=== PATIENT | male | born 1975 | race Caucasian/White ===

== ENCOUNTER 2017-02-06 12:33 | Emergency (ER) | payer OTHER ==
[2017-02-06 13:00] VITALS: RESP 18
[2017-02-06] MEDS ORDERED: KETOROLAC 60 MG/2 ML VIAL IM STA (13:14)
--- NOTE | 2017-02-06 13:14 | ED ---
Neck Injury/Pain HPI - General Chief Complaint: Neck Pain/Injury Stated Complaint: LUMP ON NECK--POSS CLOT Time Seen by Provider: 02/06/17 13:04 Source: RN notes reviewed Mode of arrival: wheelchair Limitations: no limitations - History of Present Illness Initial Comments: 41 yo male presents to the ER with a chief complaint of left-sided neck. Patient was last night he noticed a small bump to the left lateral aspect of the neck. Patient is tenderness surrounding the area. Patient states that shoots down his left arm. Patient does admit to a history of a DVT. Patient states he hasn't had any fever chills with this. Patient denies any cough cold. Patient states that he was concerned due to the continued pain so he thought that he should be seen. Patient states that the blood clot he had in the past was due to an injury is not currently on any anticoagulation. Patient states he hasn't had any fever chills denies headache.Patient denies any recent fever, chills, shortness of breath, chest pain, back pain, abdominal pain, nausea vomiting, numbness or tingling, dysuria or hematuria, constipation or diarrhea, headaches or visual changes, or any other current symptoms. - Related Data Home Medications Medication Instructions Recorded Confirmed Naproxen Sodium [Aleve] 220 mg PO DAILY PRN 02/06/17 02/06/17 Previous Rx's Medication Instructions Recorded Amoxicillin/Potassium Clav 1 tab PO Q12HR #20 tab 02/06/17 [Augmentin 875-125 Tablet] Hydrocodone/Acetaminophen [Hudson 1 each PO Q6HR PRN #20 tab 02/06/17 5-325] Allergies Allergy/AdvReac Type Severity Reaction Status Date / Time morphine AdvReac Unknown Hallucinati Verified 02/06/17 13:13 ons Review of Systems ROS Statement: Those systems with pertinent positive or pertinent negative responses have been documented in the HPI. ROS Other: All systems not noted in ROS Statement are negative. Past Medical History Past Medical History: Chest Pain / Angina, COPD, Deep Vein Thrombosis (DVT), GERD/Reflux Additional Past Medical History / Comment(s): sciatica , pneumothorax x2, emphysema,DJD,KIDNEY STONES,HIATAL HERNIA, History of Any Multi-Drug Resistant Organisms: None Reported Past Surgical History: Heart Catheterization Additional Past Surgical History / Comment(s): left lung biopsy, BLEBS REMOVED, spontaneous pneumo X2 requitring c/t. HAD TUBES IN EAR CHILD, ENDOSCOPY Past Anesthesia/Blood Transfusion Reactions: No Reported Reaction Past Psychological History: Anxiety, Depression Additional Psychological History / Comment(s): ATIVAN, stopped taking ativan, pt uses marijuana Smoking Status: Current every day smoker Past Alcohol Use History: Occasional Additional Past Alcohol Use History / Comment(s): STARTED SMOKING AT AGE 12- SMOKES 1 ppd, stated on weekends will drink case of 30 beer and during week may have 1-2 after work Past Drug Use History: Marijuana - Past Family History Father Family Medical History: Cancer, COPD, Hyperlipidemia, Hypertension, Myocardial Infarction ([place]), Renal Disease Additional Family Medical History / Comment(s): DAD AT AGE 67- EMPHYSEMA, VALVE REPLACEMENT 1983, of carcinoma "CUPS" Mother Additional Family Medical History / Comment(s): MOM IS 70 HAS MS General Exam - General Exam Comments Initial Comments: General: The patient is awake and alert, in no distress, and does not appear acutely ill. Eye: Pupils are equal, round and reactive to light, extra-ocular movements are intact; there is normal conjunctiva bilaterally. No signs of icterus. Ears, nose, mouth and throat: There are moist mucous membranes. Neck: The neck is supple, there is tenderness of the left lateral aspect of the neck with a palpable nodule most consistent with lymph node. No induration noted. Cardiovascular: There is a regular rate and rhythm. No murmur, rub or gallop is appreciated. Respiratory: Lungs are clear to auscultation, respirations are non-labored, breath sounds are equal. No wheezes, stridor, rales, or rhonchi. Back: There is no tenderness to palpation in the midline. There is no obvious deformity. No rashes noted. Musculoskeletal: Normal ROM, no tenderness, There is no pedal edema. There is no calf tenderness or swelling. Sensation intact. Pulses equal bilaterally 2+. Neurological: CN II-XII intact, There are no obvious motor or sensory deficits. Coordination appears grossly intact. Speech is normal. Skin: Skin is warm and dry and no rashes or lesions are noted. Psychiatric: Cooperative, appropriate mood & affect, normal judgment. Limitations: no limitations Course Vital Signs 02/06/17 12:57 Temperature 98.3 F Pulse Rate 83 Respiratory 18 Rate Blood Pressure 126/91 O2 Sat by Pulse 97 Oximetry Medical Decision Making - Medical Decision Making 40-year-old male presents with left lateral neck pain. Patient CAT scan and ultrasound and lab work was reviewed. There is an increased amount of lymph nodes. We'll start him antibiotics. We did discuss this could also be cancerous. We will give him heme oncology to follow-up with this we discussed the risk of this. We will also start him on warm compresses and antibiotics for superficial thrombosis as well as enlarged lymph nodes. We discussed giving something for pain as well. We discussed return parameters. We discussed all the patient's questions. Concerns. They stated he understood and they aren't inflamed. This time they will be discharged home. - Lab Data Result diagrams: 02/06/17 14:50 02/06/17 14:50 Lab Results 02/06/17 02/06/17 Range/Units 14:50 14:50 WBC 7.4 (3.8-10.6) k/uL RBC 5.02 (4.30-5.90) m/uL Hgb 16.8 (13.0-17.5) gm/dL Hct 50.6 (39.0-53.0) % MCV 100.6 H (80.0-100.0) fL MCH 33.4 (25.0-35.0) pg MCHC 33.2 (31.0-37.0) g/dL RDW 13.8 (11.5-15.5) % Plt Count 206 (150-450) k/uL Neutrophils % 47 % Lymphocytes % 36 % Monocytes % 9 % Eosinophils % 3 % Basophils % 2 % Neutrophils # 3.5 (1.3-7.7) k/uL Lymphocytes # 2.6 (1.0-4.8) k/uL Monocytes # 0.7 (0-1.0) k/uL Eosinophils # 0.2 (0-0.7) k/uL Basophils # 0.1 (0-0.2) k/uL Macrocytosis Slight Sodium 140 (137-145) mmol/L Potassium 4.4 (3.5-5.1) mmol/L Chloride 106 (98-107) mmol/L Carbon Dioxide 23 (22-30) mmol/L Anion Gap 11 mmol/L BUN 16 (9-20) mg/dL Creatinine 0.91 (0.66-1.25) mg/dL Est GFR (MDRD) Af Amer >60 (>60 ml/min/1.73 sqM) Est GFR (MDRD) Non-Af >60 (>60 ml/min/1.73 sqM) Glucose 72 L (74-99) mg/dL Calcium 9.7 (8.4-10.2) mg/dL Total Bilirubin 0.6 (0.2-1.3) mg/dL AST 19 (17-59) U/L ALT 24 (21-72) U/L Alkaline Phosphatase 64 (38-126) U/L Total Protein 7.2 (6.3-8.2) g/dL Albumin 4.2 (3.5-5.0) g/dL - Radiology Data Radiology results: report reviewed, image reviewed Disposition Clinical Impression: Superficial thrombophlebitis, Lymphadenopathy, Neck pain on left side Disposition: HOME SELF-CARE Condition: Stable Instructions: Lymphadenopathy (ED), Superficial Thrombophlebitis (ED) Additional Instructions: Please use medication as discussed. Please follow up with family doctor if symptoms have not improved over the next two days. Please return to the emergency room if your symptoms increase or worsen or for any other concerns. Prescriptions: Amoxicillin/Potassium Clav [Augmentin 875-125 Tablet] 1 tab PO Q12HR #20 tab Hydrocodone/Acetaminophen [Hudson 5-325] 1 each PO Q6HR PRN #20 tab PRN Reason: Pain Referrals: Graciela Alexander MD [Primary Care Provider] - 1-2 days Steve Harrington MD [STAFF PHYSICIAN] - 1-2 days Time of Disposition: 16:50
--- NOTE | 2017-02-06 14:25 | US ---
EXAMINATION TYPE: US venous doppler duplex UE LT DATE OF EXAM: 02/06/2017 1:51 PM COMPARISON: NONE CLINICAL HISTORY: Pain. shoulder and finger pain left arm, history of DVT right arm, patient not curr ently on thinners SIDE PERFORMED: left TECHNOLOGIST IMPRESSION: wnl Left Arm: Negative for DVT Satisfactory color flow, asystole, and compressibility is seen in left internal jugular vein. There i s satisfactory color flow and phasicity in the left subclavian vein. There is satisfactory compressib ility and color flow in the left axillary as well as brachial veins. There is satisfactory color flow and phasicity in the superficial basilic and cephalic veins. Satisfactory compressibility and color flow is seen in the radial and ulnar veins. IMPRESSION: No ultrasound evidence for acute DVT in the left upper extremity
--- NOTE | 2017-02-06 14:26 | US ---
EXAMINATION TYPE: US extremity nonvasc mass LT DATE OF EXAM: 02/06/2017 1:28 PM COMPARISON: NONE CLINICAL HISTORY: Pain. palp area just under left ear TECHNOLOGIST IMPRESSION: scanned area of concern, palpable area under left ear, there is 2.1 cm oval density, probable node, deep, and more superficially there is a 0.9 cm density, probable node. Scanning of area of clinical concern shows oval well-circumscribed lesion measuring 2.1 cm on long ax is. This lymph node does not have typical benign morphology. Smaller lesion is seen in the subcutaneo us layer towards end of study is oval and well-circumscribed IMPRESSION: Nonspecific lesions, abnormal adenopathy is not excluded. Consider nonemergent CT correl ation.
[2017-02-06] MEDS ORDERED: RX INFO: IV CONTRAST WAS GIVEN 1 EACH MISC MISCELLANE PRN (14:36)
[2017-02-06] MEDS ORDERED: SODIUM CHLORIDE 0.9% 1,000 ML IV STA (14:38)
[2017-02-06] MEDS ORDERED: KETOROLAC 30 MG/ML 1 ML VIAL IVP STA (14:38)
[2017-02-06 15:11] LABS: Basophils # (A) 0.1 k/uL (0-0.2); Basophils % (A) 2 %; CH 33.8; CHCM 33.8; Eosinophils # (A) 0.2 k/uL (0-0.7); Eosinophils % (A) 3 %; HCT 50.6 % (39.0-53.0); HDW 2.28; HGB 16.8 gm/dL (13.0-17.5); Luc # (Auto) 0.32; Luc % (Auto) 4; Lymphocytes # (A) 2.6 k/uL (1.0-4.8); Lymphocytes % (A) 36 %; MCH 33.4 pg (25.0-35.0); MCHC 33.2 g/dL (31.0-37.0); MCV 100.6 fL (80.0-100.0); Macrocytosis Slight; Mean Platelet Volume 8.7; Monocytes # (A) 0.7 k/uL (0-1.0); Monocytes % (A) 9 %; Neutrophils # (A) 3.5 k/uL (1.3-7.7); Neutrophils % (A) 47 %; RBC 5.02 m/uL (4.30-5.90); RDW 13.8 % (11.5-15.5); WBC 7.4 k/uL (3.8-10.6); WBC (Perox) 7.53
[2017-02-06] MEDS ORDERED: HYDROcodone/APAP 5-325MG 1 EACH TAB PO STA (15:19)
[2017-02-06 15:22] LABS: ALT 24 U/L (21-72); AST 19 U/L (17-59); Alkaline Phosphatase 64 U/L (38-126); Anion Gap 11 mmol/L; Blood Urea Nitrogen 16 mg/dL (9-20); Calcium 9.7 mg/dL (8.4-10.2); Carbon Dioxide 23 mmol/L (22-30); Chloride 106 mmol/L (98-107); Glucose 72 mg/dL (74-99); Non-African American GFR(MDRD) >60 (>60 ml/min/1.73 sqM); Potassium 4.4 mmol/L (3.5-5.1); Sodium 140 mmol/L (137-145); Total Bilirubin 0.6 mg/dL (0.2-1.3); Total Protein 7.2 g/dL (6.3-8.2)
--- NOTE | 2017-02-06 16:33 | CT ---
EXAMINATION TYPE: CT soft tissue neck w con DATE OF EXAM: 02/06/2017 3:51 PM HISTORY: Pt states of lump to left side of neck under ear. COMPARISON: CT neck May 31, 2016. Same day targeted neck ultrasound CT DLP: 376.2 mGycm. Automated Exposure Control for Dose Reduction was Utilized. TECHNIQUE: CT scan of the neck is performed with IV Contrast, patient injected with 100 mL of Omnipa que 300, axial images are obtained, coronal and sagittal reformatted images are reviewed. FINDINGS: A metallic BB is placed at level of palpable abnormality left sternocleidomastoid mastoid level. Ther e is tubular shaped low dense structure suspicious for draining thrombosed superficial or external ve in at this level. There are adjacent subcentimeter lymph nodes which correlate with recent ultrasound felt to reflect benign lymph nodes. There are diffuse prominent but subcentimeter lymph nodes throug hout the neck bilaterally. No definitive greater than 1 cm lymph nodes are present. A dominant left vertebral artery is incidentally noted. Patient has very little fat making evaluation suboptimal. Parotid and submandibular glands are symmetric and felt within normal limits. There is n o significant focal plaque in carotid bulbs bilaterally. Visualized sinuses are clear. Spine is strai ghtened. There is mild emphysematous change in visualized lungs. Airway is patent. Thyroid gland is u nremarkable. IMPRESSION: There are prominent but still subcentimeter lymph nodes throughout the neck bilaterally. Number of lymph nodes is more than typical though not significantly changed from 2016 study. Infectio us process or neoplasm/lymphoma is not entirely excluded. Need to further investigate by PET CT exam should be based on clinical and lab correlation. Consider hematology follow-up. Suspect probable or p ossible external jugular or superficial vein thrombus at level of palpable abnormality in the left ne ck.
[2017-02-06] MEDS ORDERED: HYDROmorphone 1 MG/ML 1 ML SYRINGE IVP STA (16:51)
[2017-02-06 16:58] VITALS: BP 141/76; PULSE 60; TEMP 98.6
== END 2017-02-06 17:11 | disposition home or self-care (01) ==
LOC: EC 12:33
DX: I80.8 Phlebitis and thrombophlebitis of other sites (principal); R59.1 Generalized enlarged lymph nodes; M54.2 Cervicalgia; F17.200 Nicotine dependence, unspecified, uncomplicated; Z88.5 Allergy status to narcotic agent
CPT/HCPCS: 36415; 80053; 85025; 76882; 93971; 70491; 99284; 96374; 96372; J1885; J1170; Q9967

== ENCOUNTER 2017-03-09 12:33 | Emergency (ER) | payer OTHER ==
[2017-03-09 12:38] VITALS: TEMP 98.2
[2017-03-09] MEDS ORDERED: RX INFO: IV CONTRAST WAS GIVEN 1 EACH MISC MISCELLANE PRN (13:07)
--- NOTE | 2017-03-09 13:12 | ED ---
General Adult HPI - General Chief complaint: Syncope Stated complaint: Syncope, Chest Pain, Hand Injury Time Seen by Provider: 03/09/17 13:00 Source: patient Mode of arrival: ambulatory Limitations: no limitations - History of Present Illness Initial comments: Patient is a pleasant 41-year-old male presenting to the emergency department following syncopal episode. Patient states he actually had 2 episodes. Patient states he may have hurt his neck when he fell. Patient has had a mild headache for the past couple of weeks. Patient has some mild chest discomfort. No dyspnea except for his chronic COPD which is unchanged. No fevers. Patient did have emotional upset earlier. Patient did punch a wooden fence several times with his hand. Patient refuses tetanus immunization. Patient does have a history of blood clot. Patient is not currently on blood thinners. Patient states he took himself off them. - Related Data Home Medications Medication Instructions Recorded Confirmed No Known Home Medications [No 03/09/17 03/09/17 Known Home Medications] Allergies Allergy/AdvReac Type Severity Reaction Status Date / Time morphine AdvReac Unknown Hallucinati Verified 03/09/17 13:46 ons Review of Systems ROS Statement: Those systems with pertinent positive or pertinent negative responses have been documented in the HPI. ROS Other: All systems not noted in ROS Statement are negative. Constitutional: Denies: fever Eyes: Denies: eye pain ENT: Denies: ear pain Respiratory: Denies: cough Cardiovascular: Reports: chest pain Endocrine: Denies: fatigue Gastrointestinal: Denies: abdominal pain Genitourinary: Denies: dysuria Musculoskeletal: Denies: back pain Skin: Denies: lesions Neurological: Reports: headache Past Medical History Past Medical History: Chest Pain / Angina, COPD, Deep Vein Thrombosis (DVT), GERD/Reflux Additional Past Medical History / Comment(s): sciatica , pneumothorax x2, emphysema,DJD,KIDNEY STONES,HIATAL HERNIA, History of Any Multi-Drug Resistant Organisms: None Reported Past Surgical History: Heart Catheterization Additional Past Surgical History / Comment(s): left lung biopsy, BLEBS REMOVED, spontaneous pneumo X2 requitring c/t. HAD TUBES IN EAR CHILD, ENDOSCOPY Past Anesthesia/Blood Transfusion Reactions: No Reported Reaction Past Psychological History: Anxiety, Depression Additional Psychological History / Comment(s): ATIVAN, stopped taking ativan, pt uses marijuana Smoking Status: Current every day smoker Past Alcohol Use History: Occasional Additional Past Alcohol Use History / Comment(s): STARTED SMOKING AT AGE 12- SMOKES 1 ppd, stated on weekends will drink case of 30 beer and during week may have 1-2 after work Past Drug Use History: Marijuana - Past Family History Father Family Medical History: Cancer, COPD, Hyperlipidemia, Hypertension, Myocardial Infarction ([place]), Renal Disease Additional Family Medical History / Comment(s): DAD AT AGE 67- EMPHYSEMA, VALVE REPLACEMENT 1983, of carcinoma "CUPS" Mother Additional Family Medical History / Comment(s): MOM IS 70 HAS MS General Exam Limitations: no limitations General appearance: alert, in no apparent distress Head exam: Present: atraumatic Eye exam: Present: normal appearance, PERRL ENT exam: Present: normal oropharynx Neck exam: Present: normal inspection Respiratory exam: Present: normal lung sounds bilaterally. Absent: chest wall tenderness Cardiovascular Exam: Present: regular rate, normal rhythm Expanded Peripheral pulses: 2+: Radial (R), Radial (L), Dorsalis Pedis (R), Dorsalis Pedis (L) GI/Abdominal exam: Present: soft. Absent: tenderness Extremities exam: Present: other (Right hand with swelling and abrasions) Neurological exam: Present: alert, CN II-XII intact. Absent: motor sensory deficit Expanded Cranial nerves: EOM's Intact: Normal Motor strength exam: RUE: 5, LUE: 5, RLE: 5, LLE: 5 Psychiatric exam: Present: normal affect, normal mood Skin exam: Absent: rash Course Vital Signs 03/09/17 03/09/17 12:35 14:39 Temperature 98.2 F Pulse Rate 85 82 Respiratory 18 16 Rate Blood Pressure 148/85 151/73 O2 Sat by Pulse 98 98 Oximetry EKG Findings - EKG Comments: EKG Findings:: Normal sinus rhythm at 86. Normal intervals. Normal axis. Normal QRS. Normal ST-T. Medical Decision Making - Medical Decision Making Patient was reevaluated and resting comfortably in bed. Symptoms are very mild at this time. Patient is advised of recommendation for admission. Patient is updated on results. Patient does demonstrate medical decision making. Patient refuses admission and will leave AGAINST MEDICAL ADVICE. - Lab Data Result diagrams: 03/09/17 13:21 03/09/17 13:21 Lab Results 03/09/17 03/09/17 03/09/17 Range/Units 13:21 13:21 13:21 WBC 8.7 (3.8-10.6) k/uL RBC 5.36 (4.30-5.90) m/uL Hgb 18.0 H (13.0-17.5) gm/dL Hct 54.2 H (39.0-53.0) % MCV 101.1 H (80.0-100.0) fL MCH 33.6 (25.0-35.0) pg MCHC 33.2 (31.0-37.0) g/dL RDW 13.8 (11.5-15.5) % Plt Count 192 (150-450) k/uL Neutrophils % 66 % Lymphocytes % 21 % Monocytes % 7 % Eosinophils % 1 % Basophils % 2 % Neutrophils # 5.7 (1.3-7.7) k/uL Lymphocytes # 1.9 (1.0-4.8) k/uL Monocytes # 0.6 (0-1.0) k/uL Eosinophils # 0.1 (0-0.7) k/uL Basophils # 0.1 (0-0.2) k/uL Macrocytosis Slight PT (9.0-12.0) sec INR (<1.1) APTT (22.0-30.0) sec Sodium 140 (137-145) mmol/L Potassium 4.3 (3.5-5.1) mmol/L Chloride 106 (98-107) mmol/L Carbon Dioxide 24 (22-30) mmol/L Anion Gap 10 mmol/L BUN 13 (9-20) mg/dL Creatinine 0.78 (0.66-1.25) mg/dL Est GFR (MDRD) Af Amer >60 (>60 ml/min/1.73 sqM) Est GFR (MDRD) Non-Af >60 (>60 ml/min/1.73 sqM) Glucose 93 (74-99) mg/dL POC Glucose (mg/dL) (75-99) mg/dL POC Glu Director Of Infection Prevention ID Calcium 10.2 (8.4-10.2) mg/dL Magnesium 2.0 (1.6-2.3) mg/dL Total Bilirubin 0.8 (0.2-1.3) mg/dL AST 18 (17-59) U/L ALT 20 L (21-72) U/L Alkaline Phosphatase 66 (38-126) U/L Total Creatine Kinase 89 (55-170) U/L CK-MB (CK-2) 0.6 (0.0-2.4) ng/mL CK-MB (CK-2) Rel Index 0.7 Troponin I <0.012 (0.000-0.034) ng/mL Total Protein 8.1 (6.3-8.2) g/dL Albumin 4.7 (3.5-5.0) g/dL 03/09/17 03/09/17 Range/Units 13:21 13:36 WBC (3.8-10.6) k/uL RBC (4.30-5.90) m/uL Hgb (13.0-17.5) gm/dL Hct (39.0-53.0) % MCV (80.0-100.0) fL MCH (25.0-35.0) pg MCHC (31.0-37.0) g/dL RDW (11.5-15.5) % Plt Count (150-450) k/uL Neutrophils % % Lymphocytes % % Monocytes % % Eosinophils % % Basophils % % Neutrophils # (1.3-7.7) k/uL Lymphocytes # (1.0-4.8) k/uL Monocytes # (0-1.0) k/uL Eosinophils # (0-0.7) k/uL Basophils # (0-0.2) k/uL Macrocytosis PT 11.5 (9.0-12.0) sec INR 1.2 (<1.1) APTT 20.8 L (22.0-30.0) sec Sodium (137-145) mmol/L Potassium (3.5-5.1) mmol/L Chloride (98-107) mmol/L Carbon Dioxide (22-30) mmol/L Anion Gap mmol/L BUN (9-20) mg/dL Creatinine (0.66-1.25) mg/dL Est GFR (MDRD) Af Amer (>60 ml/min/1.73 sqM) Est GFR (MDRD) Non-Af (>60 ml/min/1.73 sqM) Glucose (74-99) mg/dL POC Glucose (mg/dL) 88 (75-99) mg/dL POC Glu Director Of Infection Prevention ID Eyad Damico Calcium (8.4-10.2) mg/dL Magnesium (1.6-2.3) mg/dL Total Bilirubin (0.2-1.3) mg/dL AST (17-59) U/L ALT (21-72) U/L Alkaline Phosphatase (38-126) U/L Total Creatine Kinase (55-170) U/L CK-MB (CK-2) (0.0-2.4) ng/mL CK-MB (CK-2) Rel Index Troponin I (0.000-0.034) ng/mL Total Protein (6.3-8.2) g/dL Albumin (3.5-5.0) g/dL - Radiology Data Radiology results: report reviewed (CT angios chest shows no evidence of pulmonary embolism. Computed tomography scan of the brain shows no acute intercranial hemorrhage. Computed tomography scan of the cervical spine shows no fracture or dislocation. Degenerative change C6/C7.), image reviewed (X-ray of the hands shows soft tissue swelling without definite acute fracture.) Disposition Clinical Impression: Syncope, Contusion of hand, right Disposition: Left Against Medical Advice Instructions: Syncope (ED) Additional Instructions: Please follow-up with her doctor tomorrow. Return for chest pain, passing out, difficulty breathing, headache or weakness and worsening symptoms or other concerns. Twice daily use soap and water and apply antibiotic ointment and bandage right hand. Referrals: Graciela Alexander MD [Primary Care Provider] - 1-2 days
[2017-03-09 13:35] LABS: Basophils # (A) 0.1 k/uL (0-0.2); Basophils % (A) 2 %; CH 33.9; CHCM 33.7; Eosinophils # (A) 0.1 k/uL (0-0.7); Eosinophils % (A) 1 %; HCT 54.2 % (39.0-53.0); HDW 2.12; Luc # (Auto) 0.22; Luc % (Auto) 3; Lymphocytes # (A) 1.9 k/uL (1.0-4.8); Lymphocytes % (A) 21 %; MCH 33.6 pg (25.0-35.0); MCHC 33.2 g/dL (31.0-37.0); MCV 101.1 fL (80.0-100.0); Macrocytosis Slight; Mean Platelet Volume 8.7; Monocytes # (A) 0.6 k/uL (0-1.0); Monocytes % (A) 7 %; Neutrophils # (A) 5.7 k/uL (1.3-7.7); Neutrophils % (A) 66 %; RBC 5.36 m/uL (4.30-5.90); RDW 13.8 % (11.5-15.5); WBC 8.7 k/uL (3.8-10.6); WBC (Perox) 8.24
[2017-03-09 13:37] LABS: Glucose,Whole Blood 88 mg/dL (75-99)
[2017-03-09 13:45] LABS: ALT 20 U/L (21-72); AST 18 U/L (17-59); Alkaline Phosphatase 66 U/L (38-126); Anion Gap 10 mmol/L; Blood Urea Nitrogen 13 mg/dL (9-20); Calcium 10.2 mg/dL (8.4-10.2); Carbon Dioxide 24 mmol/L (22-30); Chloride 106 mmol/L (98-107); Glucose 93 mg/dL (74-99); Non-African American GFR(MDRD) >60 (>60 ml/min/1.73 sqM); Potassium 4.3 mmol/L (3.5-5.1); Sodium 140 mmol/L (137-145); Total Bilirubin 0.8 mg/dL (0.2-1.3); Total Protein 8.1 g/dL (6.3-8.2)
[2017-03-09 13:56] LABS: INR 1.2 (<1.1); Prothrombin Time 11.5 sec (9.0-12.0)
[2017-03-09 13:57] LABS: Creatine Kinase 89 U/L (55-170)
[2017-03-09 13:59] LABS: Partial Thromboplastin Time 20.8 sec (22.0-30.0)
[2017-03-09 14:10] LABS: Creatine Kinase MB 0.6 ng/mL (0.0-2.4); Troponin I <0.012 ng/mL (0.000-0.034)
--- NOTE | 2017-03-09 14:32 | CT ---
EXAMINATION TYPE: CT brain cspine wo con DATE OF EXAM: 03/09/2017 2:25 PM COMPARISON: CT brain October 11, 2014. CT neck February 06, 2017. HISTORY: Syncope. Headache and neck pain. CT DLP: 1347.7 mGycm. Automated Exposure Control for Dose Reduction was Utilized. TECHNIQUE: CT scan of the head and cervical spine are performed without contrast. FINDINGS: There is no acute intracranial hemorrhage, mass effect, or midline shift identified. The ventricles and sulci are within normal limits in size. Shrestha-white matter differentiation is maintai penelope. The globes are intact and the visualized sinuses are clear. Cervical spine is visualized in its entirety from C1 through upper thoracic levels and demonstrates s traightened alignment without evidence of acute fracture or dislocation. Prevertebral soft tissue ap pears within normal limits. The C1-C2 articulation is within normal limits on the coronal images. Vertebral body heights and disc space heights are maintained. There is posterior spur disc complex at C6-C7 level noted on sagittal image 25 and axial image 57. Remainder cervical levels are felt within normal limits. Lung apices are clear. Thyroid gland is unremarkable. IMPRESSION: 1. There is no acute fracture or dislocation evident in the cervical spine. Degenerative change C6-C7 level noted. 2. No acute intracranial hemorrhage, mass effect, or midline shift is seen.
--- NOTE | 2017-03-09 14:37 | CT ---
EXAMINATION TYPE: CT angio chest DATE OF EXAM: 03/09/2017 2:25 PM COMPARISON: CT chest September 06, 2016 HISTORY: Chest pains and pressure. CT DLP: 228.30 mGycm. Automated Exposure Control for Dose Reduction was Utilized. CONTRAST: CTA scan of the thorax is performed with IV Contrast, patient injected with 100 mL of Omnipaque 350, pulmonary embolism protocol. MIP Images are created on CT scanner and reviewed. FINDINGS: LUNGS: There is linear scarring in the lingula redemonstrated near coronal image 20. There is backgro und of mild emphysematous change most pronounced in lung apices redemonstrated with apical scarring b ilaterally. There is no concerning parenchymal nodule or mass. No pleural effusion or pneumothorax is seen bilaterally. Dependent atelectasis in both lower lobes is present. Tracheobronchial tree is pat ent. MEDIASTINUM: There is satisfactory enhancement of the pulmonary artery and its branches, there is no CT evidence for pulmonary embolism. There are no greater than 1 cm hilar or mediastinal lymph nodes. No cardiomegaly or pericardial effusion is seen. OTHER: There is 2 cm simple appearing cyst upper pole level right kidney redemonstrated. IMPRESSION: No CT evidence for pulmonary embolism. Mild emphysematous change without suspicious acute pulmonary process noted. No significant change from prior CT.
[2017-03-09 14:41] VITALS: BP 151/73; PULSE 82; RESP 16
--- NOTE | 2017-03-09 15:10 | XR ---
Right hand HISTORY: Pain and swelling 4 views of the right hand Comparison the right wrist 16 February 2016 Small ossific density at the proximal fifth metacarpal appears well-corticated is not felt likely to be acute. Bone mineralization and alignment appear maintained. Hypertrophic change present at the fir st carpometacarpal joint. Soft tissue swelling is suspected. Digits are flexed which may limit sensit ivity. IMPRESSION: Findings may be due to remote trauma. No definite acute fracture. Digit is flexed. There is soft tissue swelling. Follow-up as indicated. Exam is somewhat limited.
== END 2017-03-09 16:10 | disposition left against medical advice (07) ==
LOC: EC 12:33
DX: S60.221A Contusion of right hand, initial encounter (principal); R55 Syncope and collapse; M47.812 Spondylosis without myelopathy or radiculopathy, cervical region; R51 Headache; R07.89 Other chest pain; F17.200 Nicotine dependence, unspecified, uncomplicated; Z88.5 Allergy status to narcotic agent; W20.8XXA Other cause of strike by thrown, projected or falling object, initial encounter; W19.XXXA Unspecified fall, initial encounter
CPT/HCPCS: 36415; 93005; 80053; 82550; 82553; 83735; 84484; 85025; 85610; 85730; 73130; 72125; 70450; 71275; 99284; Q9967

== ENCOUNTER 2017-07-07 09:43 | Observation (INO) | payer OTHER ==
[2017-07-07] MEDS ORDERED: ASPIRIN 81 MG CHEW PO STA (10:21)
[2017-07-07] MEDS ORDERED: RX INFO: IV CONTRAST WAS GIVEN 1 EACH MISC MISCELLANE PRN (10:23)
[2017-07-07] MEDS ORDERED: KETOROLAC 30 MG/ML 1 ML VIAL IVP STA (10:24)
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
[2017-07-07 11:01] LABS: HCT 52.5 % (39.0-53.0); HGB 17.1 gm/dL (13.0-17.5); MCH 33.3 pg (25.0-35.0); MCHC 32.6 g/dL (31.0-37.0); MCV 102.2 fL (80.0-100.0); RBC 5.14 m/uL (4.30-5.90); WBC 7.5 k/uL (3.8-10.6); WBC (Perox) 7.51
[2017-07-07 11:02] LABS: Basophils # (A) 0.1 k/uL (0-0.2); Basophils % (A) 1 %; CH 34.4; CHCM 33.8; Eosinophils # (A) 0.1 k/uL (0-0.7); Eosinophils % (A) 2 %; HDW 2.23; Luc # (Auto) 0.16; Luc % (Auto) 2; Lymphocytes % (A) 27 %; Macrocytosis Slight; Mean Platelet Volume 8.8; Monocytes # (A) 0.5 k/uL (0-1.0); Monocytes % (A) 6 %; Neutrophils # (A) 4.7 k/uL (1.3-7.7); Neutrophils % (A) 63 %; RDW 14.4 % (11.5-15.5)
[2017-07-07 11:08] LABS: ALT 30 U/L (21-72); AST 17 U/L (17-59); Alkaline Phosphatase 64 U/L (38-126); Anion Gap 8 mmol/L; Blood Urea Nitrogen 14 mg/dL (9-20); Calcium 9.5 mg/dL (8.4-10.2); Carbon Dioxide 24 mmol/L (22-30); Chloride 108 mmol/L (98-107); Glucose 90 mg/dL (74-99); Non-African American GFR(MDRD) >60 (>60 ml/min/1.73 sqM); Potassium 4.1 mmol/L (3.5-5.1); Sodium 140 mmol/L (137-145); Total Bilirubin 0.4 mg/dL (0.2-1.3); Total Protein 6.8 g/dL (6.3-8.2)
[2017-07-07 11:12] LABS: INR 1.2 (<1.2)
[2017-07-07 11:13] LABS: Partial Thromboplastin Time 25.1 sec (22.0-30.0); Prothrombin Time 11.5 sec (9.0-12.0)
[2017-07-07 11:29] LABS: Creatine Kinase 143 U/L (55-170)
--- NOTE | 2017-07-07 11:35 | CT ---
EXAMINATION TYPE: CT angio chest DATE OF EXAM: 07/07/2017 COMPARISON: 03/09/2017 HISTORY: Chest pain CT DLP: 527 mGycm. Automated Exposure Control for Dose Reduction was Utilized. CONTRAST: CTA scan of the thorax is performed with IV Contrast, patient injected with 78 mL of Omnipaque 350, p ulmonary embolism protocol. MIP Images are created on CT scanner and reviewed. FINDINGS: LUNGS: The lungs are grossly clear with few areas of pleural parenchymal scarring. No focal consolida tion or pulmonary contusion is seen. Solitary noncalcified left upper lobe 3 mm pulmonary nodule is s ubpleural in location. This is retrospectively unchanged in comparison to the prior exam. Scattered p arenchymal blebs are seen in relation to mild centrilobular emphysematous changes. There is no pleur al effusion or pneumothorax seen. The tracheobronchial tree is patent. MEDIASTINUM: There is satisfactory enhancement of the pulmonary artery and its branches, there is no CT evidence for pulmonary embolism. There are no greater than 1 cm hilar or mediastinal lymph nodes. No cardiomegaly or pericardial effusion is seen. OTHER: No additional significant abnormality is seen. Simple right renal cyst measuring 2.1 cm is se en in the superior pole. No evidence of fracture or dislocation of the osseous structures. Osseous st ructures are unremarkable with no suspicious lesion. IMPRESSION: 1. No evidence of pulmonary embolism. 2. Mild centrilobular emphysematous changes. 3. Unchanged noncalcified solitary left upper lobe 3 mm pulmonary nodule. In a low-risk patient no fu rther workup is necessary. In a high-risk patient reevaluation in 12 months could be considered.
[2017-07-07 11:41] LABS: Creatine Kinase MB 0.8 ng/mL (0.0-2.4); Troponin I <0.012 ng/mL (0.000-0.034)
--- NOTE | 2017-07-07 12:15 | US ---
EXAMINATION TYPE: US venous doppler duplex UE RT DATE OF EXAM: 07/07/2017 COMPARISON: 09/06/2016 and 06/01/2016 CLINICAL HISTORY: Pain. Hx of right arm DVT. Patient states arm has always been swollen since last y ear when he had the DVT, but goes away. This time, it arm and had started two weeks ago. SIDE PERFORMED: Right Right Arm: Appears negative for DVT. Lymph node seen adjacent to right IJV = 3.0 x 0.9 x 0.8 cm Grayscale, color doppler, spectral doppler imaging performed of the deep veins of the upper extremiti es. There is normal flow, compressability and vascular waveforms. IMPRESSION: No evidence of deep venous thrombosis of the right upper extremity. Decrease in size of t he now nonenlarged lymph node adjacent to the right internal jugular vein.
[2017-07-07] MEDS ORDERED: ACETAMINOPHEN TAB 500 MG TAB PO STA (12:30)
[2017-07-07] MEDS ORDERED: traMADol 50 MG TAB PO STA (12:33)
[2017-07-07] MEDS ORDERED: HEPARIN SODIUM,PORCINE 5,000 UNIT/ML 1 ML VIAL IV PRN (12:45)
[2017-07-07] MEDS ORDERED: HEPARIN SODIUM,PORCINE 5,000 UNIT/ML 1 ML VIAL IV ONE (12:45)
[2017-07-07] MEDS ORDERED: HEPARIN SODIUM,PORCINE/D5W PMX 25,000 UNIT in DEXTROSE/WATER 1 500ML.BAG IV SCH (12:45)
[2017-07-07] MEDS ORDERED: NITROGLYCERIN SL TABS 0.4 MG TAB SUBLINGUAL PRN (12:45)
[2017-07-07] MEDS ORDERED: NITROGLYCERIN OINT 1 INCH/GM PACKET TOPICAL STA (12:45)
[2017-07-07 12:54] VITALS: RESP 18
[2017-07-07] MEDS: HYDROmorphone 1 MG/ML 1 ML SYRINGE IVP PRN ×3 (15:30→23:42)
[2017-07-07 17:28] LABS: Creatine Kinase 113 U/L (55-170)
[2017-07-07 17:40] LABS: Creatine Kinase MB 0.6 ng/mL (0.0-2.4); Troponin I <0.012 ng/mL (0.000-0.034)
[2017-07-07] MEDS: traMADol 50 MG TAB PO PRN (18:02)
--- NOTE | 2017-07-07 19:00 | XR ---
EXAMINATION TYPE: XR chest 2V DATE OF EXAM: 07/07/2017 COMPARISON: 05/30/2016 HISTORY: Chest pain TECHNIQUE: Frontal and lateral views of the chest are obtained. FINDINGS: There is no heart failure nor confluent pneumonic infiltrate. There are no hilar masses. C ostophrenic angles are clear. Bony thorax is intact. IMPRESSION: No active cardiopulmonary disease. No change.
--- NOTE | 2017-07-07 19:02 | XR ---
EXAMINATION TYPE: XR ribs LT DATE OF EXAM: 07/07/2017 COMPARISON: NONE HISTORY: Left rib pain TECHNIQUE: 4 views FINDINGS: I see no pleural effusion or pneumothorax. Left lung is clear of infiltrate. There is an ol d healed fracture left fourth rib. IMPRESSION: No acute abnormality of the left ribs.
[2017-07-07 23:19] LABS: Creatine Kinase 107 U/L (55-170)
[2017-07-07 23:31] LABS: Creatine Kinase MB 0.7 ng/mL (0.0-2.4); Troponin I <0.012 ng/mL (0.000-0.034)
[2017-07-07] MEDS: NITROGLYCERIN OINT 1 INCH/GM PACKET TOPICAL SCH (23:38)
[2017-07-08] MEDS: traMADol 50 MG TAB PO PRN ×2 (00:12→07:27)
[2017-07-08] MEDS: NITROGLYCERIN OINT 1 INCH/GM PACKET TOPICAL SCH ×2 (00:14→07:28)
[2017-07-08] MEDS: HYDROmorphone 1 MG/ML 1 ML SYRINGE IVP PRN ×2 (03:53→08:25)
[2017-07-08 07:02] LABS: Cholesterol 154 mg/dL (<200); HDL Cholesterol 55 mg/dL (40-60)
[2017-07-08 07:41] VITALS: BP 121/79; TEMP 97.8
[2017-07-08] MEDS ORDERED: ASPIRIN 325 MG TAB PO SCH (09:00)
[2017-07-08 10:18] VITALS: PULSE 66
--- NOTE | 2017-07-08 11:27 | HP ---
DATE OF ADMISSION: 07/07/17 CHIEF COMPLAINT: Chest pain. HISTORY OF PRESENT ILLNESS: This 42-year-old gentleman with past medical history of multiple medical problems including chest pain, angina, COPD, DVT, history of anxiety, depression, being followed by Dr. Alexander in the outpatient setting was apparently hit by the top of a stove while at work which the patient was moving. The patient was able to regain balance but after that, the patient was complaining of increasing pain while moving, occasionally sharp type of pain which has started in the left side of the chest but today the patient had some heaviness and bilateral extremity heaviness and some vague discomfort in the anterior part of the chest. The patient came to [facility] and was admitted to the hospital for further evaluation and treatment. There is no history of any fever, rigors or chills. No history of headache, loss of consciousness or seizures. Past medical history of chest pain, history of COPD, GERD, DVT, sciatica, pneumothorax. Mediations prior to admission include: Home medications are: Ecotrin 160 mg po daily. ALLERGIES: MORPHINE. FAMILY HISTORY: No history of cancer, COPD, hypertension, hyperlipidemia, history of myocardial infarction, renal disease. SOCIAL HISTORY: History of alcohol, history of THC, history of smoking. REVIEW OF SYSTEMS: HEENT: No diminished vision. No diminished hearing. Cardiovascular system: Chest pain. Respiratory: No cough, hemoptysis. GI: No nausea or vomiting. : No dysuria. Nervous system: No numbness, weakness. Allergy/Immunology: No asthma or hayfever. Musculoskeletal: As mentioned earlier. Hematology/oncology: No history of anemia. Endocrine: No history of diabetes mellitus or hypothyroidism. Constitutional: As mentioned earlier. Dermatology: Negative. Rheumatology: Negative. Psychiatry: As mentioned earlier. PHYSICAL EXAMINATION: The patient is alert, oriented times three. Pulse 65. Blood pressure 121/72. Respiratory rate 18, temperature 97.9. Pulse ox 94% on room air. HEENT: Conjunctivae normal. NECK: No JVD. Cardiovascular: S1, S2. No S3, no S4. Respiratory: Breath sounds diminished at the bases. A few scattered rhonchi and no crackles. Abdomen is soft, nontender. No mass palpable. Legs: No edema. No swelling. Nervous system: Higher functions as mentioned earlier. Moves all four limbs. No focal deficits. Lymphatics: No lymph nodes palpable in the neck, axilla or groin. Skin: No ulcer, rash or bleeding. Otherwise, minimal tenderness in the left upper chest area. Some abrasions also present. LABS: WBC 7.1, hemoglobin chloride 108. FINAL DIAGNOSES: 1. Left sided chest pain, possibly musculoskeletal, rule out rib fracture. 2. Chest pain, rule out unstable angina. 3. History of chronic obstructive pulmonary disease. 4. History of deep venous thrombosis. 5. History of gastroesophageal reflux disease. 6. History of anxiety, depression. 7. History of pulmonary surgery for blebs removal. 8. History of spontaneous pneumothorax. RECOMMENDATIONS AND DISCUSSION: In this 42 -year-old gentleman who presented with multiple complex medical issues, at this time, I recommend to continue the current medications. Continue symptomatic treatment. I would recommend chest x-ray as well as rib x-rays. Otherwise, symptomatic treatment will also be provided for pain. Deep venous thrombosis prophylaxis. Cardiology consultation and further testing to rule out the possibility of coronary artery disease recommended. Further recommendations to follow. MTDD
--- NOTE | 2017-07-08 13:38 | P.CRDCN ---
History of Present Illness Consult date: 07/08/17 History of present illness: This is a 42-year-old male. Past medical history significant for COPD, DVT, GERD and chronic tobacco abuse. Patient presents with complaints of left chest wall pain. The patient states he was moving some furniture using a beba. He was trying to lift a stove and the stove fell back into his left chest wall. This occurred on Tuesday. The pain has persisted and radiated into bilateral arms and bilateral legs. He complains of right arm swelling and extremities feeling heavy. He denies shortness of breath, dizziness, nausea or diaphoresis. He states he has seen a echocardiography technologist in the past and a catheterization was performed which he states was normal. He had a negative dobutamine stress test in 2014. He sees Dr. Bhandari as an outpatient. EKG done shows NSR, rate of 66 beats per minute with no T-wave abnormality. When compared with old EKG this appears consistent. Troponin are negative x3. Chest x-ray, rib xray and CTA are all negative for any acute process or PE. Review of Systems REVIEW OF SYSTEMS: Patient continues to c/o chest discomfort described as soreness. No shortness of breath. No diaphoresis. Denies headache, dizziness, blurred vision, double vision. No dyspnea on exertion. Patient denies any stomach discomfort. No nausea, vomiting. No hematochezia. No hematemesis. Denies any black stools or blood in his stools. No syncope. No palpitations. No cough. No recent fever or chills. No muscle weakness or numbness. Past Medical History Past Medical History: Chest Pain / Angina, COPD, Deep Vein Thrombosis (DVT), GERD/Reflux Additional Past Medical History / Comment(s): sciatica , pneumothorax x2, emphysema,DJD,KIDNEY STONES,HIATAL HERNIA, History of Any Multi-Drug Resistant Organisms: None Reported Past Surgical History: Heart Catheterization Additional Past Surgical History / Comment(s): left lung biopsy, BLEBS REMOVED, spontaneous pneumo X2 requitring c/t. HAD TUBES IN EAR CHILD, ENDOSCOPY Past Anesthesia/Blood Transfusion Reactions: No Reported Reaction Smoking Status: Current every day smoker - Past Family History Father Family Medical History: Cancer, COPD, Hyperlipidemia, Hypertension, Myocardial Infarction ([place]), Renal Disease Additional Family Medical History / Comment(s): DAD AT AGE 67- EMPHYSEMA, VALVE REPLACEMENT 1983, of carcinoma "CUPS" Mother Additional Family Medical History / Comment(s): MOM IS 70 HAS MS Medications and Allergies Home Medications Medication Instructions Recorded Confirmed Type Aspirin EC [Ecotrin Low Dose] 162 mg PO DAILY 07/07/17 07/07/17 History Allergies Allergy/AdvReac Type Severity Reaction Status Date / Time morphine AdvReac Unknown Hallucinati Verified 07/07/17 10:04 ons Physical Exam Vitals: Vital Signs Temp Pulse Pulse Resp BP BP BP 07/08/17 07:40 97.8 F 63 18 121/79 07/08/17 04:00 97.5 F L 56 L 18 114/72 07/07/17 23:18 97.8 F 65 18 119/73 07/07/17 19:21 97.7 F 66 18 118/78 07/07/17 16:57 65 18 07/07/17 16:43 97.9 F 65 18 121/70 07/07/17 16:10 97.8 F 60 18 119/66 07/07/17 15:31 71 18 146/79 07/07/17 14:22 67 18 110/62 07/07/17 12:53 61 18 126/73 07/07/17 11:30 60 18 117/75 07/07/17 10:30 66 16 115/77 07/07/17 09:55 98.5 F 63 20 132/77 Pulse Ox 07/08/17 07:40 95 07/08/17 04:00 95 07/07/17 23:18 94 L 07/07/17 19:21 97 07/07/17 16:57 07/07/17 16:43 94 L 07/07/17 16:10 95 07/07/17 15:31 96 07/07/17 14:22 94 L 07/07/17 12:53 95 07/07/17 11:30 96 07/07/17 10:30 96 07/07/17 09:55 100 Intake and Output 07/07/17 07/08/17 07/08/17 22:59 06:59 14:59 Intake Total 240 178.403 Balance 240 178.403 Intake: Intake, IV Titration 178.403 Amount Heparin Sodium,Porcine/ 178.403 D5w Pmx 25,000 unit In Dextrose/Water 1 500ml. bag @ 12 UNITS/KG/HR 17. 96 mls/hr IV .Q24H [facility] Rx #:[id number] Oral 240 Other: Voiding Method Toilet Toilet Weight 69.2 kg GENERAL: This is a 42-year-old in no apparent distress at the time of my examination. HEENT: Head is atraumatic, normocephalic. Pupils are equal, round. Sclerae anicteric. Conjunctivae are clear. Mucous membranes of the mouth are moist. Neck is supple. There is no jugular venous distention. No carotid bruit is heard. LUNGS: Clear to auscultation no wheezes, rales or rhonchi. Positive chest wall tenderness is noted on palpation and with deep breathing to left chest wall. HEART: Regular rate and rhythm without murmurs, rubs or gallops. S1 and S2 heard. ABDOMEN: Soft, nontender. Bowel sounds are heard. No organomegaly noted. EXTREMITIES: 2+ peripheral pulses with no evidence of peripheral edema and no calf tenderness noted. NEUROLOGIC: Patient is awake, alert and oriented x3. Results 07/08/17 06:11 07/07/17 10:45 Cardiac Enzymes 07/07/17 07/07/17 07/07/17 Range/Units 10:45 10:45 16:56 AST 17 (17-59) U/L CK-MB (CK-2) 0.8 0.6 (0.0-2.4) ng/mL Troponin I <0.012 <0.012 (0.000-0.034) ng/mL 07/07/17 Range/Units 22:43 AST (17-59) U/L CK-MB (CK-2) 0.7 (0.0-2.4) ng/mL Troponin I <0.012 (0.000-0.034) ng/mL Coagulation 07/07/17 07/07/17 07/08/17 Range/Units 10:45 20:27 06:11 PT 11.5 (9.0-12.0) sec APTT 25.1 32.5 H 50.9 H (22.0-30.0) sec Lipids 07/08/17 Range/Units 06:11 Triglycerides 95 (<150) mg/dL Cholesterol 154 (<200) mg/dL HDL Cholesterol 55 (40-60) mg/dL CBC 07/07/17 07/08/17 Range/Units 10:45 06:11 WBC 7.5 (3.8-10.6) k/uL RBC 5.14 (4.30-5.90) m/uL Hgb 17.1 (13.0-17.5) gm/dL Hct 52.5 (39.0-53.0) % Plt Count 193 186 (150-450) k/uL Comprehensive Metabolic Panel 07/07/17 Range/Units 10:45 Sodium 140 (137-145) mmol/L Potassium 4.1 (3.5-5.1) mmol/L Chloride 108 H (98-107) mmol/L Carbon Dioxide 24 (22-30) mmol/L BUN 14 (9-20) mg/dL Creatinine 0.80 (0.66-1.25) mg/dL Glucose 90 (74-99) mg/dL Calcium 9.5 (8.4-10.2) mg/dL AST 17 (17-59) U/L ALT 30 (21-72) U/L Alkaline Phosphatase 64 (38-126) U/L Total Protein 6.8 (6.3-8.2) g/dL Albumin 4.1 (3.5-5.0) g/dL Current Medications Generic Name Dose Route Start Last Admin Trade Name Freq PRN Reason Stop Dose Admin Aspirin 325 mg 07/08/17 09:00 Aspirin PO DAILY [facility] Heparin Sodium (Porcine) 0 unit 07/07/17 12:45 07/08/17 00:52 Heparin IV 3,460 unit Q6HR PRN Administration Low PTT Protocol Hydromorphone HCl 0.5 mg 07/07/17 15:23 07/08/17 03:53 Dilaudid IVP 0.5 mg Q4HR PRN Administration Pain Heparin Sodium/Dextrose 25,000 500 mls @ 17.96 mls/hr 07/07/17 12:45 00:02 unit/ IV Solution IV 15 units/kg/hr .Q24H [facility] 22.45 mls/hr Protocol Titration 12 UNITS/KG/HR Miscellaneous Information 1 each 07/07/17 10:23 07/07/17 10:50 Rx Info: Iv Contrast Was Given MISCELLANE 07/09/17 10:23 1 each DAILY PRN Administration Per Protocol Nitroglycerin 1 inch 07/07/17 18:00 07/08/17 07:28 Nitro-Bid Oint TOPICAL Not Given Q6HR [facility] Nitroglycerin 0.4 mg 07/07/17 12:45 Nitrostat SUBLINGUAL Q5M PRN Chest Pain Tramadol HCl 100 mg 07/07/17 12:49 07/08/17 07:27 Ultram PO 100 mg QID PRN Administration Pain Intake and Output 07/07/17 07/08/17 07/08/17 22:59 06:59 14:59 Intake Total 240 178.403 Balance 240 178.403 Intake: Intake, IV Titration 178.403 Amount Heparin Sodium,Porcine/ 178.403 D5w Pmx 25,000 unit In Dextrose/Water 1 500ml. bag @ 12 UNITS/KG/HR 17. 96 mls/hr IV .Q24H [facility] Rx #:[id number] Oral 240 Other: Voiding Method Toilet Toilet Weight 69.2 kg 07/08/17 06:11 07/07/17 10:45 EKG Interpretations (text) EKG reveals normal sinus mechanism with no acute changes from previous with normal ST-T segments and no elevations/depressions. Normal QRS complex. Assessment and Plan Plan: ASSESSMENT 1. Chest wall strain 2. Chronic tobacco abuse PLAN This patient's presentation and clinical condition all suggest this is a musculoskeletal chest wall pain. Heparin can be discontinued. Patient can be given anti-inflammatories for pain. From a cardiac standpoint he is stable for discharge home. He can follow-up with Dr. Bhandari in the office in 2 weeks. Nurse Practitioner note has been reviewed, I agree with a documented findings and plan of care. Patient was seen and examined.
--- NOTE | 2017-07-13 14:52 | ECHOF ---
Referral Reason: MEASUREMENTS -------- HEIGHT: 175.3 cm WEIGHT: 74.8 kg BP: 130/40 IVSd: 1.0 cm (0.6 - 1.1) LVIDd: 4.2 cm (3.9 - 5.3) LVPWd: 1.1 cm (0.6 - 1.1) IVSs: 1.2 cm LVIDs: 3.2 cm LVPWs: 1.2 cm LA Diam: 3.0 cm (2.7 - 3.8) Ao Diam: 2.8 cm (2.0 - 3.7) AV Cusp: 1.5 cm (1.5 - 2.6) MV EXCURSION: 23.601 mm (> 18.000) MV EF SLOPE: 105 mm/s (70 - 150) EPSS: 1.1 cm MV E Kaiser: 0.38 m/s MV DecT: 228 ms MV A Kaiser: 0.45 m/s MV E/A Ratio: 0.85 RAP: 5.00 mmHg RVSP: 8.79 mmHg FINDINGS -------- Sinus rhythm. This was a technically adequate study. LV size, wall thickness and systolic function are normal, with an EF greater than 55%. The right ventricle is normal in size. The left atrial size is normal. The right atrial size is normal. The aortic valve is trileaflet, and appears structurally normal. No aortic stenosis or regurgitation. Mild mitral regurgitation is present. Mild tricuspid regurgitation present. There is no evidence of pulmonary hypertension. The right ventricular systolic pressure, as measured by Doppler, is 8.79mmHg. There is no pulmonic regurgitation present. The aortic root size is normal. There is no pericardial effusion. CONCLUSIONS -------- 1. LV size, wall thickness and systolic function are normal, with an EF greater than 55%. 2. Mild mitral regurgitation is present. 3. Mild tricuspid regurgitation present. 4. There is no evidence of pulmonary hypertension. 5. The right ventricular systolic pressure, as measured by Doppler, is 8.79mmHg. 6. There is no pulmonic regurgitation present. SUPERVISING EDITOR TRAILER: Brandy Rashid RDCS
--- NOTE | 2017-07-22 14:09 | P.DS ---
Providers Date of admission: 07/07/17 12:45 Attending physician: Brandan Esparza Consults: 07/07/17 12:45 Consult Physician Urgent Consulting Provider: Low Phelps Consult Reason/Comments: cp Do you want consulting provider notified?: Yes Primary care physician: [facility] Course: Date of service 07/08/2017. This 42-year-old woman gentleman was admitted with left-sided chest pain. Cardiology saw the patient. Cardiac enzymes are negative. Myocardial infarction ruled out. The patient is thought muscle skeletal. Treated symptomatically. Patient improved significantly. Cardiology saw the patient. Recommended outpatient follow-up with the primary physician and cardiology. Stable condition. Overall prognosis guarded. On exam vitals stable. Cardio S1 and S2 normal. Breath sounds equal. Abdomen soft nontender. Final diagnosis 1. Left-sided chest pain possibly muscle skeletal. 2. History of COPD 3. History of DVT 4. History of GERD 5. History of anxiety depression 6. History of for palmar surgery and blobs removal 7. History of spontaneous pneumothorax Patient Condition at Discharge: Fair Plan - Discharge Summary New Discharge Prescriptions: New HYDROcodone/APAP 5-325MG [[place] 5-325] 1 tab PO Q6HR PRN #20 tab PRN Reason: Pain Ibuprofen [Motrin] 600 mg PO Q8HR PRN #20 tab PRN Reason: Pain Continue Aspirin EC [Ecotrin Low Dose] 162 mg PO DAILY Discharge Medication List Aspirin EC [Ecotrin Low Dose] 162 mg PO DAILY 07/07/17 [History] HYDROcodone/APAP 5-325MG [[place] 5-325] 1 tab PO Q6HR PRN #20 tab 07/08/17 [Rx] Ibuprofen [Motrin] 600 mg PO Q8HR PRN #20 tab 07/08/17 [Rx] Follow up Appointment(s)/Referral(s): Yolanda Hicks MD [STAFF PHYSICIAN] - 4 Weeks (pulmonary nodule) Graciela Alexander MD [Primary Care Provider] - 3 Days Patient Instructions/Handouts: Chest Pain (GEN) Discharge Disposition: HOME SELF-CARE
== END 2017-07-08 12:37 | disposition home or self-care (01) ==
LOC: EC 09:43 → 3OBS 12:45
PROVIDERS: ADMIT Hospitalist; ATTEND Hospitalist
DX: R07.89 Other chest pain (principal); J44.9 Chronic obstructive pulmonary disease, unspecified; Z86.718 Personal history of other venous thrombosis and embolism; K21.9 Gastro-esophageal reflux disease without esophagitis; F41.9 Anxiety disorder, unspecified; F32.9 Major depressive disorder, single episode, unspecified; R68.84 Jaw pain; R20.2 Paresthesia of skin; M19.90 Unspecified osteoarthritis, unspecified site; K44.9 Diaphragmatic hernia without obstruction or gangrene; F17.200 Nicotine dependence, unspecified, uncomplicated; R59.1 Generalized enlarged lymph nodes; S20.212A Contusion of left front wall of thorax, initial encounter; X58.XXXA Exposure to other specified factors, initial encounter; Z82.49 Family history of ischemic heart disease and other diseases of the circulatory system; Z95.2 Presence of prosthetic heart valve; Z87.442 Personal history of urinary calculi; Z88.5 Allergy status to narcotic agent; Z79.82 Long term (current) use of aspirin; Z86.711 Personal history of pulmonary embolism
CPT/HCPCS: 96366 ×3; 96376 ×3; 96365; 96375; 99285; 36415; 93005; 93306; 85379; 80061; 80053; 82550; 82553; 83735; 84484; 85025; 85049; 85610; 85730 ×2; 71020; 71100; 93971; 71275; G0378 ×2; J1644 ×3; Q9967; J1885; J1170 ×2

== ENCOUNTER 2017-08-05 23:17 | Inpatient (IN) | payer OTHER ==
--- NOTE | 2017-08-06 00:11 | ED ---
General Adult HPI - General Chief complaint: Psychiatric Symptoms Stated complaint: mental maryjane Time Seen by Provider: 08/05/17 23:28 Source: patient, RN notes reviewed, old records reviewed Mode of arrival: ambulatory Limitations: no limitations - History of Present Illness Initial comments: This is a 42-year-old male to the ER for evaluation. Patient presents today for evaluation regarding psychiatric disease. Psychiatric illness. Patient states she is he is suicidal. Patient denies drug or alcohol abuse. He feels hopeless and feels like he is getting worse - Related Data Home Medications Medication Instructions Recorded Confirmed Ibuprofen [Motrin] 200 - 400 mg PO Q6HR PRN 08/05/17 08/05/17 Allergies Allergy/AdvReac Type Severity Reaction Status Date / Time morphine AdvReac Unknown Hallucinati Verified 08/05/17 23:36 ons Review of Systems ROS Statement: Those systems with pertinent positive or pertinent negative responses have been documented in the HPI. ROS Other: All systems not noted in ROS Statement are negative. Past Medical History Past Medical History: Chest Pain / Angina, COPD, Deep Vein Thrombosis (DVT), GERD/Reflux Additional Past Medical History / Comment(s): sciatica , pneumothorax x2, emphysema,DJD,KIDNEY STONES,HIATAL HERNIA, History of Any Multi-Drug Resistant Organisms: None Reported Past Surgical History: Heart Catheterization Additional Past Surgical History / Comment(s): left lung biopsy, BLEBS REMOVED, spontaneous pneumo X2 requitring c/t. HAD TUBES IN EAR CHILD, ENDOSCOPY Past Anesthesia/Blood Transfusion Reactions: No Reported Reaction Past Psychological History: Anxiety, Depression Smoking Status: Current every day smoker - Past Family History Father Family Medical History: Cancer, COPD, Hyperlipidemia, Hypertension, Myocardial Infarction ([place]), Renal Disease Additional Family Medical History / Comment(s): DAD AT AGE 67- EMPHYSEMA, VALVE REPLACEMENT 1983, of carcinoma "CUPS" Mother Additional Family Medical History / Comment(s): MOM IS 70 HAS MS General Exam Limitations: no limitations General appearance: alert, in no apparent distress Head exam: Present: atraumatic, normocephalic, normal inspection Eye exam: Present: normal appearance, PERRL, EOMI. Absent: scleral icterus, conjunctival injection, periorbital swelling ENT exam: Present: normal exam, mucous membranes moist Neck exam: Present: normal inspection. Absent: tenderness, meningismus, lymphadenopathy Respiratory exam: Present: normal lung sounds bilaterally. Absent: respiratory distress, wheezes, rales, rhonchi, stridor Cardiovascular Exam: Present: regular rate, normal rhythm, normal heart sounds. Absent: systolic murmur, diastolic murmur, rubs, gallop, clicks GI/Abdominal exam: Present: soft, normal bowel sounds. Absent: distended, tenderness, guarding, rebound, rigid Extremities exam: Present: normal inspection, full ROM, normal capillary refill. Absent: tenderness, pedal edema, joint swelling, calf tenderness Back exam: Present: normal inspection Neurological exam: Present: alert, oriented X3, CN II-XII intact Psychiatric exam: Present: normal affect, normal mood Skin exam: Present: warm, dry, intact, normal color. Absent: rash Course Vital Signs 08/05/17 08/06/17 08/06/17 23:19 01:30 04:22 Temperature 97.9 F 97.8 F 97.8 F Pulse Rate 106 H 62 65 Respiratory 18 16 16 Rate Blood Pressure 147/79 118/54 108/58 O2 Sat by Pulse 98 100 100 Oximetry - Reevaluation(s) Reevaluation #1: 08/06/17 00:11 Patient's medically clear for psychiatric evaluation Medical Decision Making - Medical Decision Making 42 male seen and evaluated by of the psychiatry, patient be admitted for psychiatric evaluation and treatment - Lab Data Lab Results 08/06/17 Range/Units 00:09 Urine Opiates Screen Not Detected (NotDetected) Ur Oxycodone Screen Not Detected (NotDetected) Urine Methadone Screen Not Detected (NotDetected) Ur Propoxyphene Screen Not Detected (NotDetected) Ur Barbiturates Screen Not Detected (NotDetected) U Tricyclic Antidepress Not Detected (NotDetected) Ur Phencyclidine Scrn Not Detected (NotDetected) Ur Amphetamines Screen Not Detected (NotDetected) U Methamphetamines Scrn Not Detected (NotDetected) U Benzodiazepines Scrn Not Detected (NotDetected) Urine Cocaine Screen Not Detected (NotDetected) U Marijuana (THC) Screen Not Detected (NotDetected) Disposition Clinical Impression: Acute anxiety, Depression, Suicidal ideation Disposition: TRANSFER TO PSYCH HOSP/UNIT Condition: Fair
[2017-08-06] MEDS ORDERED: MAGNESIUM HYDROXIDE 2,400 MG/10 ML CUP PO PRN (04:37)
[2017-08-06] MEDS ORDERED: MAG HYDROX/AL HYDROX/SIMETH 30 ML CUP PO PRN (04:37)
[2017-08-06] MEDS ORDERED: ACETAMINOPHEN TAB 325 MG TAB PO PRN (04:37)
[2017-08-06] MEDS: LORazepam 1 MG TAB PO PRN (06:36)
[2017-08-06 08:34] LABS: ALT 28 U/L (21-72); AST 21 U/L (17-59); Alkaline Phosphatase 68 U/L (38-126); Anion Gap 10 mmol/L; Basophils # (A) 0.1 k/uL (0-0.2); Basophils % (A) 1 %; Blood Urea Nitrogen 12 mg/dL (9-20); CH 33.3; CHCM 33.6; Calcium 9.8 mg/dL (8.4-10.2); Carbon Dioxide 24 mmol/L (22-30); Chloride 108 mmol/L (98-107); Eosinophils # (A) 0.1 k/uL (0-0.7); Eosinophils % (A) 2 %; Glucose 84 mg/dL (74-99); HCT 49.4 % (39.0-53.0); HDW 2.25; HGB 16.5 gm/dL (13.0-17.5); Luc % (Auto) 3; Lymphocytes # (A) 1.8 k/uL (1.0-4.8); Lymphocytes % (A) 24 %; MCH 33.4 pg (25.0-35.0); MCHC 33.5 g/dL (31.0-37.0); MCV 99.7 fL (80.0-100.0); Mean Platelet Volume 8.2; Monocytes # (A) 0.7 k/uL (0-1.0); Monocytes % (A) 9 %; Neutrophils # (A) 4.6 k/uL (1.3-7.7); Neutrophils % (A) 62 %; Non-African American GFR(MDRD) >60 (>60 ml/min/1.73 sqM); Potassium 4.5 mmol/L (3.5-5.1); RBC 4.96 m/uL (4.30-5.90); Sodium 142 mmol/L (137-145); Total Bilirubin 0.6 mg/dL (0.2-1.3); Total Protein 7.3 g/dL (6.3-8.2); WBC 7.4 k/uL (3.8-10.6); WBC (Perox) 7.05
[2017-08-06] MEDS: NICOTINE 14MG/24HR PATCH TRANSDERM SCH (09:20)
[2017-08-06] MEDS: ESCITALOPRAM 10 MG TAB PO SCH (10:17)
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
--- NOTE | 2017-08-06 14:41 | CONS ---
CONSULTATION REASON FOR CONSULTATION: Medical management for COPD and other medical problems. CHIEF COMPLAINT: Depression. HISTORY OF PRESENTING ILLNESS: Patient is a 42-year-old male with a known history of COPD, nicotine addiction and alcohol abuse on a daily basis. Came to the hospital for psychiatric evaluation. Apparently, patient has been going through a tough time in his life and has felt very depressed and he came to the ER for help. Patient states that he is suicidal as well. Denies any particular plan. Patient otherwise denies any drug abuse or IVDU. Patient felt hopeless and feels like he is getting worse, which made him come to the hospital. Otherwise, patient denied any complaints of chest pain or short of breath. No nausea, vomiting. No cough or sputum production. Denied any recent illnesses or sick contacts. No recent travel. REVIEW OF SYSTEMS: CONSTITUTIONAL: No fever, no chills. No weakness, malaise. RESPIRATORY: No cough or sputum production. CARDIOVASCULAR: No chest pain or short of breath. ABDOMEN: No nausea, vomiting, or abdominal pain. GENITOURINARY: Negative. ENDOCRINE: Negative. PSYCHIATRIC: Depressed. Denied any suicidal ideation. All other 14-point review of systems negative, except as above. PAST MEDICAL HISTORY: COPD, chest pain/angina, history of right shoulder DVT, GERD, sciatica, pneumothorax x2 with history of surgery, emphysema, history of renal stones and hiatal hernia. PAST SURGICAL HISTORY: Cardiac catheterization, left lung biopsy, blebs removed, spontaneous pneumothorax x2 requiring chest tube, had tubes in and endoscopy. PSYCHOSOCIAL HISTORY: Anxiety and depression. SOCIAL HISTORY: Current everyday smoker. Smokes about 1 pack per day. Drinks about 1 to 2 beers per day, denied any marijuana, denied any drugs or IVDU. FAMILY HISTORY: Father had a cancer, COPD, hypertension, hyperlipidemia, and [place] and at age 67 with emphysema and mother has MS. HOME MEDICATIONS: Ibuprofen. ALLERGIES: MORPHINE. PHYSICAL EXAMINATION: A 42-year-old male, lying in bed, comfortable, awake, alert x3. Appears in no apparent distress. VITALS: Blood pressure is 118/54, pulse is 62, respirations 16, temperature afebrile, pulse ox 100% on room air. HEENT: Atraumatic, normocephalic. Neck is supple. No JVD. CVS exam is S1, S2 heard. No murmurs, no gallops. No rub. LUNGS: Bilateral air entry is present. No wheezing. No crackles. Nonlabored breathing. ABDOMEN: Soft, nontender. Bowel sounds are present. CRYPTANALYST: Awake, alert, oriented x3. No focal deficit. EXTREMITIES: No edema. Pulses palpable bilaterally. No clubbing or cyanosis. PSYCHIATRIC: Cooperative. LABORATORY DATA: WBC 7.4, hemoglobin 16.5, platelets 200, MCV 99.7, sodium 142, potassium 4.5, chloride 108, bicarb is 24, BUN 12, creatinine 1.05, liver enzyme is within normal limits. TSH 1.850 within normal limits. Albumin 4.4, UDS negative. IMPRESSION: 1. Major depressive disorder, continue with the psychiatric medical management. 2. Chronic obstructive pulmonary disease, stable at this time. Albuterol p.r.n. 3. History of right shoulder deep venous thrombosis, completed anticoagulation. No active complaint at this time. 4. Emphysema with pulmonary blebs and history of chest tube placement. No active issues at this time. 5. Recent stressful situation including job loss, homelessness and termination of relationship with his girlfriend and also patient is concerned about custody of his children. 6. Deep venous thrombosis prophylaxis. Patient is ambulating well at this time. No need for DVT prophylaxis, increase ambulation. 7. Anxiety and depression with suicidal ideation. 8. Hiatal hernia and gastroesophageal reflux disease. 9. Degenerative joint disease of the left knee. 10.History of renal stones. 11.History of spontaneous pneumothorax due to rupture of blebs. DISCUSSION AND PLAN: Patient will be continued on pain management with Tylenol. Breathing treatments in the form of albuterol as needed for short of breath. Continue with the current management and further recommendations based on the clinical course. Will continue to follow. Thank you for your consult. MMODL / IJN: [id number] /
[2017-08-06] MEDS ORDERED: IPRATROPIUM 0.5 MG/2.5 ML NEBU INHALATION PRN (15:26)
[2017-08-06] MEDS: ALBUTEROL NEBULIZED 2.5 MG/3 ML INHALATION SCH ×2 (16:16→20:25)
--- NOTE | 2017-08-06 16:57 | XR ---
EXAMINATION TYPE: XR chest 1V portable DATE OF EXAM: 08/06/2017 COMPARISON: 07/07/2017 HISTORY: Chest pain TECHNIQUE: Single frontal view of the chest is obtained. FINDINGS: Technique is somewhat apical lordotic. There is no focal air space opacity, pleural effusio n, or pneumothorax seen. The cardiac silhouette size is within normal limits. The osseous structur es are intact. IMPRESSION: No acute cardiopulmonary process, unchanged from the prior.
[2017-08-06] MEDS: MELATONIN 5 MG TABLET PO PRN (20:19)
[2017-08-06] MEDS ORDERED: IPRATROPIUM-ALBUTEROL 3 ML NEB INHALATION PRN (20:43)
[2017-08-07] MEDS: NICOTINE 14MG/24HR PATCH TRANSDERM SCH (08:23)
[2017-08-07] MEDS: ESCITALOPRAM 10 MG TAB PO SCH (08:23)
[2017-08-07] MEDS: LORazepam 1 MG TAB PO PRN (11:36)
[2017-08-07 15:34] LABS: Appearance,Urine Clear (Clear); Bilirubin,Urine Negative (Negative); Glucose,Urine (UA) Negative (Negative); Ketones,Urine Negative (Negative); Leukocyte Esterase,Urine Negative (Negative); Mucus,Urine Rare /hpf; Nitrite,Urine Negative (Negative); Particle Count 888; Protein,Urine Negative (Negative); RBC,Urine 1 /hpf (0-5); Specific Gravity,Urine 1.018 (1.001-1.035); UA Billing (MACRO vs. MICRO) MICRO; Urobilinogen,Urine <2.0 mg/dL (<2.0); WBC,Urine 3 /hpf (0-5)
--- NOTE | 2017-08-07 15:48 | P.PN ---
Progress Note - Text Interval history: The patient is found in the hallway he follows me to an interview room. It appears that he had a panic attack last evening nursing called the a team to assess him as he described having chest discomfort. No abnormal findings were discovered. He states he had a good visit from his mother and brother. He reports that they are supportive and he is less worried about losing visitation of his children. He feels that there is another job opportunity with his brother upon discharge. The patient has no questions or concerns regarding the Lexapro which we initiated. He has been using the Ativan but it is discussed that he would not be discharged on that medication. Additionally he reports that him and his ex-girlfriend have spoken and they have agreed to engage in couples counseling before deciding the relationship will not work. Mental status exam: The patient is alert he is dressed in his own clothing as yesterday he continues to wear his baseball cap. Eye contact is appropriate speech is fluent spontaneous nonpressured he reports his mood is much improved affect is euthymic. He is reporting no hopelessness thinking no suicidal ideation intent or plan no homicidal ideation. He endorses no auditory or visual hallucinationsspecific delusions there is no evidence of psychosis. He endorses no racing thoughts there is no evidence of pressured speech. There is no evidence of hypomania or greyson. Insight and judgment improving. He demonstrates no verbal or physical aggressiveness. He is oriented to person place and date. Pain: The patient will be continued on the Lexapro 10 mg daily. It appears that he is navigating his way through this most recent crisis. He is feeling more hopeful in that him and his ex-girlfriend will attend couples counseling and that he has another job opportunity with his brother. He is especially pleased that his mother has been able to watch his daughters while he is been in the hospital and he does not feel that his parenting time will be jeopardized area and we spent several minutes discussing his reaction to stressors yesterday and how he catastrophized the situation not allowing for any objective alternative thoughts. We will continue to monitor him for safety he is encouraged to continue participating in the milieu. He will likely be appropriate for discharge in the next 1-2 days.
[2017-08-07] MEDS: MELATONIN 5 MG TABLET PO PRN (20:37)
[2017-08-08 06:46] VITALS: BP 112/64; PULSE 68; RESP 18; TEMP 97.7
[2017-08-08] MEDS: NICOTINE 14MG/24HR PATCH TRANSDERM SCH (08:34)
[2017-08-08] MEDS: ESCITALOPRAM 10 MG TAB PO SCH (08:34)
[2017-08-08] MEDS: LORazepam 1 MG TAB PO PRN ×2 (08:35→14:44)
[2017-08-08] MEDS ORDERED: traZODone HCL 50 MG TAB PO SCH (21:00)
== END 2017-08-08 15:55 | disposition home or self-care (01) | DRG 885 ==
LOC: EC 23:17 → 3MHU 08-06 04:04
PROVIDERS: ADMIT Psychiatry & Neurology Psychiatry; ATTEND Psychiatry & Neurology Psychiatry
DX: F33.2 Major depressive disorder, recurrent severe without psychotic features (principal); R45.851 Suicidal ideations; J44.9 Chronic obstructive pulmonary disease, unspecified; F41.0 Panic disorder [episodic paroxysmal anxiety]; F12.90 Cannabis use, unspecified, uncomplicated; F41.1 Generalized anxiety disorder; I73.00 Raynaud's syndrome without gangrene; K21.9 Gastro-esophageal reflux disease without esophagitis; K44.9 Diaphragmatic hernia without obstruction or gangrene; M17.12 Unilateral primary osteoarthritis, left knee; F10.10 Alcohol abuse, uncomplicated; F17.200 Nicotine dependence, unspecified, uncomplicated; Z59.0 Homelessness; Z88.5 Allergy status to narcotic agent; Z82.49 Family history of ischemic heart disease and other diseases of the circulatory system
CPT/HCPCS: 71010; 80053; 80306; 81001; 82075; 84443; 84484; 85025; 93005; 99285

== ENCOUNTER 2017-08-29 11:30 | Emergency (ER) | payer OTHER ==
--- NOTE | 2017-08-29 13:08 | ED ---
General Adult HPI - General Chief complaint: Recheck/Abnormal Lab/Rx Stated complaint: bulging neck vein Time Seen by Provider: 08/29/17 12:50 Source: patient, RN notes reviewed Mode of arrival: ambulatory Limitations: no limitations - History of Present Illness Initial comments: Patient 42-year-old male who presents emergency room today with chief complaint of bulging neck pain on the right side that he saw this morning. Patient mitts that is had a blood clot in the right shoulder area in the past. He states he was on blood thinners of Coumadin. States is no longer on this medication. Patient does admit that over the last few days she's been experiencing some pain to the right side of the neck. He denies any injury or trauma. He states that this morning his did see that this area seems to be bulging out and she was able to picture of it. He says it is locally tender. He denies any other complaints or symptoms. Patient denies any recent fever, chills, shortness of breath, chest pain, back pain, abdominal pain, nausea or vomiting, numbness or tingling, dysuria or hematuria, constipation or diarrhea, headaches or visual changes, or any other complaints. - Related Data Home Medications Medication Instructions Recorded Confirmed traZODone HCL [Desyrel] 50 mg PO HS PRN 08/29/17 08/29/17 Previous Rx's Medication Instructions Recorded Escitalopram [Lexapro] 10 mg PO DAILY #14 tab 08/08/17 traZODone HCL [Desyrel] 50 mg PO HS #7 tab 08/29/17 Allergies Allergy/AdvReac Type Severity Reaction Status Date / Time morphine AdvReac Unknown Hallucinati Verified 08/29/17 12:06 ons Review of Systems ROS Statement: Those systems with pertinent positive or pertinent negative responses have been documented in the HPI. ROS Other: All systems not noted in ROS Statement are negative. Past Medical History Past Medical History: Chest Pain / Angina, COPD, Deep Vein Thrombosis (DVT), GERD/Reflux Additional Past Medical History / Comment(s): sciatica , pneumothorax x2, emphysema,DJD,KIDNEY STONES,HIATAL HERNIA, History of Any Multi-Drug Resistant Organisms: None Reported Past Surgical History: Heart Catheterization Additional Past Surgical History / Comment(s): left lung biopsy, BLEBS REMOVED, spontaneous pneumo X2 requitring c/t. HAD TUBES IN EAR CHILD, ENDOSCOPY Past Anesthesia/Blood Transfusion Reactions: No Reported Reaction Past Psychological History: Anxiety, Depression Smoking Status: Current every day smoker - Past Family History Father Family Medical History: Cancer, COPD, Hyperlipidemia, Hypertension, Myocardial Infarction ([place]), Renal Disease Additional Family Medical History / Comment(s): DAD AT AGE 67- EMPHYSEMA, VALVE REPLACEMENT 1983, of carcinoma "CUPS" Mother Additional Family Medical History / Comment(s): MOM IS 70 HAS MS General Exam - General Exam Comments Initial Comments: General: The patient is awake and alert, in no distress, and does not appear acutely ill. Eye: Pupils are equal, round and reactive to light, extra-ocular movements are intact. No nystagmus. There is normal conjunctiva bilaterally. No signs of icterus. Ears, nose, mouth and throat: There are moist mucous membranes and no oral lesions. Neck: The neck is supple, there is no tenderness or JVD. No bruit. Cardiovascular: There is a regular rate and rhythm. No murmur, rub or gallop is appreciated. Respiratory: Lungs are clear to auscultation, respirations are non-labored, breath sounds are equal. No wheezes, stridor, rales, or rhonchi. Gastrointestinal: Soft, non-distended, non-tender abdomen without masses or organomegaly noted. There is no rebound or guarding present. No CVA tenderness. Bowel sounds are unremarkable. Musculoskeletal: Normal ROM. Tender palpation on the right anterior side of the neck. There is no swelling or bruising. Strength 5/5. Sensation intact. Pulses equal bilaterally 2+. Neurological: A&O x 3. CN II-XII intact, There are no obvious motor or sensory deficits. Coordination appears grossly intact. Speech is normal. Skin: Skin is warm and dry and no rashes or lesions are noted. Psychiatric: Cooperative, appropriate mood & affect, normal judgment. Limitations: no limitations Course Vital Signs 08/29/17 11:51 Temperature 98.1 F Pulse Rate 65 Respiratory 17 Rate Blood Pressure 116/7 O2 Sat by Pulse 98 Oximetry Medical Decision Making - Medical Decision Making Patient reexamined at this time shows no signs of distress. Resting comfortably. Patient's d-dimer negative. Patient did have a superficial area of swelling this morning that was seen by his at bedside. At this time there is no sign of swelling. There is no redness. Patient essentially asymptomatic here the emergency room. He doesn't that he's had some headaches and pain locally to the area. Was discussed with attending physician Dr. Padilla. Patient labs are been reviewed. Chest x-rays negative. Doesn't that he 's had some cough congestion. He was also started on Lexapro recently. Small headache. It was discussed with Lexapro may be causing his headaches. Doesn't that he also takes trazodone which only 1 tablet at home or if he get a med refill. We'll give him a few days' worth. Patient will be discharged home advised to follow-up with family doctor over the next 2 days. - Lab Data Result diagrams: 08/29/17 13:20 08/29/17 13:20 Lab Results 08/29/17 08/29/17 08/29/17 Range/Units 13:20 13:20 13:20 WBC 8.0 (3.8-10.6) k/uL RBC 4.89 (4.30-5.90) m/uL Hgb 16.6 (13.0-17.5) gm/dL Hct 49.2 (39.0-53.0) % MCV 100.6 H (80.0-100.0) fL MCH 33.9 (25.0-35.0) pg MCHC 33.7 (31.0-37.0) g/dL RDW 13.3 (11.5-15.5) % Plt Count 224 (150-450) k/uL Neutrophils % 59 % Lymphocytes % 29 % Monocytes % 7 % Eosinophils % 3 % Basophils % 1 % Neutrophils # 4.7 (1.3-7.7) k/uL Lymphocytes # 2.3 (1.0-4.8) k/uL Monocytes # 0.5 (0-1.0) k/uL Eosinophils # 0.2 (0-0.7) k/uL Basophils # 0.1 (0-0.2) k/uL PT 11.5 (9.0-12.0) sec INR 1.1 (<1.2) APTT 25.0 (22.0-30.0) sec D-Dimer 0.25 (<0.60) mg/L FEU Sodium 141 (137-145) mmol/L Potassium 4.1 (3.5-5.1) mmol/L Chloride 107 (98-107) mmol/L Carbon Dioxide 24 (22-30) mmol/L Anion Gap 10 mmol/L BUN 11 (9-20) mg/dL Creatinine 0.80 (0.66-1.25) mg/dL Est GFR (MDRD) Af Amer >60 (>60 ml/min/1.73 sqM) Est GFR (MDRD) Non-Af >60 (>60 ml/min/1.73 sqM) Glucose 101 H (74-99) mg/dL Calcium 9.6 (8.4-10.2) mg/dL Total Bilirubin 0.5 (0.2-1.3) mg/dL AST 18 (17-59) U/L ALT 29 (21-72) U/L Alkaline Phosphatase 75 (38-126) U/L NT-Pro-B Natriuret Pep pg/mL Total Protein 6.9 (6.3-8.2) g/dL Albumin 4.1 (3.5-5.0) g/dL 08/29/17 Range/Units 13:20 WBC (3.8-10.6) k/uL RBC (4.30-5.90) m/uL Hgb (13.0-17.5) gm/dL Hct (39.0-53.0) % MCV (80.0-100.0) fL MCH (25.0-35.0) pg MCHC (31.0-37.0) g/dL RDW (11.5-15.5) % Plt Count (150-450) k/uL Neutrophils % % Lymphocytes % % Monocytes % % Eosinophils % % Basophils % % Neutrophils # (1.3-7.7) k/uL Lymphocytes # (1.0-4.8) k/uL Monocytes # (0-1.0) k/uL Eosinophils # (0-0.7) k/uL Basophils # (0-0.2) k/uL PT (9.0-12.0) sec INR (<1.2) APTT (22.0-30.0) sec D-Dimer (<0.60) mg/L FEU Sodium (137-145) mmol/L Potassium (3.5-5.1) mmol/L Chloride (98-107) mmol/L Carbon Dioxide (22-30) mmol/L Anion Gap mmol/L BUN (9-20) mg/dL Creatinine (0.66-1.25) mg/dL Est GFR (MDRD) Af Amer (>60 ml/min/1.73 sqM) Est GFR (MDRD) Non-Af (>60 ml/min/1.73 sqM) Glucose (74-99) mg/dL Calcium (8.4-10.2) mg/dL Total Bilirubin (0.2-1.3) mg/dL AST (17-59) U/L ALT (21-72) U/L Alkaline Phosphatase (38-126) U/L NT-Pro-B Natriuret Pep 33 pg/mL Total Protein (6.3-8.2) g/dL Albumin (3.5-5.0) g/dL Disposition Clinical Impression: Headache Disposition: HOME SELF-CARE Condition: Good Instructions: Acute Headache (ED) Additional Instructions: Please follow-up the Doctor and discussed about the Lexapro as possible cause for the headaches. Please follow-up the family doctor as discussed. Please return here to the emergency room for any other concerns. Prescriptions: traZODone HCL [Desyrel] 50 mg PO HS #7 tab Referrals: Graciela Alexander MD [Primary Care Provider] - 1-2 days Debra Singh MD [STAFF PHYSICIAN] - 1-2 days Time of Disposition: 14:20
[2017-08-29 13:35] LABS: Basophils # (A) 0.1 k/uL (0-0.2); Basophils % (A) 1 %; CH 33.1; CHCM 33.1; Eosinophils # (A) 0.2 k/uL (0-0.7); Eosinophils % (A) 3 %; HCT 49.2 % (39.0-53.0); HDW 2.29; HGB 16.6 gm/dL (13.0-17.5); Luc # (Auto) 0.11; Luc % (Auto) 1; Lymphocytes # (A) 2.3 k/uL (1.0-4.8); Lymphocytes % (A) 29 %; MCH 33.9 pg (25.0-35.0); MCHC 33.7 g/dL (31.0-37.0); MCV 100.6 fL (80.0-100.0); Mean Platelet Volume 8.2; Monocytes # (A) 0.5 k/uL (0-1.0); Monocytes % (A) 7 %; Neutrophils # (A) 4.7 k/uL (1.3-7.7); Neutrophils % (A) 59 %; RBC 4.89 m/uL (4.30-5.90); RDW 13.3 % (11.5-15.5); WBC (Perox) 7.31
[2017-08-29 13:48] LABS: ALT 29 U/L (21-72); AST 18 U/L (17-59); Alkaline Phosphatase 75 U/L (38-126); Anion Gap 10 mmol/L; Blood Urea Nitrogen 11 mg/dL (9-20); Calcium 9.6 mg/dL (8.4-10.2); Carbon Dioxide 24 mmol/L (22-30); Chloride 107 mmol/L (98-107); Glucose 101 mg/dL (74-99); Non-African American GFR(MDRD) >60 (>60 ml/min/1.73 sqM); Potassium 4.1 mmol/L (3.5-5.1); Sodium 141 mmol/L (137-145); Total Bilirubin 0.5 mg/dL (0.2-1.3); Total Protein 6.9 g/dL (6.3-8.2)
--- NOTE | 2017-08-29 13:48 | XR ---
EXAMINATION TYPE: XR chest 2V DATE OF EXAM: 08/29/2017 COMPARISON: 08/06/2017 TECHNIQUE: PA and lateral views submitted. HISTORY: Cough FINDINGS: The lungs are clear and there is no pneumothorax, pleural effusion, or focal pneumonia. Biapical pl eural thickening. Hyperinflation noted. Surgical clips in the epigastrium. No overt failure. IMPRESSION: 1. No acute process.
[2017-08-29 13:49] LABS: INR 1.1 (<1.2); Prothrombin Time 11.5 sec (9.0-12.0)
[2017-08-29] MEDS ORDERED: KETOROLAC 30 MG/ML 1 ML VIAL IVP STA (14:20)
[2017-08-29 14:28] VITALS: BP 114/59; PULSE 66; RESP 18
[2017-08-29 14:51] VITALS: TEMP 97.9
== END 2017-08-29 14:51 | disposition home or self-care (01) ==
LOC: EC 11:30
DX: R51 Headache (principal); R05 Cough; R09.89 Other specified symptoms and signs involving the circulatory and respiratory systems; F17.200 Nicotine dependence, unspecified, uncomplicated; Z88.5 Allergy status to narcotic agent
CPT/HCPCS: 99283 ×2; 96374 ×2; 36415; 85379; 83880; 80053; 85025; 85610; 85730; 71020; J1885

== ENCOUNTER 2017-11-19 11:34 | Emergency (ER) | payer OTHER ==
[2017-11-19] MEDS ORDERED: RX INFO: IV CONTRAST WAS GIVEN 1 EACH MISC MISCELLANE PRN (12:06)
--- NOTE | 2017-11-19 12:06 | ED ---
General Adult HPI - General Chief complaint: Chest Pain Stated complaint: Chest pain/Jaw pain Time Seen by Provider: 11/19/17 11:46 Source: patient, RN notes reviewed, old records reviewed Mode of arrival: ambulatory Limitations: no limitations - History of Present Illness Initial comments: This is a 42-year-old male to the ER for evaluation. Patient is ER for evaluation of chest pain severe chest pain anterior chest pain. Mild nausea no vomiting no fevers, increased cough or congestion, patient does smoke. Patient has history of chest pain, stress test 6 months ago and recent cardiac admission as well. Patient's pain feels just like prior - Related Data Home Medications Medication Instructions Recorded Confirmed Melatonin 10 mg PO HS PRN 11/19/17 11/19/17 Allergies Allergy/AdvReac Type Severity Reaction Status Date / Time morphine AdvReac Unknown Hallucinati Verified 11/19/17 12:38 ons Review of Systems ROS Statement: Those systems with pertinent positive or pertinent negative responses have been documented in the HPI. ROS Other: All systems not noted in ROS Statement are negative. Past Medical History Past Medical History: Chest Pain / Angina, COPD, Deep Vein Thrombosis (DVT), GERD/Reflux Additional Past Medical History / Comment(s): sciatica , pneumothorax x2, emphysema,DJD,KIDNEY STONES,HIATAL HERNIA, History of Any Multi-Drug Resistant Organisms: None Reported Past Surgical History: Heart Catheterization Additional Past Surgical History / Comment(s): left lung biopsy, BLEBS REMOVED, spontaneous pneumo X2 requitring c/t. HAD TUBES IN EAR CHILD, ENDOSCOPY Past Anesthesia/Blood Transfusion Reactions: No Reported Reaction Past Psychological History: Anxiety, Depression Smoking Status: Current every day smoker Past Alcohol Use History: None Reported Past Drug Use History: None Reported - Past Family History Father Family Medical History: Cancer, COPD, Hyperlipidemia, Hypertension, Myocardial Infarction ([place]), Renal Disease Additional Family Medical History / Comment(s): DAD AT AGE 67- EMPHYSEMA, VALVE REPLACEMENT 1983, of carcinoma "CUPS" Mother Additional Family Medical History / Comment(s): MOM IS 70 HAS MS General Exam Limitations: no limitations General appearance: alert, in no apparent distress Head exam: Present: atraumatic, normocephalic, normal inspection Eye exam: Present: normal appearance, PERRL, EOMI. Absent: scleral icterus, conjunctival injection, periorbital swelling ENT exam: Present: normal exam, mucous membranes moist Neck exam: Present: normal inspection. Absent: tenderness, meningismus, lymphadenopathy Respiratory exam: Present: normal lung sounds bilaterally. Absent: respiratory distress, wheezes, rales, rhonchi, stridor Cardiovascular Exam: Present: regular rate, normal rhythm, normal heart sounds. Absent: systolic murmur, diastolic murmur, rubs, gallop, clicks GI/Abdominal exam: Present: soft, normal bowel sounds. Absent: distended, tenderness, guarding, rebound, rigid Extremities exam: Present: normal inspection, full ROM, normal capillary refill. Absent: tenderness, pedal edema, joint swelling, calf tenderness Back exam: Present: normal inspection Neurological exam: Present: alert, oriented X3, CN II-XII intact Psychiatric exam: Present: normal affect, normal mood Skin exam: Present: warm, dry, intact, normal color. Absent: rash Course Vital Signs 11/19/17 11/19/17 11:39 12:40 Temperature 97.8 F Pulse Rate 80 67 Respiratory 20 20 Rate Blood Pressure 133/81 128/79 O2 Sat by Pulse 99 98 Oximetry - Reevaluation(s) Reevaluation #1: 11/19/17 13:06 Patient continued asked for pain medication Reevaluation #2: 11/19/17 13:06 Patient's symptoms are improved is in no distress EKG Findings - EKG Comments: EKG Findings:: EKG shows normal sinus rhythm rate of 74, [place] 126 QRS 88, QTc 41 Medical Decision Making - Medical Decision Making 40 formality ER for evaluation of chest pain, CT chest negative, troponin negative EKG and negative. Patient can be discharged home - Lab Data Result diagrams: 11/19/17 12:00 11/19/17 12:00 Lab Results 11/19/17 11/19/17 11/19/17 Range/Units 12:00 12:00 12:00 WBC 7.8 (3.8-10.6) k/uL RBC 5.17 (4.30-5.90) m/uL Hgb 16.7 (13.0-17.5) gm/dL Hct 51.0 (39.0-53.0) % MCV 98.7 (80.0-100.0) fL MCH 32.4 (25.0-35.0) pg MCHC 32.8 (31.0-37.0) g/dL RDW 12.7 (11.5-15.5) % Plt Count 225 (150-450) k/uL Neutrophils % 53 % Lymphocytes % 31 % Monocytes % 10 % Eosinophils % 2 % Basophils % 1 % Neutrophils # 4.1 (1.3-7.7) k/uL Lymphocytes # 2.4 (1.0-4.8) k/uL Monocytes # 0.8 (0-1.0) k/uL Eosinophils # 0.2 (0-0.7) k/uL Basophils # 0.1 (0-0.2) k/uL PT (9.0-12.0) sec INR (<1.2) APTT (22.0-30.0) sec D-Dimer (<0.60) mg/L FEU Sodium 138 (137-145) mmol/L Potassium 4.9 (3.5-5.1) mmol/L Chloride 103 (98-107) mmol/L Carbon Dioxide 26 (22-30) mmol/L Anion Gap 9 mmol/L BUN 19 (9-20) mg/dL Creatinine 1.14 (0.66-1.25) mg/dL Est GFR (MDRD) Af Amer >60 (>60 ml/min/1.73 sqM) Est GFR (MDRD) Non-Af >60 (>60 ml/min/1.73 sqM) Glucose 95 (74-99) mg/dL Calcium 10.3 H (8.4-10.2) mg/dL Magnesium 2.0 (1.6-2.3) mg/dL Total Bilirubin 0.6 (0.2-1.3) mg/dL AST 23 (17-59) U/L ALT 26 (21-72) U/L Alkaline Phosphatase 61 (38-126) U/L Total Creatine Kinase 123 (55-170) U/L CK-MB (CK-2) 0.8 (0.0-2.4) ng/mL CK-MB (CK-2) Rel Index 0.7 Troponin I <0.012 (0.000-0.034) ng/mL Total Protein 7.4 (6.3-8.2) g/dL Albumin 4.4 (3.5-5.0) g/dL Lipase 57 (23-300) U/L 11/19/17 Range/Units 12:00 WBC (3.8-10.6) k/uL RBC (4.30-5.90) m/uL Hgb (13.0-17.5) gm/dL Hct (39.0-53.0) % MCV (80.0-100.0) fL MCH (25.0-35.0) pg MCHC (31.0-37.0) g/dL RDW (11.5-15.5) % Plt Count (150-450) k/uL Neutrophils % % Lymphocytes % % Monocytes % % Eosinophils % % Basophils % % Neutrophils # (1.3-7.7) k/uL Lymphocytes # (1.0-4.8) k/uL Monocytes # (0-1.0) k/uL Eosinophils # (0-0.7) k/uL Basophils # (0-0.2) k/uL PT 11.0 (9.0-12.0) sec INR 1.1 (<1.2) APTT 24.6 (22.0-30.0) sec D-Dimer 0.41 (<0.60) mg/L FEU Sodium (137-145) mmol/L Potassium (3.5-5.1) mmol/L Chloride (98-107) mmol/L Carbon Dioxide (22-30) mmol/L Anion Gap mmol/L BUN (9-20) mg/dL Creatinine (0.66-1.25) mg/dL Est GFR (MDRD) Af Amer (>60 ml/min/1.73 sqM) Est GFR (MDRD) Non-Af (>60 ml/min/1.73 sqM) Glucose (74-99) mg/dL Calcium (8.4-10.2) mg/dL Magnesium (1.6-2.3) mg/dL Total Bilirubin (0.2-1.3) mg/dL AST (17-59) U/L ALT (21-72) U/L Alkaline Phosphatase (38-126) U/L Total Creatine Kinase (55-170) U/L CK-MB (CK-2) (0.0-2.4) ng/mL CK-MB (CK-2) Rel Index Troponin I (0.000-0.034) ng/mL Total Protein (6.3-8.2) g/dL Albumin (3.5-5.0) g/dL Lipase (23-300) U/L - Radiology Data Radiology results: report reviewed (CTA chest is negative), image reviewed Disposition Clinical Impression: Chest pain Disposition: HOME SELF-CARE Condition: Good Instructions: Chest Pain (ED) Referrals: None,Stated [Primary Care Provider] - 1-2 days
[2017-11-19 12:12] LABS: Basophils # (A) 0.1 k/uL (0-0.2); Basophils % (A) 1 %; Eosinophils # (A) 0.2 k/uL (0-0.7); Eosinophils % (A) 2 %; HGB 16.7 gm/dL (13.0-17.5); Lymphocytes # (A) 2.4 k/uL (1.0-4.8); Lymphocytes % (A) 31 %; MCH 32.4 pg (25.0-35.0); MCHC 32.8 g/dL (31.0-37.0); MCV 98.7 fL (80.0-100.0); Monocytes # (A) 0.8 k/uL (0-1.0); Monocytes % (A) 10 %; Neutrophils # (A) 4.1 k/uL (1.3-7.7); Neutrophils % (A) 53 %; Platelet Count 225 k/uL (150-450); RBC 5.17 m/uL (4.30-5.90); RDW 12.7 % (11.5-15.5); WBC 7.8 k/uL (3.8-10.6)
[2017-11-19 12:24] LABS: Albumin 4.4 g/dL (3.5-5.0); Anion Gap 9 mmol/L; Calcium 10.3 mg/dL (8.4-10.2); Carbon Dioxide 26 mmol/L (22-30); Chloride 103 mmol/L (98-107); D-Dimer 0.41 mg/L FEU (<0.60); Glucose 95 mg/dL (74-99); Lipase 57 U/L (23-300); Sodium 138 mmol/L (137-145); Total Bilirubin 0.6 mg/dL (0.2-1.3); Total Protein 7.4 g/dL (6.3-8.2)
[2017-11-19 12:28] LABS: ALT 26 U/L (21-72); AST 23 U/L (17-59); Alkaline Phosphatase 61 U/L (38-126); Blood Urea Nitrogen 19 mg/dL (9-20); INR 1.1 (<1.2); Partial Thromboplastin Time 24.6 sec (22.0-30.0); Potassium 4.9 mmol/L (3.5-5.1)
[2017-11-19 12:32] LABS: Creatine Kinase 123 U/L (55-170)
[2017-11-19] MEDS: MORPHINE SULFATE 5 MG/ML SYRINGE IVP STA ×2 (12:33→12:37)
[2017-11-19] MEDS ORDERED: HYDROmorphone 1 MG/ML 1 ML SYRINGE IVP STA (12:37)
[2017-11-19 12:45] LABS: Creatine Kinase MB 0.8 ng/mL (0.0-2.4); Troponin I <0.012 ng/mL (0.000-0.034)
--- NOTE | 2017-11-19 12:45 | CT ---
EXAMINATION TYPE: CT angio chest DATE OF EXAM: 11/19/2017 12:36 PM COMPARISON: 07/07/2017 HISTORY: Chest pain CT DLP: 213.3 mGycm Automated exposure control for dose reduction was used. CONTRAST: CTA scan of the thorax is performed with IV Contrast, patient injected with 75 mL of Omnipaque 350, p ulmonary embolism protocol. There are 3-D post processed images.. FINDINGS: The lungs are clear of consolidation. There is no evidence of a pulmonary mass. There is no pleural e ffusion. Heart size is normal. There is no pericardial effusion. I see no filling defects in the pulm onary arteries. There is no mediastinal adenopathy. The bony thorax is intact. IMPRESSION: NO EVIDENCE OF PULMONARY EMBOLISM. NO ADVERSE CHANGE COMPARED TO OLD EXAM.
[2017-11-19 13:15] VITALS: BP 121/87; PULSE 74; RESP 18; TEMP 98.7
== END 2017-11-19 13:15 | disposition home or self-care (01) ==
LOC: EC 11:34
DX: R07.89 Other chest pain (principal); R11.0 Nausea; F17.200 Nicotine dependence, unspecified, uncomplicated; Z53.29 Procedure and treatment not carried out because of patient's decision for other reasons
CPT/HCPCS: 36415; 85379; 80053; 82550; 82553; 83690; 83735; 84484; 85025; 85610; 85730; 71275; 99285; 96374; Q9967; J1170; 93005

== ENCOUNTER 2018-04-18 23:53 | Observation (INO) | payer OTHER ==
[2018-04-19] MEDS ORDERED: SODIUM CHLORIDE 0.9% 1,000 ML IV STA ×2 (00:21)
[2018-04-19] MEDS ORDERED: NITROGLYCERIN SL TABS 0.4 MG TAB SUBLINGUAL STA ×2 (00:21→00:25)
[2018-04-19 00:52] LABS: Basophils # (A) 0.1 k/uL (0-0.2); Basophils % (A) 1 %; Eosinophils # (A) 0.2 k/uL (0-0.7); Eosinophils % (A) 3 %; HCT 47.9 % (39.0-53.0); HGB 15.9 gm/dL (13.0-17.5); Lymphocytes # (A) 3.3 k/uL (1.0-4.8); Lymphocytes % (A) 39 %; MCH 32.5 pg (25.0-35.0); MCHC 33.2 g/dL (31.0-37.0); MCV 97.7 fL (80.0-100.0); Mean Platelet Volume 8.8; Monocytes # (A) 0.6 k/uL (0-1.0); Monocytes % (A) 8 %; Neutrophils # (A) 4.1 k/uL (1.3-7.7); Neutrophils % (A) 48 %; Platelet Count 200 k/uL (150-450); RDW 13.3 % (11.5-15.5); WBC 8.5 k/uL (3.8-10.6)
--- NOTE | 2018-04-19 00:59 | ED ---
Chest Pain HPI - General Chief Complaint: Chest Pain Stated Complaint: chest/shoulder pain Time Seen by Provider: 04/19/18 00:13 Source: patient, RN notes reviewed, old records reviewed Mode of arrival: ambulatory Limitations: no limitations - History of Present Illness Initial Comments: Patient is a 42-year-old male with a history of right upper extremity DVT presents with right shoulder pain and chest pain. Patient's chest pain started 1 hour prior to arrival. He states that he is somewhat short of breath as well. Patient states that he has had no fever or chills. Denies any coughing. He denies any abdominal pain. Has had a history of diarrhea. Patient states he also has been complaining of bilateral feet pain. Patient denies any recent fever, chills, back pain, abdominal pain, nausea vomiting, numbness or tingling , dysuria or hematuria, constipation or diarrhea, headaches or visual changes, or any other current symptoms - Related Data Home Medications Medication Instructions Recorded Confirmed No Known Home Medications [No 04/18/18 04/18/18 Known Home Medications] Allergies Allergy/AdvReac Type Severity Reaction Status Date / Time morphine AdvReac Unknown Hallucinati Verified 04/18/18 23:57 ons Review of Systems ROS Statement: Those systems with pertinent positive or pertinent negative responses have been documented in the HPI. ROS Other: All systems not noted in ROS Statement are negative. EKG Findings - EKG Comments: EKG Findings:: EKG performed at 339 shows normal sinus abnormal EKG. Ventricular rate 66. Pulse 144. QRS duration 90 ms. QT QTC 392/410 ms. Past Medical History Past Medical History: Chest Pain / Angina, COPD, Deep Vein Thrombosis (DVT), GERD/Reflux, Pulmonary Embolus ([place]) Additional Past Medical History / Comment(s): sciatica , pneumothorax x2, emphysema,DJD,KIDNEY STONES,HIATAL HERNIA, History of Any Multi-Drug Resistant Organisms: None Reported Past Surgical History: Heart Catheterization Additional Past Surgical History / Comment(s): left lung biopsy, BLEBS REMOVED, spontaneous pneumo X2 requitring c/t. HAD TUBES IN EAR CHILD, ENDOSCOPY Past Anesthesia/Blood Transfusion Reactions: No Reported Reaction Past Psychological History: Anxiety, Depression Smoking Status: Current every day smoker Past Alcohol Use History: Occasional Past Drug Use History: Marijuana - Past Family History Father Family Medical History: Cancer, COPD, Hyperlipidemia, Hypertension, Myocardial Infarction ([place]), Renal Disease Additional Family Medical History / Comment(s): DAD AT AGE 67- EMPHYSEMA, VALVE REPLACEMENT 1983, of carcinoma "CUPS" Mother Additional Family Medical History / Comment(s): MOM IS 70 HAS MS General Exam - General Exam Comments Initial Comments: This patient's a 42-year-old female. Alert and oriented. No acute distress. Limitations: no limitations General appearance: alert, in no apparent distress Head exam: Present: atraumatic, normocephalic, normal inspection Eye exam: Present: normal appearance, PERRL, EOMI. Absent: scleral icterus, conjunctival injection, periorbital swelling ENT exam: Present: normal exam, mucous membranes moist Neck exam: Present: normal inspection. Absent: tenderness, meningismus, lymphadenopathy Respiratory exam: Present: normal lung sounds bilaterally. Absent: respiratory distress, wheezes, rales, rhonchi, stridor Cardiovascular Exam: Present: regular rate, normal rhythm, normal heart sounds. Absent: systolic murmur, diastolic murmur, rubs, gallop, clicks GI/Abdominal exam: Present: soft, normal bowel sounds. Absent: distended, tenderness, guarding, rebound, rigid Extremities exam: Present: normal inspection, full ROM, normal capillary refill , other (Patient does have enlarged veins over the right upper arm in the shoulder.). Absent: tenderness, pedal edema, joint swelling, calf tenderness Back exam: Present: normal inspection Neurological exam: Present: alert, oriented X3, CN II-XII intact Psychiatric exam: Present: normal affect, normal mood Skin exam: Present: warm, dry, intact, normal color. Absent: rash Course Vital Signs 04/18/18 04/19/18 04/19/18 23:55 00:52 01:30 Temperature 98.2 F Pulse Rate 77 74 78 Respiratory 18 20 20 Rate Blood Pressure 147/77 112/56 113/57 O2 Sat by Pulse 98 95 Oximetry 04/19/18 03:24 Temperature 97.7 F Pulse Rate 70 Respiratory 16 Rate Blood Pressure 116/66 O2 Sat by Pulse 97 Oximetry - Reevaluation(s) Reevaluation #1: 04/19/18 03:43 Patient was reevaluated complaint chest pain. EKG was performed. Normal sinus rhythm, normal EKG noted. No evidence of ST changes. Chest Pain MDM - MDM 42-year-old male presents emergency Department chief complaint of onset of chest pain one hour prior to arrival. He reports that he had some pain within his right shoulder as well. A history of right upper extremity DVT. Ultrasound completed this time and is negative for DVT. Chest x-ray was reviewed and within normal limits. All his lab work was reviewed and normal. Normal d-dimer. Normal troponin. Patient continues to complain of chest pain. It was not relieved with nitro. Patient's pain seems to be more on the right side of the chest. Does have a cardiac history. At this time with onset of chest pain on a 1 hour prior to arriva I would like to admit The Patient for observation for repeat cardiac enzymes. Evaluation by cardiology as well. Patient understands treatment plan. Patient agrees to admission. Disposition Clinical Impression: Chest pain, Unstable angina Disposition: ADMITTED IP TO THIS HOSP Condition: Stable Is patient prescribed a controlled substance at d/c from ED?: No When asked, does pt state using other controlled substances?: No If prescribed controlled substance>3 days was MAPS reviewed?: No If opioid is for acute pain is fill amount 7 days or less?: No If Rx opioid, was Start Talking consent form obtained?: No Referrals: None,Stated [Primary Care Provider] - 1-2 days Time of Disposition: 03:45
[2018-04-19 01:12] LABS: D-Dimer 0.25 mg/L FEU (<0.60); INR 1.1 (<1.2); Prothrombin Time 10.9 sec (9.0-12.0)
[2018-04-19 01:13] LABS: Partial Thromboplastin Time 24.8 sec (22.0-30.0)
[2018-04-19 01:14] LABS: ALT 23 U/L (21-72); AST 21 U/L (17-59); Albumin 4.2 g/dL (3.5-5.0); Alkaline Phosphatase 61 U/L (38-126); Anion Gap 12 mmol/L; Blood Urea Nitrogen 16 mg/dL (9-20); Calcium 9.6 mg/dL (8.4-10.2); Carbon Dioxide 25 mmol/L (22-30); Chloride 107 mmol/L (98-107); Glucose 85 mg/dL (74-99); Potassium 4.2 mmol/L (3.5-5.1); Sodium 144 mmol/L (137-145); Total Bilirubin 0.3 mg/dL (0.2-1.3); Total Protein 6.7 g/dL (6.3-8.2)
--- NOTE | 2018-04-19 01:30 | US ---
EXAMINATION TYPE: US venous doppler duplex UE RT DATE OF EXAM: 04/19/2018 COMPARISON: NONE CLINICAL HISTORY: Pain. Right side pain SIDE PERFORMED: Right Right Arm: Negative for DVT No evidence of DVT right arm. IMPRESSION: Normal right arm duplex venous sonogram.
--- NOTE | 2018-04-19 01:53 | XR ---
EXAMINATION TYPE: XR chest 2V DATE OF EXAM: 04/19/2018 COMPARISON: 08/29/2017 HISTORY: Chest pain TECHNIQUE: Frontal and lateral views of the chest are obtained. FINDINGS: Heart and mediastinum are normal. Lungs are clear. Diaphragm is normal. Bony thorax is int act. IMPRESSION: Normal chest. No change.
[2018-04-19 01:57] LABS: Creatine Kinase 206 U/L (55-170)
[2018-04-19 02:09] LABS: Troponin I <0.012 ng/mL (0.000-0.034)
[2018-04-19] MEDS ORDERED: IBUPROFEN 400 MG TAB PO PRN (03:45)
[2018-04-19] MEDS ORDERED: NALOXONE 0.4 MG/ML 1 ML VIAL IV PRN (03:45)
[2018-04-19] MEDS ORDERED: ACETAMINOPHEN TAB 325 MG TAB PO PRN (03:45)
[2018-04-19] MEDS ORDERED: ONDANSETRON 4 MG/2 ML VIAL IVP PRN (03:45)
[2018-04-19] MEDS ORDERED: MORPHINE SULFATE 4 MG/ML SYRINGE IV PRN (03:45)
[2018-04-19] MEDS: KETOROLAC 30 MG/ML 1 ML VIAL IVP PRN ×3 (04:01→14:40)
[2018-04-19] MEDS: SODIUM CHLORIDE 0.9% 1,000 ML IV SCH (04:07)
[2018-04-19] MEDS ORDERED: ASPIRIN 81 MG PO STA (04:26)
[2018-04-19] MEDS ORDERED: KETOROLAC 30 MG/ML 1 ML VIAL IVP STA (04:38)
[2018-04-19 04:48] VITALS: BMI 24.3
[2018-04-19 07:47] LABS: Creatine Kinase 170 U/L (55-170)
[2018-04-19 08:00] LABS: Creatine Kinase MB 0.9 ng/mL (0.0-2.4); Troponin I <0.012 ng/mL (0.000-0.034)
[2018-04-19] MEDS ORDERED: PANTOPRAZOLE 40 MG/10 ML VIAL IV SCH (09:00)
[2018-04-19] MEDS ORDERED: DOBUTamine DRIP for NUC MED 500 MG in DEXTROSE/WATER 1 250ML.BAG IV ONE (09:02)
--- NOTE | 2018-04-19 09:22 | CONS ---
CONSULTATION Mr. Huston is a 42-year-old male with a known history of chronic tobacco use who presented with symptoms of right shoulder discomfort. He presented with the symptoms that started yesterday. The discomfort was not exertional in pattern and has persisted. He has some worsening in certain position. The patient had an episode of dizziness and according to him syncope a few days ago after working outside. He has been seen by Dr. Bhandari in the past, but not recently. He has underwent a cardiac catheterization performed in 2012 and at that time, there was no evidence of obstructive coronary artery disease. He has underwent a stress test in 2014 that showed no evidence of stress induced ischemia. He has history of chronic obstructive disease with chronic dyspnea on exertion. He has peripheral edema for the last few months. No clear PND or orthopnea. No palpitation. No documented malignant arrhythmia. His left ventricular systolic function has been normal in the past according to an echocardiogram performed most recently in 2016. His coronary risk factors are remarkable for the history of chronic tobacco use. He is a nondiabetic. No documented hypertension. MEDICATION: His medications at home are none. REVIEW OF SYSTEMS: RESPIRATORY SYSTEM. He has dyspnea on exertion. History of chronic obstructive lung disease. GI SYSTEM: No recent GI bleed. No peptic ulcer disease. SYSTEM: No dysuria or hematuria. NERVOUS SYSTEM: No stroke or seizure. PAST MEDICAL HISTORY: Past medical history is remarkable for history of DVT in the right upper extremity following a fracture. He underwent a duplex scan yesterday that showed no evidence of significant abnormalities. PHYSICAL EXAMINATION: He is a 42-year-old male, alert, oriented, no apparent distress. Blood pressure 114/60 with the heart rate in the 60s. HEAD: Normocephalic. EYES: Sclerae anicteric. NECK; good upstroke. No bruit. No jugular venous distention. LUNGS: With decreased air exchange. No wheezes. HEART: Regular rate and rhythm. S1, S2. No S3. No rub. ABDOMEN: Soft, nontender. Positive bowel sounds. No organomegaly. EXTREMITIES: No edema. Intact distal pulses. LAB DATA: Lab data revealed troponin less than 0.012. BUN and creatinine 16 and 0.93. Potassium 4.2. Hemoglobin of 15.9. EKG revealed a sinus mechanism, normal axis and intervals, normal electrocardiogram. Chest x-ray shows no acute changes. IMPRESSION: 1. Right shoulder and arm discomfort, has atypical feature for ischemic heart disease, probably noncardiac. 2. History of chronic tobacco use. 3. Prior history of deep venous thrombosis in the right arm. No evidence of recurrence. RECOMMENDATION: From the cardiac standpoint, I do not believe that his discomfort is cardiac in etiology. I would recommend to proceed with dobutamine stress echocardiogram. If there is no evidence of stress-induced ischemia, then no further cardiac workup will be needed. Thank you for this consult. We will follow with you. MMODL / IJN: [id number] /
[2018-04-19] MEDS ORDERED: ATROPINE SULFATE 0.1 MG/ML 10ML SYRINGE ONE (10:00)
--- NOTE | 2018-04-19 11:19 | ECHOS ---
STRESS ECHOCARDIOGRAM DATE OF SERVICE: 04/19/2018 INDICATIONS: Chest pain. MEDICATIONS: BASELINE HEART RATE: 56 BASELINE BLOOD PRESSURE: 113/79 MAXIMUM HEART RATE: 156 MAXIMUM BLOOD PRESSURE: 182/44 85% MPHR: 150 100% MPHR: 176 METS: MAXIMUM STAGE REACHED: TOTAL EXERCISE TIME: CLINICAL INFORMATION: Baseline rhythm is sinus mechanism, rate 56, normal axis and intervals. Normal electrocardiogram. Baseline blood pressure 113/79 mmHg. The patient received infusion of dobutamine per protocol as well as 0.5 mg of IV atropine. Peak rate 156 beats per minute which is equal to 90% predicted heart rate. Blood pressure 182/44 mmHg. Electrocardiograph monitoring revealed no evidence of diagnostic ischemic ST deviation. Baseline echocardiogram revealed normal wall thickening and motion. At peak exercise, there was normal wall motion and augmentation with no hypokinesis or dyskinesis. CONCLUSION: 1. Normal electrocardiographic response to dobutamine infusion. 2. Normal stress echocardiogram with no evidence of stress induced ischemia. MMODL / IJN: [id number] /
[2018-04-19 13:24] LABS: Creatine Kinase MB 0.9 ng/mL (0.0-2.4)
[2018-04-19 13:27] LABS: Troponin I 0.173 ng/mL (0.000-0.034)
[2018-04-19 16:28] LABS: Glucose,Whole Blood 83 mg/dL (75-99)
--- NOTE | 2018-04-19 17:04 | P.HPIM ---
History of Present Illness 42-year-old gentleman admitted for right-sided chest pain close to right shoulder area. Patient had Doppler of the right approximately which did not show any new DVT. Patient underwent stress test which was negative but the patient and repeat troponin was minimally elevated because of which cardiology is recommending one more day of monitoring and repeating troponin again. Patient is still complaining of pain in that area. Patient pain is sharp in nature sometimes he complains of pressure-like pain. Patient's d-dimer is negative chest x-ray did not show any pneumonic process. Review of Systems REVIEW OF SYSTEMS: CONSTITUTIONAL: No fever, no malaise, no fatigue. HEENT: No recent visual problems or hearing problems. Denied any sore throat. CARDIOVASCULAR: No orthopnea, PND, no palpitations, no syncope. PULMONARY: No shortness of breath, no cough, no hemoptysis. GASTROINTESTINAL: No diarrhea, no nausea, no vomiting, no abdominal pain. Normoactive bowel sounds. NEUROLOGICAL: No headaches, no weakness, no numbness. HEMATOLOGICAL: Denies any bleeding or petechiae. GENITOURINARY: Denies any burning micturition, frequency, or urgency. MUSCULOSKELETAL/RHEUMATOLOGICAL: Denies any joint pain, swelling, or any muscle pain. ENDOCRINE: Denies any polyuria or polydipsia. The rest of the 14-point review of systems is negative. Past Medical History Past Medical History: Chest Pain / Angina, COPD, Deep Vein Thrombosis (DVT), GERD/Reflux Additional Past Medical History / Comment(s): sciatica , pneumothorax x2, emphysema,DJD,KIDNEY STONES,HIATAL HERNIA, DVT in heidy and left side of the neck History of Any Multi-Drug Resistant Organisms: None Reported Past Surgical History: Heart Catheterization Additional Past Surgical History / Comment(s): left lung biopsy, BLEBS REMOVED, spontaneous pneumo X2 requitring c/t. HAD TUBES IN EAR CHILD, ENDOSCOPY Past Anesthesia/Blood Transfusion Reactions: No Reported Reaction Smoking Status: Current every day smoker - Past Family History Father Family Medical History: Cancer, COPD, Hyperlipidemia, Hypertension, Myocardial Infarction ([place]), Renal Disease Additional Family Medical History / Comment(s): DAD AT AGE 67- EMPHYSEMA, VALVE REPLACEMENT 1983, of carcinoma "CUPS" Mother Additional Family Medical History / Comment(s): MOM IS 70 HAS MS Medications and Allergies Home Medications Medication Instructions Recorded Confirmed Type No Known Home Medications [No 04/18/18 04/19/18 History Known Home Medications] Allergies Allergy/AdvReac Type Severity Reaction Status Date / Time morphine AdvReac Unknown Hallucinati Verified 04/19/18 07:49 ons Physical Exam Vitals: Vital Signs Temp Pulse Pulse Pulse Pulse Pulse Resp 04/19/18 15:50 62 62 60 16 04/19/18 12:27 04/19/18 11:20 98.1 F 71 18 04/19/18 07:25 97.7 F 68 18 04/19/18 04:30 16 04/19/18 04:28 97.5 F L 64 16 04/19/18 03:24 97.7 F 70 16 04/19/18 01:30 78 20 04/19/18 00:52 74 20 04/18/18 23:55 98.2 F 77 18 BP BP BP BP BP BP Pulse Ox 04/19/18 15:50 115/72 115/73 106/72 96 04/19/18 12:27 96 04/19/18 11:20 127/72 96 04/19/18 07:25 114/69 95 04/19/18 04:30 04/19/18 04:28 110/62 96 04/19/18 03:24 116/66 97 04/19/18 01:30 113/57 95 04/19/18 00:52 112/56 04/18/18 23:55 147/77 98 Intake and Output 04/19/18 04/19/18 04/19/18 06:59 14:59 22:59 Intake Total 500 Balance 500 Intake: Oral 400 Other 100 Other: Voiding Method Toilet # Voids 1 Weight 74.8 kg 74.389 kg PHYSICAL EXAMINATION: GENERAL: The patient is alert and oriented x3, not in any acute distress. Well developed, well nourished. HEENT: Pupils are round and equally reacting to light. EOMI. No scleral icterus. No conjunctival pallor. Normocephalic, atraumatic. No pharyngeal erythema. No thyromegaly. CARDIOVASCULAR: S1 and S2 present. No murmurs, rubs, or gallops. PULMONARY: Chest is clear to auscultation, no wheezing or crackles. ABDOMEN: Soft, nontender, nondistended, normoactive bowel sounds. No palpable organomegaly. MUSCULOSKELETAL: No joint swelling or deformity. EXTREMITIES: No cyanosis, clubbing, or pedal edema. NEUROLOGICAL: Gross neurological examination did not reveal any focal deficits. SKIN: No rashes. Results CBC & Chem 7: 04/19/18 00:23 04/19/18 00:23 Labs: Abnormal Lab Results - Last 24 Hours (Table) 04/19/18 04/19/18 Range/Units 00:23 12:25 Total Creatine Kinase 206 H (55-170) U/L Troponin I 0.173 H* (0.000-0.034) ng/mL Thrombosis Risk Factor Assmnt - Choose All That Apply Each Factor Represents 1 point: Age 41-60 years Each Risk Factor Represents 3 Points: History of DVT/PE Thrombosis Risk Factor Assessment Total Risk Factor Score: 4 Thrombosis Risk Factor Assessment Level: Moderate Risk Assessment and Plan Plan: -Chest pain: Atypical noncardiac in nature, workup as mentioned above adamant as mentioned above. -Coronary abuse: Counseling was provided -History of DVT in the right arm no evidence of recurrence at this time patient is not on any anti-correlation at this time
[2018-04-19] MEDS ORDERED: MEPERIDINE 50 MG/ML SYRINGE IVP STA (19:30)
[2018-04-20] MEDS ORDERED: NITROGLYCERIN SL TABS 0.4 MG TAB SUBLINGUAL PRN ×2 (00:05→07:48)
[2018-04-20] MEDS: KETOROLAC 30 MG/ML 1 ML VIAL IVP PRN ×3 (00:12→14:40)
[2018-04-20] MEDS ORDERED: MEPERIDINE 50 MG/ML SYRINGE IVP STA (00:24)
[2018-04-20] MEDS ORDERED: MEPERIDINE 50 MG/ML SYRINGE IVP ONE (02:00)
[2018-04-20] MEDS: SODIUM CHLORIDE 0.9% 1,000 ML IV SCH (05:56)
[2018-04-20] MEDS ORDERED: PANTOPRAZOLE 40 MG TABLET PO SCH (07:30)
[2018-04-20] MEDS ORDERED: ATORVASTATIN 80 MG TAB PO STA (07:48)
[2018-04-20] MEDS ORDERED: ASPIRIN 325 MG TAB PO STA (07:48)
[2018-04-20] MEDS ORDERED: SODIUM CHLORIDE 0.9% 1,000 ML in EMPTY BAG 1 BAG IV ONE (07:48)
[2018-04-20] MEDS ORDERED: ALPRAZolam 0.5 MG TAB PO PRN (07:48)
[2018-04-20] MEDS ORDERED: ALPRAZolam 0.25 MG TAB PO PRN (07:48)
[2018-04-20 08:49] VITALS: TEMP 97.1
[2018-04-20] MEDS ORDERED: diphenhydrAMINE 50 MG/ML 1 ML VIAL ONE (12:39)
[2018-04-20] MEDS ORDERED: LIDOCAINE 2% INJ 20 MG/ML (20 ML MDV) ONE (12:39)
[2018-04-20] MEDS ORDERED: fentaNYL (PF) 50 MCG/ML 2 ML AMP ONE (12:39)
[2018-04-20] MEDS ORDERED: VERAPAMIL 2.5 MG/ML 2 ML AMP ONE (12:40)
[2018-04-20] MEDS ORDERED: IV FLUID CONTINUATION 1,000 ML IV ONE (12:45)
[2018-04-20] MEDS ORDERED: fentaNYL (PF) 50 MCG/ML 2 ML AMP IV ONE (12:51)
[2018-04-20] MEDS ORDERED: MIDAZOLAM 2 MG/2 ML VIAL ONE (12:55)
[2018-04-20] MEDS ORDERED: LIDOCAINE 2% INJ 20 MG/ML SQ ONE (12:55)
[2018-04-20] MEDS ORDERED: MIDAZOLAM 2 MG/2 ML VIAL IV ONE (12:57)
[2018-04-20] MEDS ORDERED: VERAPAMIL SYRINGE (5 MG/10 ML) INTRAARTER ONE (12:58)
[2018-04-20] MEDS ORDERED: HEPARIN SODIUM 1,000 UN/ML (10ML VL) ONE (13:03)
[2018-04-20] MEDS ORDERED: HEPARIN SODIUM 1,000 UN/ML (10ML VL) IV ONE (13:05)
[2018-04-20] MEDS ORDERED: IOPAMIDOL-370 100ML BTL INJ ONE (13:09)
[2018-04-20] MEDS ORDERED: RX INFO: IV CONTRAST WAS GIVEN 1 EACH MISC MISCELLANE PRN (13:18)
[2018-04-20] MEDS ORDERED: SODIUM CHLORIDE 0.9% 1,000 ML IV SCH (13:30)
--- NOTE | 2018-04-20 13:38 | P.PN ---
Subjective 42-year-old admitted for chest pain, stress test was negative but patient has minimally elevated troponin 0.173 followed by 0.113 and then 0.008 because of which cardiology is planning on cardiac catheterization. If that is negative patient will be discharged. Patient is still complaining of right-sided chest pain which appears to be mostly musculoskeletal in nature. Constitutional: Denied any fatigue denied any fever. Cardio vascular: denied any palpitations Gastrointestinal denied any nausea vomiting Pulmonary: Denied any shortness of breath cough Neurologic denied any new focal deficits Objective - Vital Signs Vital signs: Vital Signs Temp 97.1 F L 04/20/18 08:10 Pulse 64 04/20/18 11:45 Resp 16 04/20/18 11:45 BP 110/75 04/20/18 11:45 Pulse Ox 96 04/20/18 11:45 Intake & Output 04/19/18 04/20/18 04/20/18 18:59 06:59 18:59 Intake Total 500 75 Output Total 700 Balance 500 -700 75 Weight 74.389 kg 61 kg Intake: IV 75 Oral 400 Other 100 Output: Urine 700 Other: Voiding Method Toilet Toilet # Voids 1 - Exam PHYSICAL EXAMINATION: GENERAL: The patient is alert and oriented x3, not in any acute distress. Well developed, well nourished. HEENT: Pupils are round and equally reacting to light. EOMI. No scleral icterus. No conjunctival pallor. Normocephalic, atraumatic. No pharyngeal erythema. No thyromegaly. CARDIOVASCULAR: S1 and S2 present. No murmurs, rubs, or gallops. PULMONARY: Chest is clear to auscultation, no wheezing or crackles. ABDOMEN: Soft, nontender, nondistended, normoactive bowel sounds. No palpable organomegaly. MUSCULOSKELETAL: No joint swelling or deformity. EXTREMITIES: No cyanosis, clubbing, or pedal edema. NEUROLOGICAL: Gross neurological examination did not reveal any focal deficits. SKIN: No rashes. - Labs CBC & Chem 7: 04/19/18 00:23 04/19/18 00:23 Labs: Abnormal Lab Results - Last 24 Hours (Table) 04/19/18 Range/Units 18:28 Troponin I 0.113 H* (0.000-0.034) ng/mL Assessment and Plan Plan: -Chest pain: Atypical noncardiac in nature, workup as mentioned above and management as mentioned above. -Coronary abuse: -History of DVT in the right arm no evidence of recurrence at this time patient is not on any anti-coagulation at this time
--- NOTE | 2018-04-20 14:29 | P.DS ---
Providers Date of admission: 04/19/18 03:02 Attending physician: Brandan Esparza Consults: 04/19/18 03:45 Consult Physician Stat Consulting Provider: Max Bhandari Consult Reason/Comments: Chest pain, UA Do you want consulting provider notified?: Yes Primary care physician: Stated None Hospital Course: Patient had a catheterization did not show any significant the coronary occlusive disease, if cleared by cardiology patient will be discharged today will be asked to take Advil at home for his musculoskeletal pain follow with PCP. For further details please refer to my progress note Patient Condition at Discharge: Stable Plan - Discharge Summary New Discharge Prescriptions: No Action No Known Home Medications [No Known Home Medications] Discharge Medication List No Known Home Medications [No Known Home Medications] 04/18/18 [History] Follow up Appointment(s)/Referral(s): Evin Singh MD [STAFF PHYSICIAN] - 1 Week None,Stated [Primary Care Provider] - 1-2 days Discharge Disposition: HOME SELF-CARE
[2018-04-20 14:37] VITALS: RESP 18
--- NOTE | 2018-04-20 15:14 | CC ---
CARDIAC CATHETERIZATION REPORT Mr. Huston is a 42-year-old male with known history of chronic tobacco use who presented with right chest discomfort. His initial 2 sets of enzymes were unremarkable. He underwent a stress echocardiogram which revealed no evidence of inducible ischemia. Subsequently, the 3rd set of enzymes came back mildly elevated and because of that, recommendation made regarding cardiac catheterization. The procedures, risks and complications were discussed with the patient who is in full understanding and agreement. PROCEDURE: Patient was brought to the labor employment associate in a fasting state after receiving fentanyl and Benadryl and achieving moderate conscious state, he was draped and prepped in conventional fashion using Xylocaine anesthesia and Seldinger technique. 6-Indonesian sheath was introduced in the right radial artery. Selective right and left coronary angiography performed using 5-Indonesian 3 and half bend right and left Roger catheter. Multiple views of the coronary artery including hemiaxial view was obtained. Following that a 5-Indonesian tight pigtail catheter was introduced into the left ventricle and a 30 degree SIMS view of the left ventricle was obtained. Following that, the catheter and sheath were removed. Hemostasis was obtained with deployment of a TR band. There was no immediate complication. Patient is returned to his room in stable condition. FINDINGS: 1. LEFT MAIN: This is a large-sized vessel bifurcating into left circumflex, left anterior descending artery. Left main coronary artery without any significant obstructive disease. 2. LEFT ANTERIOR DESCENDING ARTERY: This is a large-sized vessel reaching to the apex with a wraparound apex segment giving rise to a moderate-sized diagonal branch. Left anterior descending artery as well as branches have no evidence of obstructive coronary disease. 3. LEFT CIRCUMFLEX: This is a large nondominant vessel giving rise to a large 1st obtuse marginal branch that has no evidence of high-grade stenosis. 4. RIGHT CORONARY ARTERY: This is a large dominant vessel bifurcating into the PDA and posterolateral segment and branches. The right coronary artery as well as branches have no evidence of obstructive coronary artery disease. 5. LEFT VENTRICULOGRAM: Left ventriculogram was performed in 30 degree SIMS view and revealed normal left ventricular size and systolic function. Ejection fraction is 55%. There was no significant mitral regurgitation. HEMODYNAMICS: There was no gradient across the aortic valve. The left ventricle end-diastolic pressure was 8-12 mmHg. CONCLUSION: 1. Normal coronary arteries. 2. Normal left ventricular size and systolic function. RECOMMENDATION: In view of findings and anatomy, I have recommended continued medical therapy with aggressive coronary risk factor modifications that have been initiated. Those findings and recommendations were discussed with the patient and he is in full understanding and agreement. Duration of procedure: 16 minutes. JON / KERRYN: [id number] /
[2018-04-20 15:15] VITALS: BP 107/74; PULSE 67
== END 2018-04-20 17:50 | disposition home or self-care (01) ==
LOC: EC 23:53 → 3OBS 04-19 03:02 → 6SEL 04-19 15:41
PROVIDERS: ADMIT Hospitalist; ATTEND Hospitalist
DX: R07.89 Other chest pain (principal); R55 Syncope and collapse; R42 Dizziness and giddiness; J44.9 Chronic obstructive pulmonary disease, unspecified; K21.9 Gastro-esophageal reflux disease without esophagitis; F17.200 Nicotine dependence, unspecified, uncomplicated; M54.30 Sciatica, unspecified side; M19.90 Unspecified osteoarthritis, unspecified site; K44.9 Diaphragmatic hernia without obstruction or gangrene; F41.9 Anxiety disorder, unspecified; F32.9 Major depressive disorder, single episode, unspecified; M79.671 Pain in right foot; M79.672 Pain in left foot; Z88.5 Allergy status to narcotic agent; Z86.711 Personal history of pulmonary embolism; Z87.442 Personal history of urinary calculi; Z82.5 Family history of asthma and other chronic lower respiratory diseases; Z82.49 Family history of ischemic heart disease and other diseases of the circulatory system; Z83.49 Family history of other endocrine, nutritional and metabolic diseases; Z84.1 Family history of disorders of kidney and ureter; Z80.9 Family history of malignant neoplasm, unspecified; Z82.0 Family history of epilepsy and other diseases of the nervous system
CPT/HCPCS: 99285 ×2; 96375 ×3; 96361 ×4; 96376 ×2; 96365; 96366; 36415; 94760 ×2; 93005; 93351; 93458; 85379; 83880; 80053; 82550; 82553; 83735; 84484 ×2; 85025; 85610; 85730; 71046; 93971; G0378 ×3; C1894; C1769; J2001; J2250; J1250; J2175 ×2; J0461; J3010; J1885 ×2; J1644; Q9967

== ENCOUNTER 2020-09-28 08:48 | Emergency (ER) | payer OTHER ==
[2020-09-28 08:57] VITALS: RESP 18
[2020-09-28] MEDS ORDERED: FAMOTIDINE 20 MG TAB PO STA (09:08)
[2020-09-28] MEDS ORDERED: predniSONE 50 MG TAB PO STA (09:09)
--- NOTE | 2020-09-28 09:31 | ED ---
SOB HPI - General Chief Complaint: Shortness of Breath Stated Complaint: RAJAN,Chest Pain,Throat Pain Time Seen by Provider: 09/28/20 08:58 Source: patient, RN notes reviewed Mode of arrival: ambulatory Limitations: no limitations - History of Present Illness Initial Comments: This a 45-year-old male who was a smoker who states he woke up this point with swelling to his uvula and posterior pharynx. He states it is getting better was having some shortness of breath with it. He did feel a little off balance with a. IN exam he denies any fevers chills nausea vomiting sweats chest pain or overt shortness of breath. He states he was drinking some beer last night with a friend his he does not recall getting into any food or materials that could've caused swelling no hot items ingested. No known ALLERGIES. MD Complaint: shortness of breath - Related Data Previous Rx's Medication Instructions Recorded Famotidine [Pepcid] 20 mg PO BID #10 tablet 09/28/20 methylPREDNISolone Dose Pack 4 mg PO DIRECTED #21 package 09/28/20 [Medrol Dose Pack] Allergies Allergy/AdvReac Type Severity Reaction Status Date / Time morphine AdvReac Unknown Hallucinati Verified 09/28/20 08:56 ons Review of Systems ROS Statement: Those systems with pertinent positive or pertinent negative responses have been documented in the HPI. ROS Other: All systems not noted in ROS Statement are negative. Past Medical History Past Medical History: Chest Pain / Angina, COPD, Deep Vein Thrombosis (DVT), GERD/Reflux Additional Past Medical History / Comment(s): sciatica , pneumothorax x2, emphysema,DJD,KIDNEY STONES,HIATAL HERNIA, DVT in heidy and left side of the neck History of Any Multi-Drug Resistant Organisms: None Reported Past Surgical History: Heart Catheterization Additional Past Surgical History / Comment(s): left lung biopsy, BLEBS REMOVED, spontaneous pneumo X2 requitring c/t. HAD TUBES IN EAR CHILD, ENDOSCOPY Past Anesthesia/Blood Transfusion Reactions: No Reported Reaction Past Psychological History: Anxiety, Depression Smoking Status: Current every day smoker Past Alcohol Use History: Occasional Past Drug Use History: Marijuana - Past Family History Father Family Medical History: Cancer, COPD, Hyperlipidemia, Hypertension, Myocardial Infarction ([place]), Renal Disease Additional Family Medical History / Comment(s): DAD AT AGE 67- EMPHYSEMA, VALVE REPLACEMENT 1983, of carcinoma "CUPS" Mother Additional Family Medical History / Comment(s): MOM IS 70 HAS MS General Exam - General Exam Comments Initial Comments: This a well-developed well-nourished awake alert oriented times 3 male Limitations: no limitations General appearance: alert, in no apparent distress Head exam: Present: atraumatic, normocephalic, normal inspection Eye exam: Present: normal appearance, PERRL, EOMI. Absent: scleral icterus, c onjunctival injection, periorbital swelling ENT exam: Present: other (Posterior pharynx examination reveals erythema with uvular edema. No exudate seen tongue is within normal limits other mucosa within normal limits.) Neck exam: Present: normal inspection, full ROM, other. Absent: tenderness, meningismus, lymphadenopathy Respiratory exam: Present: normal lung sounds bilaterally (No stridor JVD or bruits). Absent: respiratory distress, wheezes, rales, rhonchi, stridor Cardiovascular Exam: Present: regular rate, normal rhythm, normal heart sounds. Absent: systolic murmur, diastolic murmur, rubs, gallop, clicks Extremities exam: Present: full ROM Back exam: Present: full ROM Neurological exam: Present: alert, oriented X3, CN II-XII intact Psychiatric exam: Present: normal affect, normal mood Skin exam: Present: warm, dry, intact, normal color. Absent: rash Course Vital Signs 09/28/20 09/28/20 08:54 09:27 Temperature 98.0 F Pulse Rate 82 Respiratory 18 18 Rate Blood Pressure 128/90 O2 Sat by Pulse 99 Oximetry Medical Decision Making - Medical Decision Making The presentation is consistent with hyperemia to the posterior pharynx or uvula of unknown etiology patient had been improving prior to arrival here. He placed on a short course of steroids and histamine blockers. He is in agreement with this. Disposition Clinical Impression: Uvular edema, Uvulitis Disposition: HOME SELF-CARE Condition: Good Instructions (If sedation given, give patient instructions): Uvulitis (ED) Additional Instructions: Medications since ER preferred pharmacy, avoid hot beverages/food for the next 1-2 days. Prescriptions: methylPREDNISolone Dose Pack [Medrol Dose Pack] 4 mg PO DIRECTED #21 package Famotidine [Pepcid] 20 mg PO BID #10 tablet Is patient prescribed a controlled substance at d/c from ED?: No Referrals: None,Stated [Primary Care Provider] - 1-2 days
[2020-09-28 10:04] VITALS: BP 122/85; PULSE 69; TEMP 98
== END 2020-09-28 09:59 | disposition home or self-care (01) ==
LOC: EC 08:48
DX: K12.2 Cellulitis and abscess of mouth (principal); K13.79 Other lesions of oral mucosa; F17.200 Nicotine dependence, unspecified, uncomplicated; Z88.5 Allergy status to narcotic agent; Z86.718 Personal history of other venous thrombosis and embolism
CPT/HCPCS: 99284; J7512

== ENCOUNTER 2021-11-01 06:20 | Emergency (ER) | payer OTHER ==
[2021-11-01 06:23] VITALS: TEMP 98
[2021-11-01] MEDS ORDERED: ONDANSETRON 4 MG/2 ML VIAL IVP STA (06:43)
[2021-11-01] MEDS ORDERED: SODIUM CHLORIDE 0.9% 1,000 ML IV STA (06:43)
[2021-11-01] MEDS ORDERED: HYDROmorphone 0.5 MG/0.5 ML SYRINGE IVP STA ×2 (06:44→08:10)
[2021-11-01 07:06] LABS: Basophils # (A) 0.1 k/uL (0-0.2); Basophils % (A) 1 %; Eosinophils # (A) 0.2 k/uL (0-0.7); Eosinophils % (A) 3 %; HGB 17.5 gm/dL (13.0-17.5); Lymphocytes # (A) 2.2 k/uL (1.0-4.8); Lymphocytes % (A) 26 %; MCH 34.2 pg (25.0-35.0); MCV 103.5 fL (80.0-100.0); Macrocytosis Slight; Mean Platelet Volume 8.5; Monocytes # (A) 0.7 k/uL (0-1.0); Monocytes % (A) 8 %; Neutrophils # (A) 4.9 k/uL (1.3-7.7); Neutrophils % (A) 59 %; Platelet Count 196 k/uL (150-450); RBC 5.12 m/uL (4.30-5.90); RDW 13.1 % (11.5-15.5); WBC 8.2 k/uL (3.8-10.6)
[2021-11-01 07:17] LABS: ALT 12 U/L (4-49); AST 24 U/L (17-59); African American GFR (CKD) >90 (>60 ml/min/1.73 sqM); Albumin 4.1 g/dL (3.5-5.0); Alkaline Phosphatase 72 U/L (38-126); Amylase 72 U/L (30-110); Anion Gap 6 mmol/L; Blood Urea Nitrogen 16 mg/dL (9-20); Calcium 9.4 mg/dL (8.4-10.2); Carbon Dioxide 24 mmol/L (22-30); Chloride 109 mmol/L (98-107); Glucose 94 mg/dL (74-99); Lipase 140 U/L (23-300); Non-African American GFR(CKD) 87 (>60 ml/min/1.73 sqM); Potassium 4.6 mmol/L (3.5-5.1); Sodium 139 mmol/L (137-145); Total Bilirubin 0.5 mg/dL (0.2-1.3); Total Protein 7.1 g/dL (6.3-8.2)
--- NOTE | 2021-11-01 07:19 | ED ---
General Adult HPI - General Chief complaint: Abdominal Pain Stated complaint: Abd Pain Time Seen by Provider: 11/01/21 06:28 Source: patient, RN notes reviewed Mode of arrival: ambulatory Limitations: no limitations - History of Present Illness Initial comments: 46-year-old male presents to the emergency room for a chief complaint of right lower quadrant abdominal pain. Patient has had abdominal pain for the past 2 days. Patient states it hurts more when he is lying flat. States he is nauseous no vomiting. No diarrhea. No fevers. Only history of surgery was for a hiatal hernia in the remote past.Patient has no other complaints at this time including shortness of breath, chest pain, nausea or vomiting, headache, or visual changes. - Related Data Previous Rx's Medication Instructions Recorded Dicyclomine [Bentyl] 20 mg PO TID PRN #20 tablet 11/01/21 Allergies Allergy/AdvReac Type Severity Reaction Status Date / Time morphine AdvReac Unknown Hallucinati Verified 11/01/21 08:45 ons Review of Systems ROS Statement: Those systems with pertinent positive or pertinent negative responses have been documented in the HPI. ROS Other: All systems not noted in ROS Statement are negative. Past Medical History Past Medical History: Chest Pain / Angina, COPD, Deep Vein Thrombosis (DVT), GERD/Reflux Additional Past Medical History / Comment(s): sciatica , pneumothorax x2, emphysema,DJD,KIDNEY STONES,HIATAL HERNIA, DVT in heidy and left side of the neck History of Any Multi-Drug Resistant Organisms: None Reported Past Surgical History: Heart Catheterization Additional Past Surgical History / Comment(s): left lung biopsy, BLEBS REMOVED, spontaneous pneumo X2 requitring c/t. HAD TUBES IN EAR CHILD, ENDOSCOPY Past Anesthesia/Blood Transfusion Reactions: No Reported Reaction Past Psychological History: Anxiety, Depression Smoking Status: Current every day smoker Past Alcohol Use History: Occasional Past Drug Use History: Marijuana - Past Family History Father Family Medical History: Cancer, COPD, Hyperlipidemia, Hypertension, Myocardial Infarction ([place]), Renal Disease Additional Family Medical History / Comment(s): DAD AT AGE 67- EMPHYSEMA, VALVE REPLACEMENT 1983, of carcinoma "CUPS" Mother Additional Family Medical History / Comment(s): MOM IS 70 HAS MS General Exam Limitations: no limitations General appearance: alert, in no apparent distress Head exam: Present: atraumatic Eye exam: Present: normal appearance, PERRL, EOMI. Absent: scleral icterus, conjunctival injection ENT exam: Present: normal exam, mucous membranes moist Neck exam: Present: normal inspection, full ROM. Absent: tenderness Respiratory exam: Present: normal lung sounds bilaterally. Absent: respiratory distress, wheezes Cardiovascular Exam: Present: regular rate, normal rhythm, normal heart sounds GI/Abdominal exam: Present: soft, tenderness (RLQ pain, tenderness. no upper abdominal tenderness, no L lower quadrant tenderness), normal bowel sounds. Absent: distended, guarding, rebound Course Vital Signs 11/01/21 11/01/21 06:21 07:48 Temperature 98.0 F Pulse Rate 86 82 Respiratory 20 16 Rate Blood Pressure 130/80 130/80 O2 Sat by Pulse 98 Oximetry Medical Decision Making - Medical Decision Making Vitals are stable. HPI and physical exam as documented. CBC and CMP are unremarkable. Amylase and lipase are normal. Urinalysis is negative for infection. CT abdomen and pelvis with contrast shows no acute intra-abdominal process. However there is a mildly enlarged pancreatic duct with a hypodense area in the organic process. Could be evaluated with MRCP if clinically warranted. Patient does not have any epigastric pain however we will refer him to GI for more imaging and evaluation. He also has bilateral not exerting renal calculi and right renal cyst. No CVA tenderness. At this time we can discharge patient with outpatient follow-up as he does not appear to have an acute abdomen. If he has any worsening symptoms he is aware he should return to the emergency room. He is also feeling much better on reevaluation after pain medication. - Lab Data Result diagrams: 11/01/21 06:49 11/01/21 06:49 Lab Results 11/01/21 11/01/21 11/01/21 Range/Units 06:49 06:49 06:49 WBC 8.2 (3.8-10.6) k/uL RBC 5.12 (4.30-5.90) m/uL Hgb 17.5 (13.0-17.5) gm/dL Hct 53.0 (39.0-53.0) % MCV 103.5 H (80.0-100.0) fL MCH 34.2 (25.0-35.0) pg MCHC 33.0 (31.0-37.0) g/dL RDW 13.1 (11.5-15.5) % Plt Count 196 (150-450) k/uL MPV 8.5 Neutrophils % 59 % Lymphocytes % 26 % Monocytes % 8 % Eosinophils % 3 % Basophils % 1 % Neutrophils # 4.9 (1.3-7.7) k/uL Lymphocytes # 2.2 (1.0-4.8) k/uL Monocytes # 0.7 (0-1.0) k/uL Eosinophils # 0.2 (0-0.7) k/uL Basophils # 0.1 (0-0.2) k/uL Macrocytosis Slight Sodium 139 (137-145) mmol/L Potassium 4.6 (3.5-5.1) mmol/L Chloride 109 H (98-107) mmol/L Carbon Dioxide 24 (22-30) mmol/L Anion Gap 6 mmol/L BUN 16 (9-20) mg/dL Creatinine 1.02 (0.66-1.25) mg/dL Est GFR (CKD-EPI)AfAm >90 (>60 ml/min/1.73 sqM) Est GFR (CKD-EPI)NonAf 87 (>60 ml/min/1.73 sqM) Glucose 94 (74-99) mg/dL Plasma Lactic Acid Tee 0.7 (0.7-2.0) mmol/L Calcium 9.4 (8.4-10.2) mg/dL Total Bilirubin 0.5 (0.2-1.3) mg/dL AST 24 (17-59) U/L ALT 12 (4-49) U/L Alkaline Phosphatase 72 (38-126) U/L Total Protein 7.1 (6.3-8.2) g/dL Albumin 4.1 (3.5-5.0) g/dL Amylase 72 (30-110) U/L Lipase 140 (23-300) U/L Urine Color Urine Appearance (Clear) Urine pH (5.0-8.0) Ur Specific Denio (1.001-1.035) Urine Protein (Negative) Urine Glucose (UA) (Negative) Urine Ketones (Negative) Urine Blood (Negative) Urine Nitrite (Negative) Urine Bilirubin (Negative) Urine Urobilinogen (<2.0) mg/dL Ur Leukocyte Esterase (Negative) 12/12/21 Range/Units 07:48 WBC (3.8-10.6) k/uL RBC (4.30-5.90) m/uL Hgb (13.0-17.5) gm/dL Hct (39.0-53.0) % MCV (80.0-100.0) fL MCH (25.0-35.0) pg MCHC (31.0-37.0) g/dL RDW (11.5-15.5) % Plt Count (150-450) k/uL MPV Neutrophils % % Lymphocytes % % Monocytes % % Eosinophils % % Basophils % % Neutrophils # (1.3-7.7) k/uL Lymphocytes # (1.0-4.8) k/uL Monocytes # (0-1.0) k/uL Eosinophils # (0-0.7) k/uL Basophils # (0-0.2) k/uL Macrocytosis Sodium (137-145) mmol/L Potassium (3.5-5.1) mmol/L Chloride (98-107) mmol/L Carbon Dioxide (22-30) mmol/L Anion Gap mmol/L BUN (9-20) mg/dL Creatinine (0.66-1.25) mg/dL Est GFR (CKD-EPI)AfAm (>60 ml/min/1.73 sqM) Est GFR (CKD-EPI)NonAf (>60 ml/min/1.73 sqM) Glucose (74-99) mg/dL Plasma Lactic Acid Tee (0.7-2.0) mmol/L Calcium (8.4-10.2) mg/dL Total Bilirubin (0.2-1.3) mg/dL AST (17-59) U/L ALT (4-49) U/L Alkaline Phosphatase (38-126) U/L Total Protein (6.3-8.2) g/dL Albumin (3.5-5.0) g/dL Amylase (30-110) U/L Lipase (23-300) U/L Urine Color Yellow Urine Appearance Clear (Clear) Urine pH 5.5 (5.0-8.0) Ur Specific Denio 1.033 (1.001-1.035) Urine Protein Negative (Negative) Urine Glucose (UA) Negative (Negative) Urine Ketones Negative (Negative) Urine Blood Negative (Negative) Urine Nitrite Negative (Negative) Urine Bilirubin Negative (Negative) Urine Urobilinogen <2.0 (<2.0) mg/dL Ur Leukocyte Esterase Negative (Negative) Disposition Clinical Impression: Renal cyst, Pancreatic duct dilated Disposition: HOME SELF-CARE Condition: Good Instructions (If sedation given, give patient instructions): Acute Abdominal Pain (ED) Additional Instructions: Please take medication as directed. Follow up with GI and primary care to review cat scan results. Return to the ER for any worsening symptoms. Prescriptions: Dicyclomine [Bentyl] 20 mg PO TID PRN #20 tablet PRN Reason: abdominal pain Is patient prescribed a controlled substance at d/c from ED?: No Referrals: Penny Bhandari MD [STAFF PHYSICIAN] - 1-2 days Jerry Quintero MD [REFERRING] - 1-2 days Time of Disposition: 09:08
[2021-11-01 07:48] VITALS: RESP 16
[2021-11-01 07:54] LABS: Appearance,Urine Clear (Clear); Bilirubin,Urine Negative (Negative); Blood,Urine Negative (Negative); Color,Urine Yellow; Glucose,Urine (UA) Negative (Negative); Ketones,Urine Negative (Negative); Leukocyte Esterase,Urine Negative (Negative); Nitrite,Urine Negative (Negative); PH, Urine 5.5 (5.0-8.0); Protein,Urine Negative (Negative); Specific Gravity,Urine 1.033 (1.001-1.035); Urobilinogen,Urine <2.0 mg/dL (<2.0)
--- NOTE | 2021-11-01 08:45 | CT ---
EXAMINATION TYPE: CT abdomen pelvis w con CT DLP: 827.8 mGycm, Automated exposure control for dose reduction was used. DATE OF EXAM: 11/01/2021 7:41 AM COMPARISON: None CLINICAL INDICATION:Male, 46 years old with history of abdominal pain; PHH, RUQ pain, nausea TECHNIQUE: Standard CT of the abdomen and pelvis following the administration of 75 cc of Isovue 30 0 IV contrast material. Coronal and sagittal reformats were performed. FINDINGS: LOWER CHEST: Unremarkable ABDOMEN LIVER: Multiple subcentimeter hypoattenuating structures are demonstrated throughout the liver, which are too small to accurately characterize but statistically likely to represent simple hepatic cysts GALLBLADDER AND BILE DUCTS: Also appear within no evidence of adjacent fat stranding PANCREAS: Hypodensity measuring 5mm in the pancreatic uncinate process likely representing sidebranch IPMN vs cyst. The main pancreatic duct is prominent in the pancreatic head measuring up to 4 mm. SPLEEN: Unremarkable. ADRENAL GLANDS: Unremarkable. KIDNEYS AND URETERS: No evidence of hydronephrosis. Bilateral nonobstructing renal calculi measuring up to 3 mm bilaterally. Right renal cyst measuring up to 5 cm. The ureters are unremarkable. PELVIS BLADDER: Unremarkable REPRODUCTIVE: Unremarkable. ABDOMEN & PELVIS STOMACH AND BOWEL: Stomach and duodenum are unremarkable. Scattered diverticula are noted throughout the colon. No evidence of bowel obstruction. PERITONEUM: No evidence of pneumoperitoneum or free fluid. VASCULATURE: Mild atherosclerotic calcifications are present throughout the abdominal aorta and its b ranches. MUSCULOSKELETAL: No acute osseous abnormalities LYMPH NODES: No gross evidence for lymphadenopathy. SOFT TISSUE/ABDOMINAL WALL: Unremarkable IMPRESSION: 1. No evidence for acute intra-abdominal process. 2. Mildly enlarged main pancreatic duct at 4mm in the pancreatic head, along with a uncinate process hypodense area measuring 5 mm which may represent a side branch IPMN. These could be further evaluate d with MRCP if clinically warranted. 3. Bilateral nonobstructing renal calculi. 4. Right renal simple appearing cyst. 5. Colonic diverticulosis
[2021-11-01 09:19] VITALS: BP 136/74; PULSE 80
== END 2021-11-01 09:18 | disposition home or self-care (01) ==
LOC: EC 06:20
DX: N28.1 Cyst of kidney, acquired (principal); K86.89 Other specified diseases of pancreas; J44.9 Chronic obstructive pulmonary disease, unspecified; Z86.718 Personal history of other venous thrombosis and embolism; F41.9 Anxiety disorder, unspecified; F32.A Depression, unspecified; F12.90 Cannabis use, unspecified, uncomplicated; F17.200 Nicotine dependence, unspecified, uncomplicated; Z72.89 Other problems related to lifestyle
CPT/HCPCS: 36415; 80053; 82150; 83605; 83690; 85025; 81003; 74177; 99284; 96375 ×2; 96361; 96374; J2405; J1170; Q9967

== ENCOUNTER 2021-11-03 17:15 | Observation (INO) | payer OTHER ==
[2021-11-03] MEDS ORDERED: HYDROmorphone 1 MG/ML 1 ML SYRINGE IVP STA (20:51)
[2021-11-03 20:53] LABS: Basophils # (A) 0.1 k/uL (0-0.2); Basophils % (A) 1 %; Eosinophils # (A) 0.2 k/uL (0-0.7); Eosinophils % (A) 2 %; HCT 50.6 % (39.0-53.0); HGB 16.6 gm/dL (13.0-17.5); Lymphocytes # (A) 2.9 k/uL (1.0-4.8); Lymphocytes % (A) 41 %; MCH 34.9 pg (25.0-35.0); MCHC 32.8 g/dL (31.0-37.0); MCV 106.3 fL (80.0-100.0); Macrocytosis Moderate; Mean Platelet Volume 9.4; Monocytes # (A) 0.5 k/uL (0-1.0); Monocytes % (A) 7 %; Neutrophils # (A) 3.2 k/uL (1.3-7.7); Neutrophils % (A) 46 %; Platelet Count 162 k/uL (150-450); RBC 4.76 m/uL (4.30-5.90)
[2021-11-03 20:56] LABS: ALT 12 U/L (4-49); AST 21 U/L (17-59); African American GFR (CKD) >90 (>60 ml/min/1.73 sqM); Albumin 3.9 g/dL (3.5-5.0); Alkaline Phosphatase 65 U/L (38-126); Anion Gap 10 mmol/L; Blood Urea Nitrogen 14 mg/dL (9-20); Carbon Dioxide 22 mmol/L (22-30); Chloride 107 mmol/L (98-107); Glucose 83 mg/dL (74-99); Lipase 72 U/L (23-300); Non-African American GFR(CKD) >90 (>60 ml/min/1.73 sqM); Sodium 139 mmol/L (137-145); Total Bilirubin 0.3 mg/dL (0.2-1.3); Total Protein 6.8 g/dL (6.3-8.2)
[2021-11-03 20:58] LABS: Partial Thromboplastin Time 24.6 sec (22.0-30.0); Prothrombin Time 10.7 sec (9.0-12.0)
--- NOTE | 2021-11-03 21:10 | XR ---
EXAMINATION TYPE: XR KUB DATE OF EXAM: 11/03/2021 9:06 PM INDICATION: Patient age:Male; 46 years old; Reason for study: ab pain; COMPARISON: CT of the abdomen and pelvis 11/01/2021 TECHNIQUE: One radiographic view of the abdomen was obtained. FINDINGS: The bowel gas pattern is nonspecific without dilated loops of small or large bowel. There i s no evidence for organomegaly or pneumoperitoneum. The osseous structures are intact. No abnormal calcifications are present. Fecal material and gas are demonstrated throughout the colon and rectum. IMPRESSION: No acute abdominal process.
[2021-11-03] MEDS ORDERED: NALOXONE 0.4 MG/ML 1 ML VIAL IV PRN (22:28)
--- NOTE | 2021-11-03 22:28 | ED ---
Abdominal Pain HPI - General Chief Complaint: Abdominal Pain Stated Complaint: Abd Pain Time Seen by Provider: 11/03/21 18:35 Source: patient Mode of arrival: ambulatory - History of Present Illness Initial Comments: 46-year-old male past history of COPD presents to the emergency departments with reported right-sided abdominal pain. Patient was seen in the emergency room in 2 days ago for similar complaints. Reports to right-sided periumbilical abdominal pain which is cramping in nature. He has associated nausea without vomiting. No bowel or bladder complaints. No chest pain or shortness of breath. He was seen in the emergency department and laboratories his regular conducted. CT demonstrated some mild pancreatic duct dilation. He was discharged home and told to follow up with Dr. Sheldon. States that he attempted to call her office however he is unable to be seen by her until December. He reports that his pain was worsening and therefore presents for further evaluation. He denies a ripping or tearing sensation to his back. No numbness, tingling or weakness in his legs. No other alleviating, precipitating or modifying factors - Related Data Previous Rx's Medication Instructions Recorded Acetaminophen Tab [Tylenol] 650 mg PO Q6HR PRN 7 Days #15 tab 11/06/21 Dicyclomine [Bentyl] 20 mg PO QID PRN #60 tab 11/06/21 Lidocaine 5% Patch [Lidoderm 5% 1 patch TOPICAL DAILY #3 patch 11/06/21 Patch] Ondansetron [Zofran] 4 mg PO Q8HR PRN 2 Days #8 tab 11/06/21 Allergies Allergy/AdvReac Type Severity Reaction Status Date / Time morphine AdvReac Unknown Hallucinati Verified 11/03/21 22:49 ons Review of Systems ROS Statement: Those systems with pertinent positive or pertinent negative responses have been documented in the HPI. ROS Other: All systems not noted in ROS Statement are negative. Past Medical History Past Medical History: Chest Pain / Angina, COPD, Deep Vein Thrombosis (DVT), GERD/Reflux Additional Past Medical History / Comment(s): sciatica , pneumothorax x2, emphysema,DJD,KIDNEY STONES,HIATAL HERNIA, DVT in heidy and left side of the neck History of Any Multi-Drug Resistant Organisms: None Reported Past Surgical History: Heart Catheterization Additional Past Surgical History / Comment(s): left lung biopsy, BLEBS REMOVED, spontaneous pneumo X2 requitring c/t. HAD TUBES IN EAR CHILD, ENDOSCOPY Past Anesthesia/Blood Transfusion Reactions: No Reported Reaction Past Psychological History: Anxiety, Depression Smoking Status: Current every day smoker Past Alcohol Use History: Occasional Past Drug Use History: Marijuana - Past Family History Father Family Medical History: Cancer, COPD, Hyperlipidemia, Hypertension, Myocardial Infarction ([place]), Renal Disease Additional Family Medical History / Comment(s): DAD AT AGE 67- EMPHYSEMA, VALVE REPLACEMENT 1983, of carcinoma "CUPS" Mother Additional Family Medical History / Comment(s): MOM IS 70 HAS MS General Exam General appearance: alert, in no apparent distress Head exam: Present: atraumatic, normocephalic, normal inspection Eye exam: Present: normal appearance, PERRL, EOMI. Absent: scleral icterus, conjunctival injection, periorbital swelling ENT exam: Present: normal exam, mucous membranes moist Neck exam: Present: normal inspection. Absent: tenderness, meningismus, lymphadenopathy Respiratory exam: Present: normal lung sounds bilaterally. Absent: respiratory distress, wheezes, rales, rhonchi, stridor Cardiovascular Exam: Present: regular rate, normal rhythm, normal heart sounds. Absent: systolic murmur, diastolic murmur, rubs, gallop, clicks GI/Abdominal exam: Present: soft, tenderness, normal bowel sounds. Absent: distended (right sided), guarding, rebound, rigid Extremities exam: Present: normal inspection, full ROM, normal capillary refill. Absent: tenderness, pedal edema, joint swelling, calf tenderness Back exam: Present: normal inspection Neurological exam: Present: alert, oriented X3, CN II-XII intact Psychiatric exam: Present: normal affect, normal mood Skin exam: Present: warm, dry, intact, normal color. Absent: rash Course Vital Signs 11/03/21 18:34 Temperature 98.0 F Pulse Rate 70 Respiratory 18 Rate Blood Pressure 136/81 O2 Sat by Pulse 97 Oximetry Medical Decision Making - Medical Decision Making On arrival the patient is placed into room 6. A thorough history and physical exam was performed per patient is initiated on 130 mL of normal saline per hour. He is also given a dose of Dilaudid for pain control. Laboratory studies are repeated. I did review the patient's CT from the other day. KUB is performed which reveals demonstrate any acute process. Patient reports to mild improvement in his pain with medication ministrations however states he continues. He does have persistent symptoms I did offer admission for GI consultation for the patient did agree to. I spoke with Philomena for immediately to agree to admit the patient. He was taken for stable condition - Lab Data Result diagrams: 11/09/21 09:35 11/09/21 09:32 Lab Results 11/03/21 11/03/21 11/03/21 Range/Units 20:43 20:43 20:43 WBC 7.0 (3.8-10.6) k/uL RBC 4.76 (4.30-5.90) m/uL Hgb 16.6 (13.0-17.5) gm/dL Hct 50.6 (39.0-53.0) % MCV 106.3 H (80.0-100.0) fL MCH 34.9 (25.0-35.0) pg MCHC 32.8 (31.0-37.0) g/dL RDW 14.0 (11.5-15.5) % Plt Count 162 (150-450) k/uL MPV 9.4 Neutrophils % 46 % Lymphocytes % 41 % Monocytes % 7 % Eosinophils % 2 % Basophils % 1 % Neutrophils # 3.2 (1.3-7.7) k/uL Lymphocytes # 2.9 (1.0-4.8) k/uL Monocytes # 0.5 (0-1.0) k/uL Eosinophils # 0.2 (0-0.7) k/uL Basophils # 0.1 (0-0.2) k/uL Macrocytosis Moderate PT 10.7 (9.0-12.0) sec INR 1.0 (<1.2) APTT 24.6 (22.0-30.0) sec Sodium 139 (137-145) mmol/L Potassium 4.0 (3.5-5.1) mmol/L Chloride 107 (98-107) mmol/L Carbon Dioxide 22 (22-30) mmol/L Anion Gap 10 mmol/L BUN 14 (9-20) mg/dL Creatinine 0.94 (0.66-1.25) mg/dL Est GFR (CKD-EPI)AfAm >90 (>60 ml/min/1.73 sqM) Est GFR (CKD-EPI)NonAf >90 (>60 ml/min/1.73 sqM) Glucose 83 (74-99) mg/dL Plasma Lactic Acid Tee (0.7-2.0) mmol/L Calcium 9.0 (8.4-10.2) mg/dL Total Bilirubin 0.3 (0.2-1.3) mg/dL AST 21 (17-59) U/L ALT 12 (4-49) U/L Alkaline Phosphatase 65 (38-126) U/L Troponin I (0.000-0.034) ng/mL Total Protein 6.8 (6.3-8.2) g/dL Albumin 3.9 (3.5-5.0) g/dL Lipase 72 (23-300) U/L 11/03/21 11/03/21 Range/Units 20:43 20:43 WBC (3.8-10.6) k/uL RBC (4.30-5.90) m/uL Hgb (13.0-17.5) gm/dL Hct (39.0-53.0) % MCV (80.0-100.0) fL MCH (25.0-35.0) pg MCHC (31.0-37.0) g/dL RDW (11.5-15.5) % Plt Count (150-450) k/uL MPV Neutrophils % % Lymphocytes % % Monocytes % % Eosinophils % % Basophils % % Neutrophils # (1.3-7.7) k/uL Lymphocytes # (1.0-4.8) k/uL Monocytes # (0-1.0) k/uL Eosinophils # (0-0.7) k/uL Basophils # (0-0.2) k/uL Macrocytosis PT (9.0-12.0) sec INR (<1.2) APTT (22.0-30.0) sec Sodium (137-145) mmol/L Potassium (3.5-5.1) mmol/L Chloride (98-107) mmol/L Carbon Dioxide (22-30) mmol/L Anion Gap mmol/L BUN (9-20) mg/dL Creatinine (0.66-1.25) mg/dL Est GFR (CKD-EPI)AfAm (>60 ml/min/1.73 sqM) Est GFR (CKD-EPI)NonAf (>60 ml/min/1.73 sqM) Glucose (74-99) mg/dL Plasma Lactic Acid Tee <0.5 L (0.7-2.0) mmol/L Calcium (8.4-10.2) mg/dL Total Bilirubin (0.2-1.3) mg/dL AST (17-59) U/L ALT (4-49) U/L Alkaline Phosphatase (38-126) U/L Troponin I <0.012 (0.000-0.034) ng/mL Total Protein (6.3-8.2) g/dL Albumin (3.5-5.0) g/dL Lipase (23-300) U/L - EKG Data EKG Comments: EKG demonstrates normal sinus rhythm with a ventricular rate of 62. KS interval 140. To rest 94. QTC is 391. No acute ST segment elevations or depressions concerning for ischemic changes Disposition Clinical Impression: Pancreatic duct dilated, Abdominal pain Disposition: ADMITTED IP TO THIS [facility] Condition: Stable Is patient prescribed a controlled substance at d/c from ED?: No Decision to Admit Reason: Admit from EC Decision Date: 11/03/21 Decision Time: 22:28
[2021-11-03] MEDS: SODIUM CHLORIDE 0.9% 1,000 ML IV SCH (22:50)
[2021-11-04] MEDS: HYDROmorphone 1 MG/ML 1 ML SYRINGE IVP PRN ×8 (00:09→21:31)
[2021-11-04 05:32] LABS: Appearance,Urine Clear (Clear); Bilirubin,Urine Negative (Negative); Blood,Urine Negative (Negative); Color,Urine Yellow; Glucose,Urine (UA) Negative (Negative); Ketones,Urine Negative (Negative); Leukocyte Esterase,Urine Negative (Negative); Nitrite,Urine Negative (Negative); PH, Urine 5.5 (5.0-8.0); Protein,Urine Negative (Negative); Specific Gravity,Urine 1.024 (1.001-1.035); Urobilinogen,Urine <2.0 mg/dL (<2.0)
[2021-11-04] MEDS: SODIUM CHLORIDE 0.9% 1,000 ML IV SCH ×3 (06:29→21:35)
[2021-11-04 06:45] LABS: African American GFR (CKD) >90 (>60 ml/min/1.73 sqM); Anion Gap 5 mmol/L; Blood Urea Nitrogen 12 mg/dL (9-20); Calcium 8.6 mg/dL (8.4-10.2); Carbon Dioxide 25 mmol/L (22-30); Chloride 108 mmol/L (98-107); Glucose 89 mg/dL (74-99); Non-African American GFR(CKD) >90 (>60 ml/min/1.73 sqM); Sodium 138 mmol/L (137-145)
[2021-11-04 06:51] LABS: Basophils # (A) 0.1 k/uL (0-0.2); Basophils % (A) 1 %; Eosinophils # (A) 0.2 k/uL (0-0.7); Eosinophils % (A) 2 %; HCT 50.3 % (39.0-53.0); HGB 16.7 gm/dL (13.0-17.5); Lymphocytes # (A) 2.6 k/uL (1.0-4.8); Lymphocytes % (A) 40 %; MCH 35.6 pg (25.0-35.0); MCHC 33.1 g/dL (31.0-37.0); MCV 107.6 fL (80.0-100.0); Macrocytosis Moderate; Monocytes # (A) 0.5 k/uL (0-1.0); Monocytes % (A) 8 %; Neutrophils % (A) 45 %; Platelet Count 159 k/uL (150-450); RBC 4.67 m/uL (4.30-5.90); RDW 14.1 % (11.5-15.5); WBC 6.5 k/uL (3.8-10.6)
[2021-11-04 08:09] LABS: Albumin 3.2 g/dL (3.5-5.0); Albumin/Globulin Ratio 1.2; Bilirubin,Unconjugated 0.3 mg/dL (0.0-1.1); Globulin 2.7 g/dL; Total Bilirubin 0.5 mg/dL (0.2-1.3); Total Protein 5.9 g/dL (6.3-8.2)
--- NOTE | 2021-11-04 09:18 | US ---
EXAMINATION TYPE: US gallbladder DATE OF EXAM: 11/04/2021 COMPARISON: CT dated 11/01/2021 CLINICAL HISTORY: RUQ pain. EXAM MEASUREMENTS: Liver Length: 16.2 cm Gallbladder Wall: 0.1 cm CBD: 0.5 cm Right Kidney: 10.1 x 4.3 x 4.5 cm Pancreas: obscured by overlying midline bowel gas Liver: wnl Gallbladder: wnl Evidence for sonographic Isaacs's sign: no CBD: visualized portions wnl, limited by overlying bowel gas Right Kidney: 3.3cm cyst superior pole but likely to be simple cystic, kidney shows normal cortical medullary differentiation. Punctate calcification seen at the lower pole on the CT scan is not seen o n today's ultrasound There is no ascites. IMPRESSION: Exam is limited. No abnormality evident to account for patient's symptoms.
--- NOTE | 2021-11-04 11:48 | P.HPIM ---
History of Present Illness This is a pleasant 46 years old male with past medical history of COPD, Deep Vein Thrombosis on anticoagulation, GERD, sciatica , pneumothorax x2, emphysema,DJD,KIDNEY STONES,HIATAL HERNIA, Anxiety, Depression 2 days ago, also patient was in the emergency room 2 days ago for abdominal pain in the left lower quadrant, CT of the abdomen and pelvis with contrast at that time on 11/01/2020 was showing: (No evidence for acute intra-abdominal process, moderately large main pancreatic duct at 4 mm of the pancreatic head along with an uncinate process hypodense area measuring 5 mm which may represent a side branch IPMN as per radiologist . This could be further evaluated with MRCP if clinically warranted Bilateral nonobstructing renal calculi and right renal cyst and diverticulosis) This time presents also with the same abdominal pain which is now for 5 days duration, and right upper quadrant area and to the level of the umbilicus on the right side, about 8-9/10 in severity, currently 6/10 after pain medication field like 'open bebe' as patient describes. He has a little nausea but no vomiting He has normal bowel movement yesterday morning He smokes about 1 pack per day and he was counseled to quit and he agrees and wants nicotine patch. He drinks alcohol occasionally once a week. And uses marijuana Vitas looks stable. Labs including CBC, INR, BMP and liver enzymes were unremarkable. Troponin negative, lactic acid is negative. No varus not detected. KUB: No acute abdominal process. EKG showing normal sinus rhythm at [address]-T changes, QTC 391 Lipase normal at 72 Urine analysis is not suspicious of infection 2 days ago At the emergency room and received Dilaudid and normal saline at 130 mL/h GI team were consulted from emergency room Review of Systems CONSTITUTIONAL: No fever, no malaise, no fatigue. HEENT: No recent visual problems or hearing problems. Denied any sore throat. CARDIOVASCULAR: No orthopnea, PND, no palpitations, no syncope. PULMONARY: No shortness of breath, no cough, no hemoptysis. GASTROINTESTINAL: No diarrhea, no vomiting, Normoactive bowel sounds. NEUROLOGICAL: No headaches, no weakness, no numbness. HEMATOLOGICAL: Denies any bleeding or petechiae. GENITOURINARY: Denies any burning micturition, frequency, or urgency. MUSCULOSKELETAL/RHEUMATOLOGICAL: Denies any joint pain, swelling, or any muscle pain. ENDOCRINE: Denies any polyuria or polydipsia. Past Medical History Past Medical History: Chest Pain / Angina, COPD, Deep Vein Thrombosis (DVT), GERD/Reflux Additional Past Medical History / Comment(s): sciatica , pneumothorax x2, emphysema,DJD,KIDNEY STONES,HIATAL HERNIA, DVT in heidy and left side of the neck, pt states he's borderline diabetic History of Any Multi-Drug Resistant Organisms: None Reported Past Surgical History: Heart Catheterization Additional Past Surgical History / Comment(s): left lung biopsy, BLEBS REMOVED, spontaneous pneumo X2 requitring c/t. HAD TUBES IN EAR CHILD, ENDOSCOPY Past Anesthesia/Blood Transfusion Reactions: No Reported Reaction Past Psychological History: Anxiety, Depression Additional Psychological History / Comment(s): pt uses marijuana. 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 NO SERVICE IN PAST. DEINES ANY HOME CARE SERVICES RECIVED, NO MEDICAL EQUIPMENT. Smoking Status: Current every day smoker Past Alcohol Use History: Occasional Additional Past Alcohol Use History / Comment(s): STARTED SMOKING AT AGE 12- SMOKES 1 ppd, stated DRINKS LESS THAN 14 DRINKS PER WEEK Past Drug Use History: Marijuana - Past Family History Father Family Medical History: Cancer, COPD, Hyperlipidemia, Hypertension, Myocardial Infarction ([place]), Renal Disease Additional Family Medical History / Comment(s): DAD AT AGE 67- EMPHYSEMA, VALVE REPLACEMENT 1983, of carcinoma "CUPS" Mother Additional Family Medical History / Comment(s): MOM IS 70 HAS MS Medications and Allergies Home Medications Medication Instructions Recorded Confirmed Type Dicyclomine [Bentyl] 20 mg PO TID PRN #20 tablet 11/01/21 11/03/21 Rx Ibuprofen [Motrin Ib] 800 mg PO Q8H PRN 11/03/21 11/03/21 History Allergies Allergy/AdvReac Type Severity Reaction Status Date / Time morphine AdvReac Unknown Hallucinati Verified 11/03/21 22:49 ons Physical Exam Vitals: Vital Signs Temp Pulse Resp BP Pulse Ox 11/03/21 23:10 18 11/03/21 18:34 98.0 F 70 18 136/81 97 Intake and Output 11/03/21 11/03/21 11/04/21 14:59 22:59 06:59 Other: Voiding Method Toilet Weight 77.111 kg 77.111 kg GENERAL: The patient is alert and oriented x3, not in any acute distress. Well developed, well nourished. HEENT: Pupils are round and equally reacting to light. EOMI. No scleral icterus. No conjunctival pallor. Normocephalic, atraumatic. No pharyngeal erythema. No thyromegaly. CARDIOVASCULAR: S1 and S2 present. No murmurs, rubs, or gallops. PULMONARY: Chest is clear to auscultation, no wheezing or crackles. -ABDOMEN: Soft, RUQ tenderness, no rebound tenderness and at the level of the umbilicus on the right flank side, nondistended, normoactive bowel sounds. No palpable organomegaly. MUSCULOSKELETAL: No joint swelling or deformity. EXTREMITIES: No cyanosis, clubbing, or pedal edema. NEUROLOGICAL: Gross neurological examination did not reveal any focal deficits. SKIN: No rashes. No petechiae Results CBC & Chem 7: 11/04/21 06:15 11/04/21 06:15 Labs: Abnormal Lab Results - Last 24 Hours (Table) 11/03/21 11/03/21 Range/Units 20:43 20:43 MCV 106.3 H (80.0-100.0) fL Plasma Lactic Acid Tee <0.5 L (0.7-2.0) mmol/L Thrombosis Risk Factor Assmnt - Choose All That Apply Each Factor Represents 1 point: Abnormal pulmonary function (COPD), Age 41-60 years, Obesity (BMI >25) Each Risk Factor Represents 3 Points: History of DVT/PE Thrombosis Risk Factor Assessment Total Risk Factor Score: 6 Thrombosis Risk Factor Assessment Level: High Risk Assessment and Plan Assessment: Moderately enlarged pancreatic duct Bilateral nonobstructing renal calculi Diverticulosis without diverticulitis Substance abuse with marijuana Nicotine dependence Right kidney cyst COPD, no acute exacerbation History of GERD History of deep venous thrombosis, not on anticoagulation History of pneumothorax 2 History of kidney stones History of hiatal hernia History of anxiety depression, not an active issue Plan: This is a pleasant 46 years old male who presents with abdominal pain and CT evidence of dilated pancreatic duct GI service consulted Keep patient nothing by mouth Pain management and IV hydration Labs and medication were reviewed.. Continue same treatment. Continue with symptomatic treatment. Resume home medication. Monitor lytes and vitals. DVT and GI prophylaxis. Further recommendationsas per clinical course of the patient DVT prophylaxis: Subcutaneous heparin GI Prophylaxis: Pepcid PT/OT: Pending Prognosis is guarded
[2021-11-04] MEDS: NICOTINE 21MG/24HR PATCH TRANSDERM SCH (11:51)
[2021-11-04] MEDS: ONDANSETRON 4 MG/2 ML VIAL IVP PRN (13:54)
--- NOTE | 2021-11-04 16:39 | P.CONS ---
History of Present Illness - Reason for Consult Consult date: 11/04/21 Right upper quadrant pain Requesting physician: Zoila Sousa - Chief Complaint Abdominal pain - History of Present Illness This is a 46-year-old male who presented to the emergency department yesterday evening with complaints of right upper quadrant abdominal pain. He had been seen in the emergency room 3 days ago she's been with similar complaints. At that time he had a CT of the abdomen and pelvis that demonstrated some mild pancreatic duct dilation. The report stated no evidence of acute intra- abdominal process with mildly enlarged main pancreatic duct at 4 mm in the pancreatic head along with uncinate process hypodense area measuring 5 mm which may represent a sidebranch IPM and. This could be further evaluated with MRCP if clinically warranted. There were bilateral nonobstructing renal calculi and a right renal simple appearing cyst. Colonic diverticulosis was noted as well. His pain has continued and began to worsen over the last day. His been associated with nausea but no vomiting. He denies any previous history of pancreatitis. He denies any alcohol use. He does take Motrin frequently. An EGD 5-6 years ago. He has no history of cholecystectomy or gallbladder problems. He does state his father has a history of pancreatic cancer. Admitting labs were unremarkable. Repeat labs WBC 6.5 hemoglobin 16.7 platelet count 159,000 total bilirubin 0.5 AST 21 ALT 12 alkaline phosphatase 59 lipase was 72 on admission. Review of Systems REVIEW OF SYSTEMS: CARDIOPULMONARY: No chest pain or shortness of breath. Gastrointestinal: Right upper quadrant pain. Nausea no vomiting. No hematemesis, coffee-ground emesis. No rectal bleeding, or melena. GENITOURINARY: No dysuria or hematuria. MUSCULOSKELETAL: Reports normal range of motion., Joint pain. SKIN: No rashes. No jaundice. ENDOCRINE: No chills, fevers. No excessive weight gain or loss. No polydipsia or polyuria. PSYCHIATRIC: Unremarkable. NEUROLOGY: No change in mental status. Denies dizziness, headache. ENT: Vision unremarkable. CONSTITUTIONAL: No recent weight loss. No fever, chills, night sweats. Past Medical History Past Medical History: Chest Pain / Angina, COPD, Deep Vein Thrombosis (DVT), GERD/Reflux Additional Past Medical History / Comment(s): sciatica , pneumothorax x2, emphysema,DJD,KIDNEY STONES,HIATAL HERNIA, DVT in heidy and left side of the neck, pt states he's borderline diabetic History of Any Multi-Drug Resistant Organisms: None Reported Past Surgical History: Heart Catheterization Additional Past Surgical History / Comment(s): left lung biopsy, BLEBS REMOVED, spontaneous pneumo X2 requitring c/t. HAD TUBES IN EAR CHILD, ENDOSCOPY Past Anesthesia/Blood Transfusion Reactions: No Reported Reaction Past Psychological History: Anxiety, Depression Additional Psychological History / Comment(s): pt uses marijuana. 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 NO SERVICE IN PAST. DEINES ANY HOME CARE SERVICES RECIVED, NO MEDICAL EQUIPMENT. Smoking Status: Current every day smoker Past Alcohol Use History: Occasional Additional Past Alcohol Use History / Comment(s): STARTED SMOKING AT AGE 12- SMOKES 1 ppd, stated DRINKS LESS THAN 14 DRINKS PER WEEK Past Drug Use History: Marijuana - Past Family History Father Family Medical History: Cancer, COPD, Hyperlipidemia, Hypertension, Myocardial Infarction ([place]), Renal Disease Additional Family Medical History / Comment(s): DAD AT AGE 67- EMPHYSEMA, VALVE REPLACEMENT 1983, of carcinoma "CUPS" Mother Additional Family Medical History / Comment(s): MOM IS 70 HAS MS Medications and Allergies Home Medications Medication Instructions Recorded Confirmed Type Dicyclomine [Bentyl] 20 mg PO TID PRN #20 tablet 11/01/21 11/03/21 Rx Ibuprofen [Motrin Ib] 800 mg PO Q8H PRN 11/03/21 11/03/21 History Allergies Allergy/AdvReac Type Severity Reaction Status Date / Time morphine AdvReac Unknown Hallucinati Verified 11/03/21 22:49 ons Physical Exam Vitals: Vital Signs Temp Pulse Pulse Resp BP BP Pulse Ox 11/04/21 08:36 16 11/04/21 07:00 97.9 F 66 16 133/91 96 11/04/21 02:00 97.7 F 61 16 119/71 93 L 11/03/21 23:10 18 11/03/21 18:34 98.0 F 70 18 136/81 97 Intake and Output 11/03/21 11/04/21 11/04/21 22:59 06:59 14:59 Other: Voiding Method Toilet Toilet Urinal Urinal # Voids 1 Weight 77.111 kg 77.111 kg General appearance: The patient is alert, oriented, appears in no acute distress. HET: Head is normocephalic and atraumatic. Conjunctiva pink. Sclera anicteric. Neck: Supple without lymphadenopathy. Trachea midline. Heart: S1 S2. Regular rate and rhythm. Lungs: Clear to auscultation. Abdomen: Soft, epigastric tenderness, nondistended with bowel sounds. No guarding or rigidity. Skin: No rashes. No jaundice. Extremities: Normal skin color and turgor. No pedal edema. Neurological: No focal deficits. Alert and oriented x3. Results CBC & Chem 7: 11/04/21 06:15 11/04/21 06:15 Labs: Abnormal Lab Results - Last 24 Hours (Table) 11/03/21 11/03/21 11/04/21 Range/Units 20:43 20:43 06:15 MCV 106.3 H 107.6 H (80.0-100.0) fL MCH 35.6 H (25.0-35.0) pg Chloride (98-107) mmol/L Plasma Lactic Acid Tee <0.5 L (0.7-2.0) mmol/L Total Protein (6.3-8.2) g/dL Albumin (3.5-5.0) g/dL 11/04/21 11/04/21 Range/Units 06:15 06:15 MCV (80.0-100.0) fL MCH (25.0-35.0) pg Chloride 108 H (98-107) mmol/L Plasma Lactic Acid Tee (0.7-2.0) mmol/L Total Protein 5.9 L (6.3-8.2) g/dL Albumin 3.2 L (3.5-5.0) g/dL US - abdomen: report reviewed (Gallbladder ultrasound the shows no abnormality evident. Gallbladder within normal limits liver within normal limits pancreas obscured by gas CBD 0.5 cm.) Assessment and Plan (1) Right upper quadrant abdominal pain Narrative/Plan: 38-year-old male who presented to the emergency department yesterday with complaints of right upper quadrant pain. Patient had been seen in emergency department 3 days prior with similar complaints. At that time he had a CT of the abdomen done that showed no evidence of acute intra-abdominal process with mildly enlarged main pancreatic duct at 4 mm in the pancreatic head along with uncinate process hypodense area measuring 5 mm which may represent a sidebranch IPM and. This could be further evaluated with MRCP if clinically warranted. There were bilateral nonobstructing renal calculi and a right renal simple appearing cyst. Colonic diverticulosis was noted as well. The patient was sent home at that time and told to follow-up with gastroenterology as needed. On admission LFTs are unremarkable, repeat labs again unremarkable with no elevation in LFTs. Lipase was normal at 72. He continues to have this right upper quadrant pain associated with nausea but no vomiting. Gallbladder ultrasound was ordered again no acute abnormality evident to account for patient's symptoms. MRCP will be ordered for further evaluation of possible pancreatic ductal dilation. Other possible etiologies of epigastric pain can be gastritis or related to possible GERD or peptic ulcer disease. Patient does use NSAIDs on a regular basis. Current Visit: Yes Status: Acute Code(s): R10.11 - RIGHT UPPER QUADRANT PAIN SNOMED Code(s): 137830357 (2) Pancreatic duct dilated Current Visit: Yes Status: Acute Code(s): K86.89 - OTHER SPECIFIED DISEASES OF PANCREAS SNOMED Code(s): 241943325 Plan: 1. Continue symptomatic and supportive care 2. Antiemetics as needed 3. Protonix 40 mg daily 4. Gallbladder ultrasound ordered and reviewed 5. Repeat LFTs daily 6. MRCP ordered for further evaluation of pancreatic duct 7. No plans for endoscopic evaluation at this time Thank you for this consultation, we will continue to follow. Dr. Roseanne Bhandari I agree with the dictator's note, documented as a scribe by Lidia Busch.
[2021-11-04] MEDS: MELATONIN 3 MG TABLET PO PRN (22:41)
[2021-11-05] MEDS: HYDROmorphone 1 MG/ML 1 ML SYRINGE IVP PRN ×5 (00:32→12:55)
[2021-11-05] MEDS: SODIUM CHLORIDE 0.9% 1,000 ML IV SCH ×3 (05:15→23:05)
[2021-11-05] MEDS: NICOTINE 21MG/24HR PATCH TRANSDERM SCH (07:05)
[2021-11-05 09:45] LABS: ALT 11 U/L (4-49); AST 23 U/L (17-59); African American GFR (CKD) >90 (>60 ml/min/1.73 sqM); Albumin 3.7 g/dL (3.5-5.0); Albumin/Globulin Ratio 1.4; Alkaline Phosphatase 66 U/L (38-126); Anion Gap 4 mmol/L; Blood Urea Nitrogen 8 mg/dL (9-20); Calcium 9.2 mg/dL (8.4-10.2); Carbon Dioxide 26 mmol/L (22-30); Chloride 107 mmol/L (98-107); Globulin 2.7 g/dL; Glucose 74 mg/dL (74-99); Non-African American GFR(CKD) >90 (>60 ml/min/1.73 sqM); Potassium 4.7 mmol/L (3.5-5.1); Sodium 137 mmol/L (137-145); Total Bilirubin 0.7 mg/dL (0.2-1.3); Total Protein 6.4 g/dL (6.3-8.2)
--- NOTE | 2021-11-05 12:54 | MR ---
EXAMINATION TYPE: MR MRCP DATE OF EXAM: 11/05/2021 COMPARISON: CT abdomen and pelvis 4 days ago. Gallbladder ultrasound from yesterday. HISTORY: RUQ pain, pacreatic duct dilation. Abnormal CT. Standard multiplanar, multisequence MRI departmental protocol Multiplanar, multisequence images of the abdomen were acquired without contrast. Thin and thick slice MRCP imaging created on an independent workstation. FINDINGS: Liver/gallbladder/pancreas/biliary system: Liver remains normal in size. Occasional scattered round t hin-walled cysts throughout the liver is present. Approximately 10-15 are identified on MRI better se en than recent CT and ultrasound measuring up to 6 mm on coronal images 9 and 33 respectively. No con cerning solid or cystic intrahepatic mass. No intraluminal gallstones. No intrahepatic or extrahepati c biliary dilatation. Pancreas remains normal in size. Pancreatic duct slightly more prominent in the head redemonstrated. This measures up to just greater than 3 mm MRCP image 64. No filling defect near duodenal ampulla. Pa ncreatic duct empties just inferior to the distal common bile duct. I do not see definitive thin-wall ed cyst or cystic lesion in the uncinate process of the pancreas 2 correlate to the 4 to 5 mm lesion noted on CT axial image 30 and coronal image 39. Based on size of lesion strongly presumed benign. A 4 mm thin-walled cyst seen on MRCP image 52 is difficult to actually correlate as there is more motio n artifact on MRI versus CT. No concerning solid or cystic mass in the pancreas. Other: Lung bases are clear. There is a partially exophytic 3.5 cm thin-walled cyst from the upper po le of the right kidney. No hydronephrosis bilaterally. Spleen and both adrenal glands appear within n ormal limits. No suspicious small or large bowel dilatation. Osseous structures are intact. IMPRESSION: Pancreatic duct minimally dilated in the head without obstructing mass or calculus or obv ious stricture. Tiny 4 to 5 mm thin-walled cyst in the uncinate process of pancreas on CT are not rose jewel seen on MRI. Lesions almost certainly benign in etiology. Annual imaging surveillance advised.
[2021-11-05] MEDS ORDERED: ACETAMINOPHEN TAB 325 MG TAB PO PRN ×2 (14:13→23:01)
--- NOTE | 2021-11-05 15:35 | P.PN ---
Subjective Progress Note Date: 11/05/21 This is a 46-year-old male who presented to the emergency department yesterday evening with complaints of right upper quadrant abdominal pain. He had been seen in the emergency room 3 days ago she's been with similar complaints. At that time he had a CT of the abdomen and pelvis that demonstrated some mild pancreatic duct dilation. The report stated no evidence of acute intra- abdominal process with mildly enlarged main pancreatic duct at 4 mm in the pancreatic head along with uncinate process hypodense area measuring 5 mm which may represent a sidebranch IPM and. This could be further evaluated with MRCP if clinically warranted. There were bilateral nonobstructing renal calculi and a right renal simple appearing cyst. Colonic diverticulosis was noted as well. His pain has continued and began to worsen over the last day. His been associated with nausea but no vomiting. He denies any previous history of pancreatitis. He denies any alcohol use. He does take Motrin frequently. An EGD 5-6 years ago. He has no history of cholecystectomy or gallbladder problems. He does state his father has a history of pancreatic cancer. Admitting labs were unremarkable. 11/05/2021 Patient seen in follow-up. LFTs remain unremarkable. Patient had ultrasound of the gallbladder yesterday which was normal. MRCP today shows pancreatic duct minimally dilated in the head without obstructing mass or calculus or obvious stricture. Tiny 4-5 mm thin-walled cyst in the canal process of pancreas on CT not clearly seen on MRI. Lesions almost certainly benign in etiology. Patient states he's still having some abdominal pain mostly in the mid to right lower abdomen. States his last bowel movement was this morning. Denies any nausea or vomiting. Objective - Vital Signs Vital signs: Vital Signs Temp 97.7 F 11/05/21 07:00 Pulse 69 11/05/21 07:00 Resp 16 11/05/21 07:00 BP 125/81 11/05/21 07:00 Pulse Ox 93 L 11/05/21 07:00 Intake & Output 11/04/21 11/05/21 11/05/21 18:59 06:59 18:59 Intake Total 700 500 Output Total 500 Balance 700 0 Intake: IV 700 Sodium Chloride 0.9% 1, 700 000 ml @ 130 mls/hr IV . [id number] [facility] Rx#:[id number] Oral 500 Output: Urine 500 Other: Voiding Method Toilet Toilet Toilet Urinal Urinal Urinal # Voids 2 - Exam General appearance: The patient is alert, oriented, appears in no acute distress. HET: Head is normocephalic and atraumatic. Conjunctiva pink. Sclera anicteric. Neck: Supple without lymphadenopathy. Abdomen: Soft, nontender, nondistended with bowel sounds. No guarding or rigidity. Extremities: Normal skin color and turgor. No pedal edema Skin: No rashes, no jaundice Neurological: No focal deficits. Alert and oriented x-3. - Labs CBC & Chem 7: 11/04/21 06:15 11/05/21 08:59 Labs: Abnormal Lab Results - Last 24 Hours (Table) 11/05/21 Range/Units 08:59 BUN 8 L (9-20) mg/dL Assessment and Plan (1) Right upper quadrant abdominal pain Narrative/Plan: 38-year-old male who presented to the emergency department yesterday with complaints of right upper quadrant pain. Patient had been seen in emergency department 3 days prior with similar complaints. At that time he had a CT of the abdomen done that showed no evidence of acute intra-abdominal process with mildly enlarged main pancreatic duct at 4 mm in the pancreatic head along with uncinate process hypodense area measuring 5 mm which may represent a sidebranch IPM and. This could be further evaluated with MRCP if clinically warranted. There were bilateral nonobstructing renal calculi and a right renal simple appearing cyst. Colonic diverticulosis was noted as well. The patient was sent home at that time and told to follow-up with gastroenterology as needed. On admission LFTs are unremarkable, repeat labs again unremarkable with no elevation in LFTs. Lipase was normal at 72. He continues to have this right upper quadrant pain associated with nausea but no vomiting. Gallbladder ultrasound was ordered again no acute abnormality evident to account for patient's symptoms. MRCP will be ordered for further evaluation of possible pancreatic ductal dilation. Other possible etiologies of epigastric pain can be gastritis or related to possible GERD or peptic ulcer disease. Patient does use NSAIDs on a regular basis. TABLEAU REPORT DEVELOPER ordered and reviewed. No significant findings. 4-5 mm thin-walled cyst in the process of pancreas on CT not clearly seen on the MRI. There is no obvious stricture or obstructing mass. There is no need for further imaging or endoscopic evaluation. Current Visit: Yes Status: Acute Code(s): R10.11 - RIGHT UPPER QUADRANT PAIN SNOMED Code(s): 085717386 (2) Pancreatic duct dilated Current Visit: Yes Status: Acute Code(s): K86.89 - OTHER SPECIFIED DISEASES OF PANCREAS SNOMED Code(s): 878692830 Plan: 1. Continue symptomatic and supportive care 2. Antiemetics as needed 3. Protonix 40 mg daily 4. Gallbladder ultrasound ordered and reviewed 5. MRCP ordered and reviewed 6. No plans for endoscopic evaluation 7. Will start on dicyclomine Thank you for this consultation, patient is cleared for discharge from gastroenterology Dr. Roseanne Bhandari I agree with the dictator's note, documented as a scribe by Lidia Busch.
[2021-11-05] MEDS: DICYCLOMINE 20 MG TAB PO PRN (16:28)
[2021-11-05] MEDS: ONDANSETRON 4 MG/2 ML VIAL IVP PRN (17:32)
[2021-11-05] MEDS ORDERED: HYDROmorphone 1 MG/ML 1 ML SYRINGE IVP STA (18:26)
[2021-11-05] MEDS: LIDOCAINE 5% PATCH TOPICAL SCH (19:17)
--- NOTE | 2021-11-05 19:48 | P.PN ---
Subjective This is a pleasant 46 years old male with past medical history of COPD, Deep Vein Thrombosis on anticoagulation, GERD, sciatica , pneumothorax x2, emphysema,DJD,KIDNEY STONES,HIATAL HERNIA, Anxiety, Depression 2 days ago, also patient was in the emergency room 2 days ago for abdominal pain in the left lower quadrant, CT of the abdomen and pelvis with contrast at that time on 11/01/2020 was showing: (No evidence for acute intra-abdominal process, moderately large main pancreatic duct at 4 mm of the pancreatic head along with an uncinate process hypodense area measuring 5 mm which may represent a side branch IPMN as per radiologist . This could be further evaluated with MRCP if clinically warranted Bilateral nonobstructing renal calculi and right renal cyst and diverticulosis) This time presents also with the same abdominal pain which is now for 5 days duration, and right upper quadrant area and to the level of the umbilicus on the right side, about 8-9/10 in severity, currently 6/10 after pain medication field like 'open bebe' as patient describes. He has a little nausea but no vomiting He has normal bowel movement yesterday morning He smokes about 1 pack per day and he was counseled to quit and he agrees and wants nicotine patch. He drinks alcohol occasionally once a week. And uses marijuana Vitas looks stable. Labs including CBC, INR, BMP and liver enzymes were unremarkable. Troponin negative, lactic acid is negative. No varus not detected. KUB: No acute abdominal process. EKG showing normal sinus rhythm at [address]-T changes, QTC 391 Lipase normal at 72 Urine analysis is not suspicious of infection 2 days ago At the emergency room and received Dilaudid and normal saline at 130 mL/h GI team were consulted from emergency room 11/05/2021 Patient today underwent MRCP which basically was negative Pancreatic duct minimally dilated in the head without obstructing mass or calculus or obvious stricture. 94-5 mm thin-walled cyst in the uncinate process of pancreas on CT are not clearly seen on MRI. Lesions almost certainly benign in etiology. Annual imaging surveillance advised, I informed the patient about the results of the MRCP and the recommendation for annual surveillance and monitoring and he verbalized understanding and acceptance to me With negative MRCP and CT of the abdomen and pelvis, as well as upper quadrant ultrasound, really there is no organic reason found for patient symptoms and pain despite extensive workup , his abdomen examination is benign and soft. It could be conversion disorder, psychological or drug seeking defect. Actually the patient was able to eat his old lunch 100% today with no difficulties. He had regular bowel movement GI service cleared The patient for discharge Patient also has bilateral kidney stones but likely the cause of the pain as they have different characteristics and they are in different locations. Besides his urine analysis is completely normal. On reviewing the chart patient has history of multiple admissions or ER visits with pain, like abdominal pain, chest pain, throat pain, shoulder pain, cervical pain, hand and wrist pain, headache. We will monitor 24 hours and possible discharge in the morning. Try to avoid narcotics as they have more risks than benefit for example but not limited to addiction, constipation, respiratory depression, and/or . Objective - Vital Signs Vital signs: Vital Signs Temp 97.7 F 11/05/21 07:00 Pulse 69 11/05/21 07:00 Resp 16 11/05/21 07:00 BP 125/81 11/05/21 07:00 Pulse Ox 93 L 11/05/21 07:00 Intake & Output 11/04/21 11/05/21 11/05/21 18:59 06:59 18:59 Intake Total 700 500 Output Total 500 Balance 700 0 Intake: IV 700 Sodium Chloride 0.9% 1, 700 000 ml @ 130 mls/hr IV . Q7H42M [facility] Rx#:[id number] Oral 500 Output: Urine 500 Other: Voiding Method Toilet Toilet Toilet Urinal Urinal Urinal # Voids 2 - Exam GENERAL: The patient is alert and oriented x3, not in any acute distress. Well developed, well nourished. HEENT: Pupils are round and equally reacting to light. EOMI. No scleral icterus. No conjunctival pallor. Normocephalic, atraumatic. No pharyngeal erythema. No thyromegaly. CARDIOVASCULAR: S1 and S2 present. No murmurs, rubs, or gallops. PULMONARY: Chest is clear to auscultation, no wheezing or crackles. -ABDOMEN: Soft, tenderness in RUQ with no rebound tenderness or guarding, nondistended, normoactive bowel sounds. No palpable organomegaly. MUSCULOSKELETAL: No joint swelling or deformity. EXTREMITIES: No cyanosis, clubbing, or pedal edema. NEUROLOGICAL: Gross neurological examination did not reveal any focal deficits. SKIN: No rashes. no petechiae. - Labs CBC & Chem 7: 11/04/21 06:15 11/05/21 08:59 Labs: Abnormal Lab Results - Last 24 Hours (Table) 11/05/21 Range/Units 08:59 BUN 8 L (9-20) mg/dL Assessment and Plan Assessment: Right upper quadrant abdominal pain with no organic reason despite extensive workup. Drug seeking behavior versus irritable bowel syndrome is suspected Moderately enlarged pancreatic duct, however MRCP showed only minimally dilated pancreatic duct that would not explain the patient's symptoms Bilateral nonobstructing renal calculi. With normal urinalysis. This could not explain the patient's symptoms as well Diverticulosis without diverticulitis . Substance abuse with marijuana Nicotine dependence Right kidney cyst COPD, no acute exacerbation History of GERD History of deep venous thrombosis, not on anticoagulation History of pneumothorax 2 History of kidney stones History of hiatal hernia History of anxiety depression, not an active issue Plan: This is a pleasant 46 years old male who presents with abdominal pain and CT evidence of dilated pancreatic duct GI service consulted and they cleared the patient for discharge Patient tolerated diet very well Pain management with gallstone avoid narcotics. Tylenol Bentyl and lidocaine patch for his possible irritable bowel syndrome Labs and medication were reviewed.. Continue same treatment. Continue with symptomatic treatment. Resume home medication. Monitor lytes and vitals. DVT and GI prophylaxis. Further recommendations as per clinical course of the patient DVT prophylaxis: Subcutaneous heparin GI Prophylaxis: Pepcid Possible discharge in 24-48 hours remained stable and improving
[2021-11-05] MEDS ORDERED: NICOTINE 21MG/24HR PATCH TRANSDERM STA (20:18)
[2021-11-05] MEDS ORDERED: KETOROLAC 30 MG/ML 1 ML VIAL IVP STA (22:59)
[2021-11-06] MEDS: LIDOCAINE 5% PATCH TOPICAL SCH ×2 (08:49→08:56)
[2021-11-06] MEDS: NICOTINE 21MG/24HR PATCH TRANSDERM SCH (08:52)
[2021-11-06] MEDS: IBUPROFEN 600 MG TAB PO PRN ×2 (09:02→17:14)
[2021-11-06] MEDS ORDERED: KETOROLAC 30 MG/ML 1 ML VIAL IVP STA (13:31)
[2021-11-06] MEDS: ONDANSETRON 4 MG/2 ML VIAL IVP PRN (14:02)
--- NOTE | 2021-11-06 15:28 | P.GSCN ---
History of Present Illness Consult date: 11/06/21 History of present illness: CHIEF COMPLAINT: Abdominal pain HISTORY OF PRESENT ILLNESS: This is a 46-year-old male who presented to the ER with complaints of right sided abdominal pain 1 week. Patient also reporting some lower back pain. Denies any pain down into the groin. Patient reports that his pain is severe. He is in tears. Does report a heating pad helps with pain. Patient had a CAT scan completed outpatient that had shown mildly enlarged pancreatic duct and bilateral kidney stones measuring 3 mm nonobstructing. Patient evaluated by GI service who proceeded with an MRCP that showed pancreatic duct minimally dilated in the head without obstructing mass or calculus or obvious stricture. Tiny 4-5mm thin-walled cysts in the unicate process of the pancreas on CT are not clearly seen on MRI. Lesions almost certainly benign etiology. Annual imaging surveillance advised. Patient had abdominal ultrasound completed which was negative. No evidence of gallstones. Patient denies any nausea or vomiting. Denies any change in bowel movements. Denies any urinary symptoms. He's afebrile. He's been seen evaluated by GI service they have cleared him for discharge. Patient does use NSAIDs daily. Past surgical history includes a hiatal hernia repair several years ago. Denies any fever, chills or sweats. PAST MEDICAL HISTORY: Spontaneous Pneumothorax 2, COPD, DVT, GERD, kidney stones, anxiety and depression PAST SURGICAL HISTORY: Hiatal hernia repair MEDICATIONS: See list. ALLERGIES: See list. SOCIAL HISTORY: Marijuana use. Nicotine dependence. Working on Smoking cessation. REVIEW OF SYSTEMS: CONSTITUTIONAL: Denies fever or chills. HEENT: Denies blurred vision, vision changes, or eye pain. Denies hemoptysis CARDIOVASCULAR: Denies chest pain or pressure. RESPIRATORY: No shortness of breath. GASTROINTESTINAL: See HPI for pertinent findings HEMATOLOGIC: Denies bleeding disorders. GENITOURINARY: Denies any blood in urine or increased urinary frequency. SKIN: Denies pruitis. Denies rash. PHYSICAL EXAM: VITAL SIGNS: Reviewed GENERAL: Well-developed in no acute distress. HEENT: No sclera icterus. Extraocular movements grossly intact. Moist buccal mucosa. Head is atraumatic, normocephalic. No nasal drainage. ABDOMEN: Soft. Nondistended. Right-sided abdominal tenderness. NEUROLOGIC: Alert and oriented. Cranial nerves II through XII grossly intact. LABORATORY DATA: WBC is 6.5 hemoglobin 16.7 platelets 159 Sodium 137 potassium 4.7 creatinine 0.97 LFTs normal Lipase 72 Urinalysis negative COVID-19 not detected IMAGING: Gallbladder ultrasound no abnormality evident MRCP that showed pancreatic duct minimally dilated in the head without obstructing mass or calculus or obvious stricture. Tiny 4-5mm thin-walled cysts in the unicate process of the pancreas on CT are not clearly seen on MRI. Lesions almost certainly benign etiology. Annual imaging surveillance advised. Computed tomography scan abdomen and pelvis from 11/01/2021 did demonstrate no evidence for acute intra-abdominal process. Mildly enlarged main pancreatic duct at 4 mm in the pancreatic head along with a uncinate process hypodense area measuring 5 mm and 8H May represent a side branch IPMN. This could be further evaluated with MRCP. bilateral nonobstructive renal calculi. Right renal simple appearing cyst. Colonic diverticulosis. ASSESSMENT: 1. Right-sided abdominal tenderness 2. Minimally dilated pancreatic duct evaluated by GI service. No evidence of mass, stricture or stone noted on MRCP 3. Tiny cysts in the pancreas most likely benign as noted on MRCP 4. Nonobstructing bilateral kidney stones possibly contributing to patient's right-sided abdominal pain PLAN: -Plan for EGD on 11/09/[address] Ram for evaluation of abdominal pain and possible gastritis -check HIDA scan today to rule out any gallbladder dysfunction -Agree with urology consult for evaluation of kidney stones -Continue supportive care Thank you for this consultation Physician Cream Hauler note has been reviewed by physician. Signing provider agrees with the documented findings, assessment, and plan of care. Past Medical History Past Medical History: Chest Pain / Angina, COPD, Deep Vein Thrombosis (DVT), GERD/Reflux Additional Past Medical History / Comment(s): sciatica , pneumothorax x2, emphysema,DJD,KIDNEY STONES,HIATAL HERNIA, DVT in heidy and left side of the neck, pt states he's borderline diabetic History of Any Multi-Drug Resistant Organisms: None Reported Past Surgical History: Heart Catheterization Additional Past Surgical History / Comment(s): left lung biopsy, BLEBS REMOVED, spontaneous pneumo X2 requitring c/t. HAD TUBES IN EAR CHILD, ENDOSCOPY Past Anesthesia/Blood Transfusion Reactions: No Reported Reaction Past Psychological History: Anxiety, Depression Additional Psychological History / Comment(s): pt uses marijuana. 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 NO SERVICE IN PAST. DEINES ANY HOME CARE SERVICES RECIVED, NO MEDICAL EQUIPMENT. Smoking Status: Current every day smoker Past Alcohol Use History: Occasional Additional Past Alcohol Use History / Comment(s): STARTED SMOKING AT AGE 12-SMOKES 1 ppd, stated DRINKS LESS THAN 14 DRINKS PER WEEK Past Drug Use History: Marijuana - Past Family History Father Family Medical History: Cancer, COPD, Hyperlipidemia, Hypertension, Myocardial Infarction ([place]), Renal Disease Additional Family Medical History / Comment(s): DAD AT AGE 67- EMPHYSEMA, VALVE REPLACEMENT 1983, of carcinoma "CUPS" Mother Additional Family Medical History / Comment(s): MOM IS 70 HAS MS Medications and Allergies Home Medications Medication Instructions Recorded Confirmed Type Acetaminophen Tab [Tylenol] 650 mg PO Q6HR PRN 7 Days #15 tab 11/06/21 Rx Dicyclomine [Bentyl] 20 mg PO QID PRN #60 tab 11/06/21 Rx Ibuprofen [Motrin] 600 mg PO Q8HR PRN 3 Days #10 tab 11/06/21 Rx Lidocaine 5% Patch [Lidoderm 5% 1 patch TOPICAL DAILY #3 patch 11/06/21 Rx Patch] Ondansetron [Zofran] 4 mg PO Q8HR PRN 2 Days #8 tab 11/06/21 Rx Allergies Allergy/AdvReac Type Severity Reaction Status Date / Time morphine AdvReac Unknown Hallucinati Verified 11/03/21 22:49 ons Surgical - Exam Vital Signs Temp Pulse Resp BP Pulse Ox 98.0 F 70 18 136/81 97 11/03/21 18:34 11/03/21 18:34 11/03/21 18:34 11/03/21 18:34 11/03/21 18:34 Results - Labs 11/04/21 06:15 11/05/21 08:59
[2021-11-06] MEDS: SODIUM CHLORIDE 0.9% 1,000 ML IV SCH (15:55)
--- NOTE | 2021-11-06 17:07 | P.PN ---
Subjective Progress Note Date: 11/06/21 Principal diagnosis: Abdominal Pain This is a 46-year-old male who presented to the emergency department yesterday evening with complaints of right upper quadrant abdominal pain. He had been seen in the emergency room 3 days ago she's been with similar complaints. At that time he had a CT of the abdomen and pelvis that demonstrated some mild pancreatic duct dilation. The report stated no evidence of acute intra- abdominal process with mildly enlarged main pancreatic duct at 4 mm in the pancreatic head along with uncinate process hypodense area measuring 5 mm which may represent a sidebranch IPM and. This could be further evaluated with MRCP if clinically warranted. There were bilateral nonobstructing renal calculi and a right renal simple appearing cyst. Colonic diverticulosis was noted as well. His pain has continued and began to worsen over the last day. His been associated with nausea but no vomiting. He denies any previous history of pancreatitis. He denies any alcohol use. He does take Motrin frequently. An EGD 5-6 years ago. He has no history of cholecystectomy or gallbladder problems. He does state his father has a history of pancreatic cancer. Admitting labs were unremarkable. 11/05/2021 Patient seen in follow-up. LFTs remain unremarkable. Patient had ultrasound of the gallbladder yesterday which was normal. MRCP today shows pancreatic duct minimally dilated in the head without obstructing mass or calculus or obvious stricture. Tiny 4-5 mm thin-walled cyst in the canal process of pancreas on CT not clearly seen on MRI. Lesions almost certainly benign in etiology. Patient states he's still having some abdominal pain mostly in the mid to right lower abdomen. States his last bowel movement was this morning. Denies any nausea or vomiting. 11/06/2021 The patient is seen as a follow-up. He states he still has some right lower abdominal pain. Bowel movements have been normal. Some nausea but no vomiting. Decreased appetite. He has been afebrile. Labs have been unremarkable. Objective - Vital Signs Vital signs: Vital Signs Temp 97.8 F 11/06/21 07:00 Pulse 72 11/06/21 07:00 Resp 18 11/06/21 07:00 BP 127/80 11/06/21 07:00 Pulse Ox 96 11/06/21 07:00 Intake & Output 11/05/21 11/06/21 11/06/21 18:59 06:59 18:59 Intake Total 1000 Output Total 1090 600 Balance -1090 400 Intake: Oral 1000 Output: Urine 1090 600 Other: Voiding Method Toilet Toilet Urinal Urinal # Voids 4 2 - Exam General appearance: The patient is alert, oriented, appears in no acute distress. HET: Head is normocephalic and atraumatic. Conjunctiva pink. Sclera anicteric. Neck: Supple without lymphadenopathy. Abdomen: Soft, right lower quadrant tenderness, nondistended with bowel sounds. No guarding or rigidity. Extremities: Normal skin color and turgor. No pedal edema Skin: No rashes, no jaundice Neurological: No focal deficits. Alert and oriented x-3. - Labs CBC & Chem 7: 11/04/21 06:15 11/05/21 08:59 Assessment and Plan (1) Right upper quadrant abdominal pain Narrative/Plan: 38-year-old male who presented to the emergency department yesterday with complaints of right upper quadrant pain. Patient had been seen in emergency department 3 days prior with similar complaints. At that time he had a CT of the abdomen done that showed no evidence of acute intra-abdominal process with mildly enlarged main pancreatic duct at 4 mm in the pancreatic head along with uncinate process hypodense area measuring 5 mm which may represent a sidebranch IPM and. This could be further evaluated with MRCP if clinically warranted. There were bilateral nonobstructing renal calculi and a right renal simple appearing cyst. Colonic diverticulosis was noted as well. The patient was sent home at that time and told to follow-up with gastroenterology as needed. On admission LFTs are unremarkable, repeat labs again unremarkable with no elevation in LFTs. Lipase was normal at 72. He continues to have this right upper quadrant pain associated with nausea but no vomiting. Gallbladder ultrasound was ordered again no acute abnormality evident to account for patient's symptoms. MRCP will be ordered for further evaluation of possible pancreatic ductal dilation. Other possible etiologies of epigastric pain can be gastritis or related to possible GERD or peptic ulcer disease. Patient does use NSAIDs on a regular basis. INTERVENTIONAL TECH ordered and reviewed. No significant findings. 4-5 mm thin-walled cyst in the process of pancreas on CT not clearly seen on the MRI. There is no obvious stricture or obstructing mass. There is no need for further imaging or endoscopic evaluation. Current Visit: Yes Status: Acute Code(s): R10.11 - RIGHT UPPER QUADRANT PAIN SNOMED Code(s): 868024993 (2) Pancreatic duct dilated Current Visit: Yes Status: Acute Code(s): K86.89 - OTHER SPECIFIED DISEASES OF PANCREAS SNOMED Code(s): 996889597 Plan: 1. Continue symptomatic and supportive care 2. Antiemetics as needed 3. Protonix 40 mg daily 4. Gallbladder ultrasound ordered and reviewed 5. MRCP ordered and reviewed 6. No plans for endoscopic evaluation 7. Continue dicyclomine as needed 8. No further workup warranted by gastroenterology. Patient is cleared for discharge by gastroenterology. Thank you for this consultation, we will sign off at this time. Dr. Roseanne Bhandari I agree with the dictator's note, documented as a scribe by Lidia Busch.
--- NOTE | 2021-11-06 19:11 | P.GSCN ---
History of Present Illness Consult date: 11/06/21 Reason for Consult: bilateral renal stones History of present illness: this is a 46-year-old male admitted to the hospital with right-sided abdominal pain. Urology is consulted for bilateral renal stones. He had a CT scan done on November 01 which showed evidence of bilateral nonobstructive renal stones. His abdominal pain has been ongoing for about a week. Denies any flank pain, or any gross hematuria, or any other urinary issues. All stones measured less than 3 mm and were not obstructive in nature. No evidence of ureteral stone or hydronephrosis. No previous history of kidney stones, no family history of kidney stones Review of Systems - Constitutional Denies fever, Denies weight loss - Cardiovascular Denies chest pain, Denies shortness of breath - Respiratory Denies cough, Denies 7 - Gastrointestinal Reports abdominal pain, Reports nausea - Genitourinary Denies dysuria, Denies hematuria Past Medical History Past Medical History: Chest Pain / Angina, COPD, Deep Vein Thrombosis (DVT), GERD/Reflux Additional Past Medical History / Comment(s): sciatica , pneumothorax x2, emphysema,DJD,KIDNEY STONES,HIATAL HERNIA, DVT in heidy and left side of the neck, pt states he's borderline diabetic History of Any Multi-Drug Resistant Organisms: None Reported Past Surgical History: Heart Catheterization Additional Past Surgical History / Comment(s): left lung biopsy, BLEBS REMOVED, spontaneous pneumo X2 requitring c/t. HAD TUBES IN EAR CHILD, ENDOSCOPY Past Anesthesia/Blood Transfusion Reactions: No Reported Reaction Past Psychological History: Anxiety, Depression Additional Psychological History / Comment(s): pt uses marijuana. 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 NO SERVICE IN PAST. DEINES ANY HOME CARE SERVICES RECIVED, NO MEDICAL EQUIPMENT. Smoking Status: Current every day smoker Past Alcohol Use History: Occasional Additional Past Alcohol Use History / Comment(s): STARTED SMOKING AT AGE 12- SMOKES 1 ppd, stated DRINKS LESS THAN 14 DRINKS PER WEEK Past Drug Use History: Marijuana - Past Family History Father Family Medical History: Cancer, COPD, Hyperlipidemia, Hypertension, Myocardial Infarction ([place]), Renal Disease Additional Family Medical History / Comment(s): DAD AT AGE 67- EMPHYSEMA, VALVE REPLACEMENT 1983, of carcinoma "CUPS" Mother Additional Family Medical History / Comment(s): MOM IS 70 HAS MS Medications and Allergies Home Medications Medication Instructions Recorded Confirmed Type Acetaminophen Tab [Tylenol] 650 mg PO Q6HR PRN 7 Days #15 tab 11/06/21 Rx Dicyclomine [Bentyl] 20 mg PO QID PRN #60 tab 11/06/21 Rx Ibuprofen [Motrin] 600 mg PO Q8HR PRN 3 Days #10 tab 11/06/21 Rx Lidocaine 5% Patch [Lidoderm 5% 1 patch TOPICAL DAILY #3 patch 11/06/21 Rx Patch] Ondansetron [Zofran] 4 mg PO Q8HR PRN 2 Days #8 tab 11/06/21 Rx Allergies Allergy/AdvReac Type Severity Reaction Status Date / Time morphine AdvReac Unknown Hallucinati Verified 11/03/21 22:49 ons Surgical - Exam Vital Signs Temp Pulse Resp BP Pulse Ox 98.0 F 70 18 136/81 97 11/03/21 18:34 11/03/21 18:34 11/03/21 18:34 11/03/21 18:34 11/03/21 18:34 - General well developed, well nourished, no distress - Eyes normal ocular movement, no icteric - ENT normal nares, normal mucosa, no hearing loss - Respiratory normal expansion, normal respiratory effort - Abdomen Abdomen: soft, tender (right upper quadrant) - Integumentary no rash - Neurologic normal coordination, normal sensation - Psychiatric oriented to time, oriented to person, oriented to place Results - Labs 11/04/21 06:15 11/05/21 08:59 - Imaging CT scan - abdomen: image reviewed (bilateral nonobstructive renal stones, no hydronephrosis) Assessment and Plan Assessment: 46-year-old male admitted to the hospital with right upper quadrant abdominal pain. Urology is consulted for bilateral renal stones. CT was reviewed, stones are nonobstructive in nature, all measured 3 mm in size or less . Stones are unlikely to be the source of the pain, given the size and the lack of hydronephrosis. No further intervention is needed from urology standpoint -Can follow-up with urology on an as-needed basis
[2021-11-06] MEDS: KETOROLAC 30 MG/ML 1 ML VIAL IVP PRN (20:41)
[2021-11-06] MEDS: MELATONIN 3 MG TABLET PO PRN (22:10)
[2021-11-07] MEDS: SODIUM CHLORIDE 0.9% 1,000 ML IV SCH ×3 (02:00→23:04)
--- NOTE | 2021-11-07 07:02 | P.PN ---
Subjective This is a pleasant 46 years old male with past medical history of COPD, Deep Vein Thrombosis on anticoagulation, GERD, sciatica , pneumothorax x2, emphysema,DJD,KIDNEY STONES,HIATAL HERNIA, Anxiety, Depression 2 days ago, also patient was in the emergency room 2 days ago for abdominal pain in the left lower quadrant, CT of the abdomen and pelvis with contrast at that time on 11/01/2020 was showing: (No evidence for acute intra-abdominal process, moderately large main pancreatic duct at 4 mm of the pancreatic head along with an uncinate process hypodense area measuring 5 mm which may represent a side branch IPMN as per radiologist . This could be further evaluated with MRCP if clinically warranted Bilateral nonobstructing renal calculi and right renal cyst and diverticulosis) This time presents also with the same abdominal pain which is now for 5 days duration, and right upper quadrant area and to the level of the umbilicus on the right side, about 8-9/10 in severity, currently 6/10 after pain medication field like 'open bebe' as patient describes. He has a little nausea but no vomiting He has normal bowel movement yesterday morning He smokes about 1 pack per day and he was counseled to quit and he agrees and wants nicotine patch. He drinks alcohol occasionally once a week. And uses marijuana Vitas looks stable. Labs including CBC, INR, BMP and liver enzymes were unremarkable. Troponin negative, lactic acid is negative. No varus not detected. KUB: No acute abdominal process. EKG showing normal sinus rhythm at [address]-T changes, QTC 391 Lipase normal at 72 Urine analysis is not suspicious of infection 2 days ago At the emergency room and received Dilaudid and normal saline at 130 mL/h GI team were consulted from emergency room 11/05/2021 Patient today underwent MRCP which basically was negative Pancreatic duct minimally dilated in the head without obstructing mass or calculus or obvious stricture. 94-5 mm thin-walled cyst in the uncinate process of pancreas on CT are not clearly seen on MRI. Lesions almost certainly benign in etiology. Annual imaging surveillance advised, I informed the patient about the results of the MRCP and the recommendation for annual surveillance and monitoring and he verbalized understanding and acceptance to me With negative MRCP and CT of the abdomen and pelvis, as well as upper quadrant ultrasound, really there is no organic reason found for patient symptoms and pain despite extensive workup , his abdomen examination is benign and soft. It could be conversion disorder, psychological or drug seeking defect. Actually the patient was able to eat his old lunch 100% today with no difficulties. He had regular bowel movement GI service cleared The patient for discharge Patient also has bilateral kidney stones but likely the cause of the pain as they have different characteristics and they are in different locations. Besides his urine analysis is completely normal. On reviewing the chart patient has history of multiple admissions or ER visits with pain, like abdominal pain, chest pain, throat pain, shoulder pain, cervical pain, hand and wrist pain, headache. We will monitor 24 hours and possible discharge in the morning. Try to avoid narcotics as they have more risks than benefit for example but not limited to addiction, constipation, respiratory depression, and/or . 11/06/2021 Patient still complaining of from severe pain as he states in his right side, close to the umbilicus anteriorly. Patient states that he forgot to discharge. I'm going to go for another hospital. Patient is afebrile and vitals are stable. CBC and BMP were unremarkable. Electrolytes and creatinine are normal. Liver enzymes also were normal. Urinalysis is negative. GI team or the care of the patient on discharge after stent and Bentyl and Tylenol. Dilaudid was stopped and patient told me he does not want anymore Dilaudid when I talked to him today Because of this persistent pain reconsult surgery service who recommended EGD on Tuesday 11/13 further evaluation for possible gastritis. Patient specifically asked to give him Toradol, risk of worsening gastritis, peptic ulcer and perforation are explained for him he verbalized understanding and acceptance. Patient states that Toradol is helping his pain. Surgical team recommended urology service don't think his pain is due to renal stone as there are 2 small with only 3 mm Also patient says that he does not have a PCP, I encouraged him to call his health insurance provider to find nearby PCP since he is visiting emergency room every year since 2013 (except 2019) at least once if not several times during a year Objective - Vital Signs Vital signs: Vital Signs Temp 97.8 F 11/06/21 07:00 Pulse 72 11/06/21 08:00 Resp 18 11/06/21 08:00 BP 127/80 11/06/21 07:00 Pulse Ox 96 11/06/21 07:00 Intake & Output 11/05/21 11/06/21 11/06/21 18:59 06:59 18:59 Intake Total 1000 500 Output Total 1090 600 Balance -1090 400 500 Intake: Oral 1000 500 Output: Urine 1090 600 Other: Voiding Method Toilet Toilet Toilet Urinal Urinal Urinal # Voids 4 2 - Exam GENERAL: The patient is alert and oriented x3, not in any acute distress. Well developed, well nourished. HEENT: Pupils are round and equally reacting to light. EOMI. No scleral icterus. No conjunctival pallor. Normocephalic, atraumatic. No pharyngeal erythema. No thyromegaly. CARDIOVASCULAR: S1 and S2 present. No murmurs, rubs, or gallops. PULMONARY: Chest is clear to auscultation, no wheezing or crackles. -ABDOMEN: Soft, tenderness in RUQ with no rebound tenderness or guarding, nondistended, normoactive bowel sounds. No palpable organomegaly. MUSCULOSKELETAL: No joint swelling or deformity. EXTREMITIES: No cyanosis, clubbing, or pedal edema. NEUROLOGICAL: Gross neurological examination did not reveal any focal deficits. SKIN: No rashes. no petechiae. - Labs CBC & Chem 7: 11/04/21 06:15 11/05/21 08:59 Assessment and Plan Assessment: Right upper quadrant abdominal pain with no organic reason despite extensive workup. Drug seeking behavior versus irritable bowel syndrome is suspected. Surgery recommended EGD to rule out gastritis Moderately enlarged pancreatic duct, however MRCP showed only minimally dilated pancreatic duct that would not explain the patient's symptoms. Patient. By GI team regarding this problem Bilateral nonobstructing renal calculi. With normal urinalysis. This could not explain the patient's symptoms as well. Diverticulosis without diverticulitis Substance abuse with marijuana Nicotine dependence Right kidney cyst COPD, no acute exacerbation History of GERD History of deep venous thrombosis, not on anticoagulation History of pneumothorax 2 History of kidney stones History of hiatal hernia History of anxiety depression, not an active issue Plan: This is a pleasant 46 years old male who presents with abdominal pain and CT evidence of dilated pancreatic duct GI service consulted and they cleared the patient for discharge Patient tolerated diet very well Pain management with gallstone avoid narcotics. Continue with Tylenol Bentyl and lidocaine patch (patient refused the patch ) and Toradol when necessary (small and less frequent) Surgical team are planning for EGD on Friday 11/09. Patient informed and agrees Labs and medication were reviewed.. Continue same treatment. Continue with symptomatic treatment. Resume home medication. Monitor lytes and vitals. DVT and GI prophylaxis. Further recommendations as per clinical course of the patient DVT prophylaxis: Subcutaneous heparin GI Prophylaxis: Pepcid
[2021-11-07] MEDS: KETOROLAC 30 MG/ML 1 ML VIAL IVP PRN ×2 (07:27→22:13)
[2021-11-07] MEDS: NICOTINE 21MG/24HR PATCH TRANSDERM SCH (08:35)
[2021-11-07] MEDS: LIDOCAINE 5% PATCH TOPICAL SCH (08:36)
--- NOTE | 2021-11-07 13:02 | P.PN ---
Subjective Progress Note Date: 11/07/21 CHIEF COMPLAINT: Right upper quadrant abdominal pain HISTORY OF PRESENT ILLNESS: The patient is a 46-year-old male comes in with right upper quadrant abdominal pain over 1 week. He reports persistent nausea with meals. He is can tolerate coffee and few bites of Cheerios. ROS: No fevers or chills. No new chest pain. No productive sputum PHYSICAL EXAM: VITAL SIGNS: Reviewed CONSTITUTIONAL: Well developed and in no acute distress. EYES: Conjuctivae without sclera icterus. Extraocular movements grossly intact. HEAD, EARS, NOSE, THROAT: Moist buccal mucosa. Head is atraumatic, normocephalic . Hears conversational speech. No nasal drainage. RESPIRATORY: Non-labored respirations and equal bilateral excursions. CARDIOVASCULAR: 2+ radial pulses. ABDOMEN: Tender right upper quadfrant. MUSCULOSKELETAL: No gross deformity of the lower extremities noted. No clubbing. No cyanosis. SKIN: Good skin turgor. Well perfused. NEUROLOGIC: Cranial nerves II through XII grossly intact. No focal or lateralizing signs. PSYCH: Appropriate affect. Alert and oriented to person, place and time. CLINICAL LABS: Reviewed. WBC 6.5. Lipase normal. LFTs normal STUDIES: Ultrasound of gallbladder reviewed without large gallstones. Cysts along kidneys found. This is my independent interpretation. RADIOLOGY: MRCP report pancreatic duct without stricture. 5-mm cyst at uncinate process of pancreas ASSESSMENT: 1. Pancreatic cyst with right upper quadrant abdominal pain PLAN: 1. Additional studies pending for his right upper quadrant abdominal pain. 2. Diet as toleratated. Objective - Vital Signs Vital signs: Vital Signs Temp 98 F 11/07/21 07:44 Pulse 52 L 11/07/21 07:44 Resp 16 11/07/21 07:44 BP 117/72 11/07/21 07:44 Pulse Ox 96 11/07/21 07:44 Intake & Output 11/06/21 11/07/21 11/07/21 18:59 06:59 18:59 Intake Total 740 540 Output Total 400 300 Balance 340 240 Intake: IV 300 Sodium Chloride 0.9% 1, 300 000 ml @ 75 mls/hr IV . [id number] [facility] Rx#:[id number] Oral 740 240 Output: Urine 400 300 Other: Voiding Method Toilet Toilet Urinal Urinal # Voids 2 - Labs CBC & Chem 7: 11/04/21 06:15 11/05/21 08:59 Assessment and Plan (1) Pancreatic cyst Current Visit: Yes Status: Acute Code(s): K86.2 - CYST OF PANCREAS SNOMED Code(s): 19586245 (2) Right upper quadrant abdominal pain Current Visit: Yes Status: Acute Code(s): R10.11 - RIGHT UPPER QUADRANT PAIN SNOMED Code(s): 090416388
--- NOTE | 2021-11-07 20:29 | P.PN ---
Subjective This is a pleasant 46 years old male with past medical history of COPD, Deep Vein Thrombosis on anticoagulation, GERD, sciatica , pneumothorax x2, emphysema,DJD,KIDNEY STONES,HIATAL HERNIA, Anxiety, Depression 2 days ago, also patient was in the emergency room 2 days ago for abdominal pain in the left lower quadrant, CT of the abdomen and pelvis with contrast at that time on 11/01/2020 was showing: (No evidence for acute intra-abdominal process, moderately large main pancreatic duct at 4 mm of the pancreatic head along with an uncinate process hypodense area measuring 5 mm which may represent a side branch IPMN as per radiologist . This could be further evaluated with MRCP if clinically warranted Bilateral nonobstructing renal calculi and right renal cyst and diverticulosis) This time presents also with the same abdominal pain which is now for 5 days duration, and right upper quadrant area and to the level of the umbilicus on the right side, about 8-9/10 in severity, currently 6/10 after pain medication field like 'open bebe' as patient describes. He has a little nausea but no vomiting He has normal bowel movement yesterday morning He smokes about 1 pack per day and he was counseled to quit and he agrees and wants nicotine patch. He drinks alcohol occasionally once a week. And uses marijuana Vitas looks stable. Labs including CBC, INR, BMP and liver enzymes were unremarkable. Troponin negative, lactic acid is negative. No varus not detected. KUB: No acute abdominal process. EKG showing normal sinus rhythm at [address]-T changes, QTC 391 Lipase normal at 72 Urine analysis is not suspicious of infection 2 days ago At the emergency room and received Dilaudid and normal saline at 130 mL/h GI team were consulted from emergency room 11/05/2021 Patient today underwent MRCP which basically was negative Pancreatic duct minimally dilated in the head without obstructing mass or calculus or obvious stricture. 94-5 mm thin-walled cyst in the uncinate process of pancreas on CT are not clearly seen on MRI. Lesions almost certainly benign in etiology. Annual imaging surveillance advised, I informed the patient about the results of the MRCP and the recommendation for annual surveillance and monitoring and he verbalized understanding and acceptance to me With negative MRCP and CT of the abdomen and pelvis, as well as upper quadrant ultrasound, really there is no organic reason found for patient symptoms and pain despite extensive workup , his abdomen examination is benign and soft. It could be conversion disorder, psychological or drug seeking defect. Actually the patient was able to eat his old lunch 100% today with no difficulties. He had regular bowel movement GI service cleared The patient for discharge Patient also has bilateral kidney stones but likely the cause of the pain as they have different characteristics and they are in different locations. Besides his urine analysis is completely normal. On reviewing the chart patient has history of multiple admissions or ER visits with pain, like abdominal pain, chest pain, throat pain, shoulder pain, cervical pain, hand and wrist pain, headache. We will monitor 24 hours and possible discharge in the morning. Try to avoid narcotics as they have more risks than benefit for example but not limited to addiction, constipation, respiratory depression, and/or . 11/06/2021 Patient still complaining of from severe pain as he states in his right side, close to the umbilicus anteriorly. Patient states that he forgot to discharge. I'm going to go for another hospital. Patient is afebrile and vitals are stable. CBC and BMP were unremarkable. Electrolytes and creatinine are normal. Liver enzymes also were normal. Urinalysis is negative. GI team or the care of the patient on discharge after stent and Bentyl and Tylenol. Dilaudid was stopped and patient told me he does not want anymore Dilaudid when I talked to him today Because of this persistent pain reconsult surgery service who recommended EGD on Tuesday 11/13 further evaluation for possible gastritis. Patient specifically asked to give him Toradol, risk of worsening gastritis, peptic ulcer and perforation are explained for him he verbalized understanding and acceptance. Patient states that Toradol is helping his pain. Surgical team recommended urology service don't think his pain is due to renal stone as there are 2 small with only 3 mm Also patient says that he does not have a PCP, I encouraged him to call his health insurance provider to find nearby PCP since he is visiting emergency room every year since 2014 (except 2019) at least once if not several times during a year 11/07/2021 Patient right-sided abdominal pain is better controlled, patient is calm sitting in bed but he still complaining from pain. A likely due to quit his toes and they are very small about 3 mm and his been e valuated by urologist who stated the same. Surgical team are planning for EGD on Tuesday Patient currently states that his pain improved with Toradol, explained for him it might make ulcers or gastritis worse and he verbalized understanding and acceptance. Objective - Vital Signs Vital signs: Vital Signs Temp 98 F 11/07/21 07:44 Pulse 52 L 11/07/21 07:44 Resp 16 11/07/21 07:44 BP 117/72 11/07/21 07:44 Pulse Ox 96 11/07/21 07:44 Intake & Output 11/06/21 11/07/21 11/07/21 18:59 06:59 18:59 Intake Total 740 540 600 Output Total 400 300 Balance 340 240 600 Intake: IV 300 Sodium Chloride 0.9% 1, 300 000 ml @ 75 mls/hr IV . [id number] [facility] Rx#:[id number] Intake, IV Titration 600 Amount Sodium Chloride 0.9% 1, 600 000 ml @ 75 mls/hr IV . [id number] [facility] Rx#:[id number] Oral 740 240 Output: Urine 400 300 Other: Voiding Method Toilet Toilet Urinal Urinal # Voids 2 - Exam GENERAL: The patient is alert and oriented x3, not in any acute distress. Well developed, well nourished. HEENT: Pupils are round and equally reacting to light. EOMI. No scleral icterus. No conjunctival pallor. Normocephalic, atraumatic. No pharyngeal erythema. No thyromegaly. CARDIOVASCULAR: S1 and S2 present. No murmurs, rubs, or gallops. PULMONARY: Chest is clear to auscultation, no wheezing or crackles. -ABDOMEN: Soft, tenderness in RUQ with no rebound tenderness or guarding, nond istended, normoactive bowel sounds. No palpable organomegaly. MUSCULOSKELETAL: No joint swelling or deformity. EXTREMITIES: No cyanosis, clubbing, or pedal edema. NEUROLOGICAL: Gross neurological examination did not reveal any focal deficits. SKIN: No rashes. no petechiae. - Labs CBC & Chem 7: 11/04/21 06:15 11/05/21 08:59 Assessment and Plan Assessment: Right upper quadrant abdominal pain with no organic reason despite extensive workup. Drug seeking behavior versus irritable bowel syndrome is suspected. Surgery recommended EGD to rule out gastritis Moderately enlarged pancreatic duct, however MRCP showed only minimally dilated pancreatic duct that would not explain the patient's symptoms. Patient. By GI team regarding this problem Bilateral nonobstructing renal calculi. With normal urinalysis. This could not explain the patient's symptoms as well. Diverticulosis without diverticulitis Substance abuse with marijuana Nicotine dependence Right kidney cyst COPD, no acute exacerbation History of GERD History of deep venous thrombosis, not on anticoagulation History of pneumothorax 2 History of kidney stones History of hiatal hernia History of anxiety depression, not an active issue Plan: This is a pleasant 46 years old male who presents with abdominal pain and CT evidence of dilated pancreatic duct GI service consulted and they cleared the patient for discharge Patient tolerated diet very well Pain management with gallstone avoid narcotics. Continue with Tylenol Bentyl and lidocaine patch (patient refused the patch ) and Toradol when necessary (small and less frequent) Surgical team are planning for EGD on Friday 11/09. Patient informed and agrees Labs and medication were reviewed.. Continue same treatment. Continue with symptomatic treatment. Resume home medication. Monitor lytes and vitals. DVT and GI prophylaxis. Further recommendations as per clinical course of the patient DVT prophylaxis: Subcutaneous heparin GI Prophylaxis: Pepcid
[2021-11-07] MEDS: ONDANSETRON 4 MG/2 ML VIAL IVP PRN (22:17)
[2021-11-07] MEDS: MELATONIN 3 MG TABLET PO PRN (23:18)
[2021-11-08] MEDS: NICOTINE 21MG/24HR PATCH TRANSDERM SCH (08:57)
[2021-11-08] MEDS: KETOROLAC 30 MG/ML 1 ML VIAL IVP PRN ×2 (08:58→20:27)
[2021-11-08] MEDS: LIDOCAINE 5% PATCH TOPICAL SCH (08:58)
[2021-11-08] MEDS: ONDANSETRON 4 MG/2 ML VIAL IVP PRN ×2 (08:59→14:50)
[2021-11-08 10:07] LABS: Basophils # (A) 0.07 X 10*3/uL (0.00-0.10); Basophils % (A) 0.9 %; Eosinophils % (A) 2.6 %; HCT 51.1 % (39.6-50.0); HGB 17.3 g/dL (13.0-17.0); Lymphocytes # (A) 1.95 X 10*3/uL (0.90-5.00); Lymphocytes % (A) 25.2 %; MCH 34.3 pg (27.0-32.0); MCHC 33.9 g/dL (32.0-37.0); MCV 101.4 fL (80.0-97.0); Mean Platelet Volume 11.6 fL (9.5-12.2); Monocytes # (A) 1.11 X 10*3/uL (0.20-1.00); Monocytes % (A) 14.4 %; Neutrophils # (A) 4.38 X 10*3/uL (1.80-7.70); Neutrophils % (A) 56.6 %; Platelet Count 175 X 10*3/uL (140-440); RBC 5.04 X 10*6/uL (4.40-5.60); RDW 13.4 % (11.5-14.5); WBC 7.73 X 10*3/uL (4.50-10.00)
--- NOTE | 2021-11-08 14:47 | P.PN ---
Subjective Progress Note Date: 11/08/21 CHIEF COMPLAINT: Right upper quadrant abdominal pain HISTORY OF PRESENT ILLNESS: The patient is a 46-year-old male comes in with right upper quadrant abdominal pain over 1 week. He is able to eat more today including potato chips. He still reports right upper quadrant pain. ROS: No fevers or chills. No new chest pain. No productive sputum PHYSICAL EXAM: VITAL SIGNS: Reviewed CONSTITUTIONAL: Well developed and in no acute distress. EYES: Conjuctivae without sclera icterus. Extraocular movements grossly intact. HEAD, EARS, NOSE, THROAT: Moist buccal mucosa. Head is atraumatic, normocepha lic. Hears conversational speech. No nasal drainage. RESPIRATORY: Non-labored respirations and equal bilateral excursions. CARDIOVASCULAR: 2+ radial pulses. ABDOMEN: Tender right upper quadfrant. MUSCULOSKELETAL: No gross deformity of the lower extremities noted. No clubbing. No cyanosis. SKIN: Good skin turgor. Well perfused. NEUROLOGIC: Cranial nerves II through XII grossly intact. No focal or lateralizing signs. PSYCH: Appropriate affect. Alert and oriented to person, place and time. CLINICAL LABS: Reviewed. Hgb up 17.3. WBC normal ASSESSMENT: 1. Pancreatic cyst with right upper quadrant abdominal pain PLAN: 1. HIDA scan pending for tomorrow. 2. Diet as tolerated. Objective - Vital Signs Vital signs: Vital Signs Temp 97.8 F 11/08/21 08:00 Pulse 72 11/08/21 08:00 Resp 17 11/08/21 08:00 BP 120/71 11/08/21 08:00 Pulse Ox 97 11/08/21 08:00 Intake & Output 11/07/21 11/08/21 11/08/21 18:59 06:59 18:59 Intake Total 600 Output Total 0 Balance 600 0 Intake: Intake, IV Titration 600 Amount Sodium Chloride 0.9% 1, 600 000 ml @ 75 mls/hr IV . [id number] [facility] Rx#:[id number] Output: Emesis 0 Other: Voiding Method Toilet Toilet # Voids 2 - Labs CBC & Chem 7: 11/08/21 06:10 11/05/21 08:59 Labs: Abnormal Lab Results - Last 24 Hours (Table) 11/08/21 Range/Units 06:10 Hgb 17.3 H (13.0-17.0) g/dL Hct 51.1 H (39.6-50.0) % MCV 101.4 H (80.0-97.0) fL MCH 34.3 H (27.0-32.0) pg Monocytes # 1.11 H (0.20-1.00) X 10*3/uL Assessment and Plan (1) Pancreatic cyst Current Visit: Yes Status: Acute Code(s): K86.2 - CYST OF PANCREAS SNOMED Code(s): 88000727 (2) Right upper quadrant abdominal pain Current Visit: Yes Status: Acute Code(s): R10.11 - RIGHT UPPER QUADRANT PAIN SNOMED Code(s): 560395650
[2021-11-08] MEDS: DICYCLOMINE 20 MG TAB PO PRN (15:42)
[2021-11-08] MEDS: SODIUM CHLORIDE 0.9% 1,000 ML IV SCH (18:21)
[2021-11-08] MEDS: MELATONIN 3 MG TABLET PO PRN (20:24)
--- NOTE | 2021-11-08 21:23 | P.PN ---
Subjective This is a pleasant 46 years old male with past medical history of COPD, Deep Vein Thrombosis on anticoagulation, GERD, sciatica , pneumothorax x2, emphysema,DJD,KIDNEY STONES,HIATAL HERNIA, Anxiety, Depression 2 days ago, also patient was in the emergency room 2 days ago for abdominal pain in the left lower quadrant, CT of the abdomen and pelvis with contrast at that time on 11/01/2020 was showing: (No evidence for acute intra-abdominal process, moderately large main pancreatic duct at 4 mm of the pancreatic head along with an uncinate process hypodense area measuring 5 mm which may represent a side branch IPMN as per radiologist . This could be further evaluated with MRCP if clinically warranted Bilateral nonobstructing renal calculi and right renal cyst and diverticulosis) This time presents also with the same abdominal pain which is now for 5 days duration, and right upper quadrant area and to the level of the umbilicus on the right side, about 8-9/10 in severity, currently 6/10 after pain medication field like 'open bebe' as patient describes. He has a little nausea but no vomiting He has normal bowel movement yesterday morning He smokes about 1 pack per day and he was counseled to quit and he agrees and wants nicotine patch. He drinks alcohol occasionally once a week. And uses marijuana Vitas looks stable. Labs including CBC, INR, BMP and liver enzymes were unremarkable. Troponin negative, lactic acid is negative. No varus not detected. KUB: No acute abdominal process. EKG showing normal sinus rhythm at [address]-T changes, QTC 391 Lipase normal at 72 Urine analysis is not suspicious of infection 2 days ago At the emergency room and received Dilaudid and normal saline at 130 mL/h GI team were consulted from emergency room 11/05/2021 Patient today underwent MRCP which basically was negative Pancreatic duct minimally dilated in the head without obstructing mass or calculus or obvious stricture. 94-5 mm thin-walled cyst in the uncinate process of pancreas on CT are not clearly seen on MRI. Lesions almost certainly benign in etiology. Annual imaging surveillance advised, I informed the patient about the results of the MRCP and the recommendation for annual surveillance and monitoring and he verbalized understanding and acceptance to me With negative MRCP and CT of the abdomen and pelvis, as well as upper quadrant ultrasound, really there is no organic reason found for patient symptoms and pain despite extensive workup , his abdomen examination is benign and soft. It could be conversion disorder, psychological or drug seeking defect. Actually the patient was able to eat his old lunch 100% today with no difficulties. He had regular bowel movement GI service cleared The patient for discharge Patient also has bilateral kidney stones but likely the cause of the pain as they have different characteristics and they are in different locations. Besides his urine analysis is completely normal. On reviewing the chart patient has history of multiple admissions or ER visits with pain, like abdominal pain, chest pain, throat pain, shoulder pain, cervical pain, hand and wrist pain, headache. We will monitor 24 hours and possible discharge in the morning. Try to avoid narcotics as they have more risks than benefit for example but not limited to addiction, constipation, respiratory depression, and/or . 11/06/2021 Patient still complaining of from severe pain as he states in his right side, close to the umbilicus anteriorly. Patient states that he forgot to discharge. I'm going to go for another hospital. Patient is afebrile and vitals are stable. CBC and BMP were unremarkable. Electrolytes and creatinine are normal. Liver enzymes also were normal. Urinalysis is negative. GI team or the care of the patient on discharge after stent and Bentyl and Tylenol. Dilaudid was stopped and patient told me he does not want anymore Dilaudid when I talked to him today Because of this persistent pain reconsult surgery service who recommended EGD on Tuesday 11/13 further evaluation for possible gastritis. Patient specifically asked to give him Toradol, risk of worsening gastritis, peptic ulcer and perforation are explained for him he verbalized understanding and acceptance. Patient states that Toradol is helping his pain. Surgical team recommended urology service don't think his pain is due to renal stone as there are 2 small with only 3 mm Also patient says that he does not have a PCP, I encouraged him to call his health insurance provider to find nearby PCP since he is visiting emergency room every year since 2014 (except 2019) at least once if not several times during a year 11/07/2021 Patient right-sided abdominal pain is better controlled, patient is calm sitting in bed but he still complaining from pain. A likely due to quit his toes and they are very small about 3 mm and his been e valuated by urologist who stated the same. Surgical team are planning for EGD on Tuesday Patient currently states that his pain improved with Toradol, explained for him it might make ulcers or gastritis worse and he verbalized understanding and acceptance. 11/08/2021 Patient with abdominal pain says that's improving with Toradol, despite explaining to him it might increase risk of orientation to the bowel and increased risk of ulceration however he wants to keep that Toradol stating that this helps his pain. We checked his CBC today, there is no drop in hemoglobin. Surgical team are planning for HIDA scan tomorrow and EGD in the morning Discussed extensively with the patient for the need to call his health insurance provider to find a nearby PCP. Objective - Vital Signs Vital signs: Vital Signs Temp 97.8 F 11/08/21 08:00 Pulse 72 11/08/21 08:00 Resp 17 11/08/21 08:00 BP 120/71 11/08/21 08:00 Pulse Ox 97 11/08/21 08:00 Intake & Output 11/07/21 11/08/21 11/08/21 18:59 06:59 18:59 Intake Total 600 Output Total 0 Balance 600 0 Intake: Intake, IV Titration 600 Amount Sodium Chloride 0.9% 1, 600 000 ml @ 75 mls/hr IV . [id number] Rx#:[id number] Output: Emesis 0 Other: Voiding Method Toilet Toilet # Voids 2 - Exam GENERAL: The patient is alert and oriented x3, not in any acute distress. Well developed, well nourished. HEENT: Pupils are round and equally reacting to light. EOMI. No scleral icterus. No conjunctival pallor. Normocephalic, atraumatic. No pharyngeal erythema. No thyromegaly. CARDIOVASCULAR: S1 and S2 present. No murmurs, rubs, or gallops. PULMONARY: Chest is clear to auscultation, no wheezing or crackles. -ABDOMEN: Soft, tenderness in RUQ with no rebound tenderness or guarding, nondistended, normoactive bowel sounds. No palpable organomegaly. MUSCULOSKELETAL: No joint swelling or deformity. EXTREMITIES: No cyanosis, clubbing, or pedal edema. NEUROLOGICAL: Gross neurological examination did not reveal any focal deficits. SKIN: No rashes. no petechiae. - Labs CBC & Chem 7: 11/08/21 06:10 11/05/21 08:59 Labs: Abnormal Lab Results - Last 24 Hours (Table) 11/08/21 Range/Units 06:10 Hgb 17.3 H (13.0-17.0) g/dL Hct 51.1 H (39.6-50.0) % MCV 101.4 H (80.0-97.0) fL MCH 34.3 H (27.0-32.0) pg Monocytes # 1.11 H (0.20-1.00) X 10*3/uL Assessment and Plan Assessment: Right upper quadrant abdominal pain with no organic reason despite extensive workup. Drug seeking behavior versus irritable bowel syndrome is suspected. Surgery recommended EGD to rule out gastritis Moderately enlarged pancreatic duct, however MRCP showed only minimally dilated pancreatic duct that would not explain the patient's symptoms. Patient. By GI team regarding this problem Bilateral nonobstructing renal calculi. With normal urinalysis. This could not explain the patient's symptoms as well. Diverticulosis without diverticulitis Substance abuse with marijuana Nicotine dependence Right kidney cyst COPD, no acute exacerbation History of GERD History of deep venous thrombosis, not on anticoagulation History of pneumothorax 2 History of kidney stones History of hiatal hernia History of anxiety depression, not an active issue Plan: This is a pleasant 46 years old male who presents with abdominal pain and CT evidence of dilated pancreatic duct GI service consulted and they cleared the patient for discharge Patient tolerated diet very well Pain management with gallstone avoid narcotics. Continue with Tylenol Bentyl and lidocaine patch (patient refused the patch ) and Toradol when necessary (small and less frequent) Surgical team are planning for EGD on Friday 11/09. Patient informed and agrees Labs and medication were reviewed.. Continue same treatment. Continue with s ymptomatic treatment. Resume home medication. Monitor lytes and vitals. DVT and GI prophylaxis. Further recommendations as per clinical course of the patient DVT prophylaxis: Subcutaneous heparin GI Prophylaxis: Pepcid
--- NOTE | 2021-11-09 08:54 | NM ---
EXAMINATION TYPE: NM hepatobiliary w CCK DATE OF EXAM: 11/09/2021 COMPARISON: MRCP [address] abdomen and pelvis 8 days ago. Gallbladder ultrasound 5 days ago. HISTORY: Right upper quadrant pain. TECHNIQUE: After the intravenous administration of 4.8 mCi Tc 99m Mebrofenin hepatobiliary scintigrap hy is performed. Immediate images post injection. FINDINGS: There is satisfactory initial accumulation of tracer by the liver. The gallbladder is visualized wit hin 15 minutes. The small bowel activity is noted within 30 minutes. At one hour CCK was administer ed, patient was injected with 1.55 mcg of Kinevac, and gallbladder ejection fraction is calculated at 93 %, not deviated from the normal range. Therefore there is no scintigraphic evidence of cystic or common bile duct obstruction to suggest acute cholecystitis . IMPRESSION: Ejection fraction is 93%, some concern this abnormal or a hyperkinetic response. Correlat e clinically.
[2021-11-09 08:56] VITALS: RESP 16
[2021-11-09] MEDS: SODIUM CHLORIDE 0.9% 1,000 ML IV SCH (09:18)
[2021-11-09] MEDS: NICOTINE 21MG/24HR PATCH TRANSDERM SCH (09:19)
[2021-11-09] MEDS: ONDANSETRON 4 MG/2 ML VIAL IVP PRN (09:21)
[2021-11-09] MEDS: KETOROLAC 30 MG/ML 1 ML VIAL IVP PRN (09:21)
[2021-11-09] MEDS: LIDOCAINE 5% PATCH TOPICAL SCH (09:25)
[2021-11-09 10:12] LABS: HCT 51.7 % (39.0-53.0); HGB 17.1 gm/dL (13.0-17.5); MCH 34.4 pg (25.0-35.0); MCV 104.1 fL (80.0-100.0); Macrocytosis Slight; Mean Platelet Volume 9.3; Platelet Count 167 k/uL (150-450); RBC 4.97 m/uL (4.30-5.90); WBC 7.4 k/uL (3.8-10.6)
[2021-11-09 10:29] LABS: African American GFR (CKD) >90 (>60 ml/min/1.73 sqM); Anion Gap 6 mmol/L; Blood Urea Nitrogen 10 mg/dL (9-20); Calcium 9.1 mg/dL (8.4-10.2); Carbon Dioxide 23 mmol/L (22-30); Chloride 109 mmol/L (98-107); Glucose 72 mg/dL (74-99); Non-African American GFR(CKD) 88 (>60 ml/min/1.73 sqM); Potassium 4.9 mmol/L (3.5-5.1); Sodium 138 mmol/L (137-145)
[2021-11-09] MEDS ORDERED: LIDOCAINE 1% INJ 10MG/ML (20 ML MDV) ONE (14:28)
[2021-11-09] MEDS ORDERED: PROPOFOL 10 MG/ML 20 ML VIAL IV ONE (14:28)
[2021-11-09] MEDS ORDERED: IV FLUID CONTINUATION 1,000 ML IV ONE ×2 (14:30)
--- NOTE | 2021-11-09 14:39 | P.OP ---
Date of Procedure: 11/09/21 Preoperative Diagnosis: Epigastric abdominal pain Postoperative Diagnosis: Antral gastritis Procedure(s) Performed: EGD Anesthesia: MAC Surgeon: Rj Ram Pathology: other (Antrum) Condition: stable Disposition: PACU Description of Procedure: The patient's placed on the endoscopy table in the lateral position. She received IV sedation. The gastro-/oropharynx passed in the esophagus and stomach. Scope was then placed through the pylorus. The first and second portion of the duodenum appeared normal. Scope was brought back the antrum this appeared mildly inflamed. A biopsies performed. Scope was unretroflexed and remainder stomach appeared normal. The GE junction was at 40 cm the distal esophagus appeared normal. The proximal esophagus.. Scope withdrawn for patient.
[2021-11-09 15:40] VITALS: BP 150/75; PULSE 64; TEMP 97.6
[2021-11-09] MEDS ORDERED: HYDROmorphone 1 MG/ML 1 ML SYRINGE IVP PRN (16:13)
--- NOTE | 2021-11-10 07:29 | P.DS ---
Providers Date of admission: 11/06/21 11:16 Attending physician: Brandan Esparza Consults: 11/03/21 22:29 Consult Physician Urgent Consulting Provider: Penny Bhandari Consult Reason/Comments: abd pain, pancreatic duct dilation Do you want consulting provider notified?: Yes 11/06/21 11:15 Consult Physician Urgent Consulting Provider: Rj Ram Consult Reason/Comments: abd pain and tenderness Do you want consulting provider notified?: Yes 11/06/21 13:17 Consult Physician Urgent Consulting Provider: Toby Rosen Consult Reason/Comments: b/l kidney stones Do you want consulting provider notified?: Yes Primary care physician: Stated None Hospital Course: Diagnoses: Right upper quadrant abdominal pain with no organic reason despite extensive workup. Drug seeking behavior versus irritable bowel syndrome is suspected. Surgery recommended EGD to rule out gastritis Moderately enlarged pancreatic duct, however MRCP showed only minimally dilated pancreatic duct that would not explain the patient's symptoms. Patient. By GI team regarding this problem Bilateral nonobstructing renal calculi. With normal urinalysis. This could not explain the patient's symptoms as well. Diverticulosis without diverticulitis Substance abuse with marijuana Nicotine dependence Right kidney cyst COPD, no acute exacerbation History of GERD History of deep venous thrombosis, not on anticoagulation History of pneumothorax 2 History of kidney stones History of hiatal hernia History of anxiety depression, not an active issue Hospital course: This is a pleasant 46 years old male with past medical history of COPD, Deep Vein Thrombosis NOT on anticoagulation, GERD, sciatica , pneumothorax x2, emphysema,DJD,KIDNEY STONES,HIATAL HERNIA, Anxiety, Depression Patient presents with abdominal pain, CT of the abdomen and pelvis with contrast at that time on 11/01/2020 was showing: (No evidence for acute intra-abdominal process, moderately large main pancreatic duct at 4 mm of the pancreatic head along with an uncinate process hypodense area measuring 5 mm which may represent a side branch IPMN as per radiologist . This could be further evaluated with MRCP if clinically warranted Bilateral nonobstructing renal calculi and right renal cyst and diverticulosis) This time presents also with the same abdominal pain which is now for 5 days duration, and right upper quadrant area and to the level of the umbilicus on the right side, patient has been followed by GI and surgery team. He underwent MRCP which shows no significant abnormality other than mildly dilated pancreatic duct ((Pancreatic duct minimally dilated in the head without obstructing mass or calculus or obvious stricture. 94-5 mm thin-walled cyst in the uncinate process of pancreas on CT are not clearly seen on MRI. Lesions almost certainly benign in etiology.)) Annual imaging surveillance advised, I informed the patient about the results of the MRCP and the recommendation for annual surveillance and monitoring and he verbalized understanding and acceptance to me. Then GI service cleared him for discharge however patient abdominal pain persistent, abdominal ultrasound also showed no abnormality. Then he underwent EGD today with Dr. Alejandro showing mild gastritis of the antrum. While HIDA scan showing ejection fraction 93% with some concern this is abnormal or hyperkinetic, after the EGD and the HIDA scan surgery team for discharge and follow-up as an outpatient for possible gallbladder surgery or at least reevaluation by surgery team. Patient informed and he agrees with the appointments made for him with Dr. Alejandro on 11/19 and thought maybe he will follow-up. On the day of discharge patient abdominal pain could be controlled with pain medication also patient is able to eat and drink normally, he was able to eat 100% of his meals at times. And he denies any other symptoms no chest pain or dyspnea. No change in urine habits. No fever. Patient was cleared for discharge by all consultants and patient is agreeable for discharge. Problems and management plan were discussed with the patient and he verbalized understanding and acceptance Patient was found stable and can be discharged home however he needs follow-up as an outpatient. Patient was instructed to follow up with PCP within one week and patient agrees. Patient states that he has no PCP. Patient was advised to follow up with his medical insurance provider to finite ending up by PCP and call make appointment in 1 week and he told me he will do that. Also patient agrees with Dr. Alejandro appointment on 11/19 and patient was instructed to follow up with Dr. Bhandari GI in 2 weeks and urologist in 4 weeks for his kidney stones and he verbalized understanding and acceptance Physical exam Gen: patient is a AAOx3, no distress CVS: S1-S2, RRR, no murmur Lungs: B/L CTA, no wheezing -Abdomen: soft, no distention, mild right abdomen tenderness, no rebound tenderness or guarding positive bowel sounds. Extremity: no leg edema or induration Time spent more than 35 minutes Patient Condition at Discharge: Stable Plan - Discharge Summary New Discharge Prescriptions: New Dicyclomine [Bentyl] 20 mg PO QID PRN #60 tab PRN Reason: Dyspepsia Lidocaine 5% Patch [Lidoderm 5% Patch] 1 patch TOPICAL DAILY #3 patch Ondansetron [Zofran] 4 mg PO Q8HR PRN 2 Days #8 tab PRN Reason: Pain Acetaminophen Tab [Tylenol] 650 mg PO Q6HR PRN 7 Days #15 tab PRN Reason: Fever And/ Or Pain Discontinued Ibuprofen [Motrin Ib] 800 mg PO Q8H PRN PRN Reason: Pain Or Fever > 100.5 Dicyclomine [Bentyl] 20 mg PO TID PRN #20 tablet PRN Reason: abdominal pain Discharge Medication List Acetaminophen Tab [Tylenol] 650 mg PO Q6HR PRN 7 Days #15 tab 11/06/21 [Rx] Dicyclomine [Bentyl] 20 mg PO QID PRN #60 tab 11/06/21 [Rx] Lidocaine 5% Patch [Lidoderm 5% Patch] 1 patch TOPICAL DAILY #3 patch 11/06/21 [Rx] Ondansetron [Zofran] 4 mg PO Q8HR PRN 2 Days #8 tab 11/06/21 [Rx] Follow up Appointment(s)/Referral(s): Guanaco May MD [STAFF PHYSICIAN] - 4 Weeks (kid stones ) Penny Bhandari MD [STAFF PHYSICIAN] - 2 Weeks None,Stated [Primary Care Provider] - 1-2 days Rj Ram MD [STAFF PHYSICIAN] - 11/19/21 8:00 am Patient Instructions/Handouts: How to Stop Smoking (DC), Upper Endoscopy (GEN) Activity/Diet/Wound Care/Special Instructions: Heart healthy diet Activity is restricted till you see your doctor try to avoid NSAIDs if possible eg motrin or ibuprofen as it might cause irritation to your stomach Discharge Disposition: HOME SELF-CARE
== END 2021-11-09 16:24 | disposition home or self-care (01) ==
LOC: EC 17:15 → 6NMEDSUR 22:28 → INTOOBSV 11-06 11:16 → OBSVTOIN 11-06 11:16 → UNDODISIN 11-09 16:24
PROVIDERS: ADMIT Hospitalist; ATTEND Hospitalist
DX: R10.11 Right upper quadrant pain (principal); R10.33 Periumbilical pain; R11.0 Nausea; K86.89 Other specified diseases of pancreas; F12.10 Cannabis abuse, uncomplicated; K29.70 Gastritis, unspecified, without bleeding; K86.2 Cyst of pancreas; K57.30 Diverticulosis of large intestine without perforation or abscess without bleeding; J43.9 Emphysema, unspecified; N28.1 Cyst of kidney, acquired; K21.9 Gastro-esophageal reflux disease without esophagitis; K44.9 Diaphragmatic hernia without obstruction or gangrene; M19.90 Unspecified osteoarthritis, unspecified site; F17.210 Nicotine dependence, cigarettes, uncomplicated; R73.03 Prediabetes; M54.40 Lumbago with sciatica, unspecified side; E66.9 Obesity, unspecified; Z68.25 Body mass index [BMI] 25.0-25.9, adult; Z20.822 Contact with and (suspected) exposure to COVID-19; Z86.718 Personal history of other venous thrombosis and embolism; Z87.442 Personal history of urinary calculi; Z86.711 Personal history of pulmonary embolism; Z87.09 Personal history of other diseases of the respiratory system; Z86.59 Personal history of other mental and behavioral disorders; Z88.5 Allergy status to narcotic agent; Z71.9 Counseling, unspecified; Z71.6 Tobacco abuse counseling; Z82.49 Family history of ischemic heart disease and other diseases of the circulatory system; Z82.5 Family history of asthma and other chronic lower respiratory diseases; Z83.438 Family history of other disorder of lipoprotein metabolism and other lipidemia; Z84.1 Family history of disorders of kidney and ureter; Z82.69 Family history of other diseases of the musculoskeletal system and connective tissue; Z80.0 Family history of malignant neoplasm of digestive organs
CPT/HCPCS: 96376 ×3; 96361 ×3; 96375 ×2; 96374; 99285; 36415; 93005; 88305; 80053 ×2; 80048 ×2; 80076; 83605; 83690; 84484; 85025 ×3; 85027; 85610; 85730; 81003; 87635; 74018; 76705; 74181; 78227; 43239; G0378 ×7; A9537; S4990 ×6; J2405 ×6; J2805; J2001; J1885 ×5; J1170 ×3; J2704

== ENCOUNTER 2021-12-01 08:55 | Day surgery (SDC) | payer OTHER ==
[~2021-12-01 08:55] MED LIST: ACETAMINOPHEN TAB 500 MG TAB PO PRN; DEXAMETHASONE SOD PHOSPHATE 4 MG/ML 1 ML VIAL IV ONE; HEPARIN SODIUM,PORCINE/PF 5,000 UNIT/0.5 ML SYRINGE SQ PRN; LIDOCAINE 1% (10MG/ML) FOR IV START INTRADERMA PRN; ONDANSETRON 4 MG/2 ML VIAL IVP ONE; SCOPOLAMINE 1.5MG/72HR PATCH TRANSDERM ONE
[2021-12-01] MEDS: LACTATED RINGERS 1,000 ML IV SCH ×2 (09:41→13:13)
--- NOTE | 2021-12-01 11:31 | P.GSHP ---
History of Present Illness H&P Date: 12/01/21 Chief Complaint: Right upper quadrant pain This is a 38-year-old male who's had complaints requiring pain. His recent HIDA scan shows a evidence of a hyperkinetic gallbladder was elevated ejection fraction. He presents today for laparoscopic cholecystectomy Past Medical History Past Medical History: Chest Pain / Angina, COPD, Deep Vein Thrombosis (DVT), GERD/Reflux Additional Past Medical History / Comment(s): sciatica , pneumothorax x2, emphysema,DJD,KIDNEY STONES,HIATAL HERNIA, DVT in heidy and left side of the neck History of Any Multi-Drug Resistant Organisms: None Reported Past Surgical History: Heart Catheterization Additional Past Surgical History / Comment(s): left lung biopsy, BLEBS REMOVED, spontaneous pneumo X2 requitring c/t. HAD TUBES IN EAR CHILD, ENDOSCOPY Past Anesthesia/Blood Transfusion Reactions: No Reported Reaction Past Psychological History: Anxiety, Depression Additional Psychological History / Comment(s): pt uses marijuana. 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 NO SERVICE IN PAST. DEINES ANY HOME CARE SERVICES RECIVED, NO MEDICAL EQUIPMENT. Smoking Status: Current every day smoker Past Alcohol Use History: Occasional Additional Past Alcohol Use History / Comment(s): STARTED SMOKING AT AGE 12- SMOKES 1 ppd, stated DRINKS LESS THAN 14 DRINKS PER WEEK Past Drug Use History: Marijuana - Past Family History Father Family Medical History: Cancer, COPD, Hyperlipidemia, Hypertension, Myocardial Infarction ([place]), Renal Disease Additional Family Medical History / Comment(s): DAD AT AGE 67- EMPHYSEMA, VALVE REPLACEMENT 1983, of carcinoma "CUPS" Mother Additional Family Medical History / Comment(s): MOM IS 70 HAS MS Medications and Allergies Home Medications Medication Instructions Recorded Confirmed Type Acetaminophen Tab [Tylenol] 650 mg PO Q6HR PRN 7 Days #15 tab 11/06/21 12/01/21 Rx Dicyclomine [Bentyl] 20 mg PO QID PRN #60 tab 11/06/21 12/01/21 Rx Lidocaine 5% Patch [Lidoderm 5% 1 patch TOPICAL DAILY #3 patch 11/06/21 Rx Patch] Ondansetron [Zofran] 4 mg PO Q8HR PRN 2 Days #8 tab 11/06/21 12/01/21 Rx Allergies Allergy/AdvReac Type Severity Reaction Status Date / Time morphine AdvReac Unknown Hallucinati Verified 12/01/21 09:18 ons Surgical - Exam Vital Signs Temp Pulse Resp BP Pulse Ox 97.7 F 71 16 128/77 97 12/01/21 09:24 12/01/21 09:24 12/01/21 09:24 12/01/21 09:24 12/01/21 09:24 - General well developed, well nourished, no distress - Eyes PERRL - ENT normal pinna - Neck no masses - Respiratory normal expansion - Cardiovascular Rhythm: regular - Abdomen Abdomen: soft, non tender Assessment and Plan Assessment: Biliary hyperkinesia Chronic low cyst We'll perform laparoscopic cholecystectomy
[2021-12-01] MEDS ORDERED: SUCCINYLCHOLINE CHLORIDE 100 MG/5 ML SYR IV ONE (11:58)
[2021-12-01] MEDS ORDERED: MIDAZOLAM 2 MG/2 ML VIAL ONE (11:58)
[2021-12-01] MEDS ORDERED: NEOSTIGMINE 1 MG/ML 10 ML VIAL ONE (11:58)
[2021-12-01] MEDS ORDERED: PROPOFOL 10 MG/ML 20 ML VIAL IV ONE (11:58)
[2021-12-01] MEDS ORDERED: HYDROmorphone (PF) 1 MG/ML ONE (11:58)
[2021-12-01] MEDS ORDERED: LIDOCAINE 1% INJ 10MG/ML (20 ML MDV) ONE (11:58)
[2021-12-01] MEDS ORDERED: fentaNYL (PF) 50 MCG/ML 2 ML AMP ONE (11:58)
[2021-12-01] MEDS ORDERED: ROCURONIUM 10 MG/ML (5 ML VIAL) IV ONE (11:58)
[2021-12-01] MEDS ORDERED: GLYCOPYRROLATE 0.2 MG/ML 2 ML VIAL ONE (11:58)
[2021-12-01] MEDS ORDERED: BUPIVACAIN-EPI 0.25%-1:200,000 30 ML VIAL SQ ONE (12:22)
--- NOTE | 2021-12-01 12:37 | P.OP ---
Date of Procedure: 12/01/21 Preoperative Diagnosis: Cholecystitis Postoperative Diagnosis: Cholecystitis Procedure(s) Performed: Laparoscopic cholecystectomy Anesthesia: COLT Surgeon: Rj Ram Estimated Blood Loss (ml): 5 Pathology: other (Gallbladder) Condition: stable Disposition: PACU Description of Procedure: The patient was placed on the operating table. The patient received a general endotracheal tube anesthesia. The patients abdomen was prepped and draped in the usual sterile fashion. Through an infraumbilical stab incision, the fascia of the anterior abdominal wall was grasped with a pair of Kochers and then the Veress needle was placed in the peritoneal cavity. Position of the Veress needle was confirmed with positive drop test. The abdomen was then insufflated. After adequate insufflation, the 10 mm trocar was placed in the peritoneal cavity. Following this the laparoscope was placed in the peritoneal cavity. The patient was placed in the head-up, right side up position and then a 5 mm trocar was placed in the right lateral and right subcostal position under direct visualization. A 8 mm trocar was placed in the epigastric position. The gallbladder was grasped in the fundus and infundibulum. Traction on the gallbladder was placed in the lateral and the cephalad positions. The triangle of Calot was visualized.. The cystic duct was bluntly dissected until the union of the cystic duct and common bile duct was seen. A critical view of safety was achieved. The cystic duct was then divided and sealed with the Harmonic scissors. A PDS Endoloop was then placed throughout the cystic duct stump. The cystic artery divided and sealed with the Harmonic scissors. The gallbladder was then removed from the liver bed using Harmonic scissors. The gallbladder was then extracted through the epigastric port site. Operative field was checked for any bleeding spots and Harmonic scissors was used to coagulate the liver bed. The abdomen was irrigated. The trocars were removed. The skin was closed using interrupted 3-0 Vicryl suture. Dermabond dressing were applied. The patient tolerated the procedure well.
[2021-12-01 12:48] VITALS: TEMP 97.4
[2021-12-01] MEDS ORDERED: HYDROmorphone 0.5 MG/0.5 ML SYRINGE IVP ONE (12:54)
[2021-12-01] MEDS ORDERED: KETOROLAC 15 MG/ML 1 ML VIAL IVP ONE (12:55)
[2021-12-01 13:00] VITALS: RESP 16
[2021-12-01] MEDS: fentaNYL (PF) 50 MCG/ML 2 ML AMP IV PRN ×2 (13:07→13:13)
[2021-12-01] MEDS ORDERED: KETOROLAC 30 MG/ML 1 ML VIAL ONE (14:02)
[2021-12-01] MEDS ORDERED: SIMETHICONE 40 MG/0.6 ML DROPS 2,000 MG/30 ML BOTTLE PO ONE (14:04)
[2021-12-01 15:01] VITALS: BP 128/78; PULSE 75
== END 2021-12-01 15:43 | disposition home or self-care (01) ==
LOC: OR 08:55
PROVIDERS: ATTEND Surgery
DX: K81.1 Chronic cholecystitis (principal); J44.9 Chronic obstructive pulmonary disease, unspecified; Z86.718 Personal history of other venous thrombosis and embolism; K21.9 Gastro-esophageal reflux disease without esophagitis; M54.30 Sciatica, unspecified side; F32.A Depression, unspecified; Z87.09 Personal history of other diseases of the respiratory system; Z87.442 Personal history of urinary calculi; Z98.890 Other specified postprocedural states; F17.210 Nicotine dependence, cigarettes, uncomplicated; F41.9 Anxiety disorder, unspecified; Z83.438 Family history of other disorder of lipoprotein metabolism and other lipidemia; Z82.49 Family history of ischemic heart disease and other diseases of the circulatory system; Z84.1 Family history of disorders of kidney and ureter; Z83.6 Family history of other diseases of the respiratory system; Z79.899 Other long term (current) drug therapy; Z88.5 Allergy status to narcotic agent
CPT/HCPCS: 88304; 47562; J2250; J1100; J2710; J0690; J2405; J2001; J3010; J1170 ×2; J1885; J0330; J2704; J1644

== ENCOUNTER 2023-10-31 20:37 | Emergency (ER) | payer OTHER ==
--- NOTE | 2023-10-31 21:00 | ED ---
Abdominal Pain HPI - General Source: patient, RN notes reviewed Mode of arrival: EMS <Bessie Quinn - Last Filed: 10/31/23 20:58> <Eleonora Cano - Last Filed: 11/01/23 20:22> <Matthias Cardoza - Last Filed: 11/08/23 07:42> - General Chief Complaint: Abdominal Pain Stated Complaint: abd pain Time Seen by Provider: 10/31/23 20:58 - History of Present Illness Initial Comments: Patient is a 48-year-old male presenting to the ER with chief complaint of left- sided abdominal pain. Patient states it started about an hour ago. Patient denies any fevers or chills. Patient does have a history of kidney stones. (Bessie Quinn) 48-year-old male presenting with chief complaint of left-sided flank pain. Patient states that the pain started today. Patient does have history of kidney stones. He also states that today he was having some difficulty urinating. No dysuria, fever, chills, nausea, vomiting, hematuria, diarrhea. (Eleonora Cano) - Related Data Previous Rx's Medication Instructions Recorded Acetaminophen Tab [Tylenol] 650 mg PO Q6HR PRN 7 Days #15 tab 11/06/21 Dicyclomine [Bentyl] 20 mg PO QID PRN #60 tab 11/06/21 Lidocaine 5% Patch [Lidoderm 5% 1 patch TOPICAL DAILY #3 patch 11/06/21 Patch] Ondansetron [Zofran] 4 mg PO Q8HR PRN 2 Days #8 tab 11/06/21 Acetaminophen Tab [Tylenol] 650 mg PO Q6H #30 tab 12/01/21 Docusate [Colace] 100 mg PO BID #20 capsule 12/01/21 Ibuprofen [Motrin] 600 mg PO Q6HR PRN #40 tab 12/01/21 oxyCODONE HCL [OxyIR] 5 mg PO Q6H PRN 3 Days #10 tab 12/01/21 Allergies Allergy/AdvReac Type Severity Reaction Status Date / Time morphine AdvReac Unknown Hallucinati Verified 10/31/23 20:49 ons Review of Systems ROS Other: All systems not noted in ROS Statement are negative. <Bessie Quinn - Last Filed: 12/11/23 20:58> ROS Other: All systems not noted in ROS Statement are negative. <JeromeAricrichy - Last Filed: 11/01/23 20:22> ROS Other: All systems not noted in ROS Statement are negative. <NaniMatthias - Last Filed: 11/08/23 07:42> ROS Statement: Those systems with pertinent positive or pertinent negative responses have been documented in the HPI. Past Medical History Past Medical History: Chest Pain / Angina, COPD, Deep Vein Thrombosis (DVT), GERD/Reflux Additional Past Medical History / Comment(s): sciatica , pneumothorax x2, emphysema,DJD,KIDNEY STONES,HIATAL HERNIA, DVT in heidy and left side of the neck History of Any Multi-Drug Resistant Organisms: None Reported Past Surgical History: Heart Catheterization Additional Past Surgical History / Comment(s): left lung biopsy, BLEBS REMOVED, spontaneous pneumo X2 requitring c/t. HAD TUBES IN EAR CHILD, ENDOSCOPY Past Anesthesia/Blood Transfusion Reactions: No Reported Reaction Past Psychological History: Anxiety, Depression Smoking Status: Current every day smoker Past Alcohol Use History: Occasional Past Drug Use History: Marijuana - Past Family History Father Family Medical History: Cancer, COPD, Hyperlipidemia, Hypertension, Myocardial Infarction ([place]), Renal Disease Additional Family Medical History / Comment(s): DAD AT AGE 67- EMPHYSEMA, VALVE REPLACEMENT 1983, of carcinoma "CUPS" Mother Additional Family Medical History / Comment(s): MOM IS 70 HAS MS <Bessie Quinn - Last Filed: 10/31/23 20:58> General Exam <Bessie Qunin - Last Filed: 10/31/23 20:58> Limitations: no limitations General appearance: alert, in no apparent distress Head exam: Present: atraumatic, normocephalic, normal inspection Eye exam: Present: normal appearance, EOMI Neck exam: Present: normal inspection, full ROM Respiratory exam: Present: normal lung sounds bilaterally. Absent: respiratory distress, wheezes, rales, rhonchi, stridor Cardiovascular Exam: Present: regular rate, normal rhythm, normal heart sounds. Absent: systolic murmur, diastolic murmur, rubs, gallop, clicks GI/Abdominal exam: Present: soft, tenderness. Absent: distended, guarding, rebound, rigid Back exam: Present: normal inspection, CVA tenderness (L). Absent: CVA tend erness (R) Neurological exam: Present: alert, oriented X3 Psychiatric exam: Present: normal affect, normal mood Skin exam: Present: warm, dry, intact, normal color. Absent: rash <Eleonora Cano - Last Filed: 11/01/23 20:22> - General Exam Comments Initial Comments: Visual Physical Exam Vital signs reviewed General: Well-appearing, nontoxic, no acute distress. Head: Normocephalic, atraumatic Eyes: PERRLA, EOMI ENT: Airway patent Chest: Nonlabored breathing Skin: No visual rash, normal skin tone Neuro: Alert and oriented 3 Musculoskeletal: No gross abnormalities (Bessie Quinn) Course Vital Signs 10/31/23 11/01/23 20:44 06:10 Temperature 97.6 F Pulse Rate 70 61 Respiratory 18 20 Rate Blood Pressure 134/90 145/82 O2 Sat by Pulse 96 96 Oximetry Medical Decision Making <Bessie Quinn - Last Filed: 10/31/23 20:58> - Lab Data Result diagrams: 10/31/23 20:51 10/31/23 20:51 <Eleonora Cano - Last Filed: 11/01/23 20:22> - Lab Data Result diagrams: 10/31/23 20:51 10/31/23 20:51 <Matthias Cardoza - Last Filed: 11/08/23 07:42> - Medical Decision Making I performed the quick note portion of the exam. Electronically signed by Bessie Quinn PA-C (Bessie Quinn) Was pt. sent in by a medical professional or institution ([facility], [facility], urgent care, hospital, or jail...) When possible be specific @ -No Did you speak to anyone other than the patient for history (EMS, parent, family, police, friend...)? What history was obtained from this source @ -No Did you review nursing and triage notes (agree or disagree)? Why? @ -I reviewed and agree with nursing and triage notes Were old charts reviewed (outside hosp., previous admission, EMS record, old EKG, old radiological studies, urgent care reports/EKG's, jail records)? Report findings @ -No old charts were reviewed Differential Diagnosis (chest pain, altered mental status, abdominal pain women, abdominal pain men, vaginal bleeding, weakness, fever, dyspnea, syncope, headache, dizziness, GI bleed, back pain, seizure, CVA, palpatations, mental health, musculoskeletal)? @ -MDM Differential Abdominal Pain Men: Appendicitis, cholecystitis, diverticulosis, ischemic bowel, pancreatitis, hepatitis, UTI, gastroenteritis, AAA, incarcerated hernia, bowel obstruction, constipation, inflammatory bowel, hepatitis, peptic ulcer disease, splenic infarction, perforated viscus, testicular torsion... This is not meant to be an all-inclusive list EKG interpreted by me (3pts min.). @ -As above X-rays interpreted by me (1pt min.). @ -None done U/S interpreted by me (1pt. min.). @ -None done What testing was considered but not performed or refused? (CT, X-rays, U/S, labs)? Why? @ -None What meds were considered but not given or refused? Why? @ -None Did you discuss the management of the patient with other professionals (professionals i.e. , PA, [facility], lab, RT, psych nurse, social insurance specialist, safety teacher, teacher, labor relations officer, comp field case manager)? Give summary @ -No Was smoking cessation discussed for >3mins.? @ -No Was critical care preformed (if so, how long)? @ -No Were there social determinants of health that impacted care today? How? (Homelessness, low income, unemployed, alcoholism, drug addiction, transportation, low edu. Level, literacy, decrease access to med. care, shelter, rehab)? @ -No Was there de-escalation of care discussed even if they declined (Discuss DNR or withdrawal of care, Hospice)? DNR status @ -No What co-morbidities impacted this encounter? (DM, HTN, Smoking, COPD, CAD, Cancer, CVA, ARF, Chemo, Hep., AIDS, mental health diagnosis, sleep apnea, morbid obesity)? @ -None Was patient admitted / discharged? Hospital course, mention meds given and route, prescriptions, significant lab abnormalities, going to OR and other pertinent info. @ -48-year-old male presenting with chief complaint of left-sided flank pain. History and physical examination are conducted. Lab work shows no leukocytosis or anemia. Urine shows 49 rbc's. He is negative for influenza, RSV, and Covid. CT of the abdomen and pelvis is pending. Patient is signed out to my attending for further management and disposition. (Eleonora Cano) Was patient admitted / discharged? Hospital course, mention meds given and route, prescriptions, significant lab abnormalities, going to OR and other pertinent info. @ -[hospital course] Undiagnosed new problem with uncertain prognosis? @ -[No] Drug Therapy requiring intensive monitoring for toxicity (Heparin, Nitro, Insulin, Cardizem)? @ -[No] Were any procedures done? @ -[No] Diagnosis/symptom? @ -[Acute kidney stone Acute, or Chronic, or Acute on Chronic? @ -[Acute Uncomplicated (without systemic symptoms) or Complicated (systemic symptoms)? @ -[Uncomplicated Side effects of treatment? @ -[No] Exacerbation, Progression, or Severe Exacerbation? @ -[No] Poses a threat to life or bodily function? How? (Chest pain, [place], [place], pneumonia, PE, COPD, DKA, ARF, appy, cholecystitis, CVA, Diverticulitis, Homicidal, Suicidal, threat to staff... and all critical care pts) @ -[No] (Matthias Cardoza) - Lab Data Lab Results 10/31/23 10/31/23 10/31/23 Range/Units 20:51 20:51 20:51 WBC 9.4 (3.8-10.6) k/uL RBC 4.50 (4.30-5.90) m/uL Hgb 15.8 (13.0-17.5) gm/dL Hct 46.8 (39.0-53.0) % MCV 104.0 H (80.0-100.0) fL MCH 35.2 H (25.0-35.0) pg MCHC 33.8 (31.0-37.0) g/dL RDW 13.6 (11.5-15.5) % Plt Count 178 (150-450) k/uL MPV 9.0 Neutrophils % 61 % Lymphocytes % 26 % Monocytes % 8 % Eosinophils % 2 % Basophils % 1 % Neutrophils # 5.8 (1.3-7.7) k/uL Lymphocytes # 2.5 (1.0-4.8) k/uL Monocytes # 0.8 (0-1.0) k/uL Eosinophils # 0.2 (0-0.7) k/uL Basophils # 0.1 (0-0.2) k/uL Macrocytosis Slight Sodium 138 (137-145) mmol/L Potassium 4.0 (3.5-5.1) mmol/L Chloride 106 (98-107) mmol/L Carbon Dioxide 22 (22-30) mmol/L Anion Gap 10 mmol/L BUN 12 (9-20) mg/dL Creatinine 0.98 (0.66-1.25) mg/dL Est GFR (CKD-EPI)AfAm >90 (>60 ml/min/1.73 sqM) Est GFR (CKD-EPI)NonAf >90 (>60 ml/min/1.73 sqM) Glucose 115 H (74-99) mg/dL Plasma Lactic Acid Tee (0.7-2.0) mmol/L Calcium 8.8 (8.4-10.2) mg/dL Total Bilirubin 0.4 (0.2-1.3) mg/dL AST 20 (17-59) U/L ALT 11 (4-49) U/L Alkaline Phosphatase 65 (38-126) U/L Total Protein 6.2 L (6.3-8.2) g/dL Albumin 3.6 (3.5-5.0) g/dL Amylase 44 (30-110) U/L Lipase 93 (23-300) U/L Urine Color Urine Appearance (Clear) Urine pH (5.0-8.0) Ur Specific [place] (1.001-1.035) Urine Protein (Negative) Urine Glucose (UA) (Negative) Urine Ketones (Negative) Urine Blood (Negative) Urine Nitrite (Negative) Urine Bilirubin (Negative) Urine Urobilinogen (<2.0) mg/dL Ur Leukocyte Esterase (Negative) Urine RBC (0-5) /hpf Urine WBC (0-5) /hpf Ur Squamous Epith Cells (0-4) /hpf Urine Bacteria (None) /hpf Hyaline Casts (0-2) /lpf Urine Mucus (None) /hpf Influenza Type A (PCR) (Not Detectd) Influenza Type B (PCR) (Not Detectd) RSV (PCR) (Not Detectd) SARS-CoV-2 (PCR) (Not Detectd) 10/31/23 10/31/23 10/31/23 Range/Units 21:03 21:03 23:59 WBC (3.8-10.6) k/uL RBC (4.30-5.90) m/uL Hgb (13.0-17.5) gm/dL Hct (39.0-53.0) % MCV (80.0-100.0) fL MCH (25.0-35.0) pg MCHC (31.0-37.0) g/dL RDW (11.5-15.5) % Plt Count (150-450) k/uL MPV Neutrophils % % Lymphocytes % % Monocytes % % Eosinophils % % Basophils % % Neutrophils # (1.3-7.7) k/uL Lymphocytes # (1.0-4.8) k/uL Monocytes # (0-1.0) k/uL Eosinophils # (0-0.7) k/uL Basophils # (0-0.2) k/uL Macrocytosis Sodium (137-145) mmol/L Potassium (3.5-5.1) mmol/L Chloride (98-107) mmol/L Carbon Dioxide (22-30) mmol/L Anion Gap mmol/L BUN (9-20) mg/dL Creatinine (0.66-1.25) mg/dL Est GFR (CKD-EPI)AfAm (>60 ml/min/1.73 sqM) Est GFR (CKD-EPI)NonAf (>60 ml/min/1.73 sqM) Glucose (74-99) mg/dL Plasma Lactic Acid Tee 0.8 (0.7-2.0) mmol/L Calcium (8.4-10.2) mg/dL Total Bilirubin (0.2-1.3) mg/dL AST (17-59) U/L ALT (4-49) U/L Alkaline Phosphatase (38-126) U/L Total Protein (6.3-8.2) g/dL Albumin (3.5-5.0) g/dL Amylase (30-110) U/L Lipase (23-300) U/L Urine Color Yellow Urine Appearance Clear (Clear) Urine pH 6.0 (5.0-8.0) Ur Specific [place] 1.020 (1.001-1.035) Urine Protein Trace H (Negative) Urine Glucose (UA) Negative (Negative) Urine Ketones 1+ H (Negative) Urine Blood Moderate H (Negative) Urine Nitrite Negative (Negative) Urine Bilirubin Negative (Negative) Urine Urobilinogen <2.0 (<2.0) mg/dL Ur Leukocyte Esterase Negative (Negative) Urine RBC 49 H (0-5) /hpf Urine WBC 4 (0-5) /hpf Ur Squamous Epith Cells <1 (0-4) /hpf Urine Bacteria Occasional H (None) /hpf Hyaline Casts 1 (0-2) /lpf Urine Mucus Rare H (None) /hpf Influenza Type A (PCR) Not Detected (Not Detectd) Influenza Type B (PCR) Not Detected (Not Detectd) RSV (PCR) Not Detected (Not Detectd) SARS-CoV-2 (PCR) Not Detected (Not Detectd) Disposition <Bessie Quinn - Last Filed: 10/31/23 20:58> <Eleonora Cano - Last Filed: 11/01/23 20:22> Is patient prescribed a controlled substance at d/c from ED?: No <Matthias Cardoza - Last Filed: 11/08/23 07:42> Clinical Impression: Kidney stone on left side Disposition: HOME SELF-CARE Condition: Good Referrals: None,Stated [Primary Care Provider] - 1-2 days
[2023-10-31 21:05] VITALS: TEMP 97.6
[2023-10-31 21:18] LABS: ALT 11 U/L (4-49); AST 20 U/L (17-59); African American GFR (CKD) >90 (>60 ml/min/1.73 sqM); Albumin 3.6 g/dL (3.5-5.0); Alkaline Phosphatase 65 U/L (38-126); Anion Gap 10 mmol/L; Blood Urea Nitrogen 12 mg/dL (9-20); Calcium 8.8 mg/dL (8.4-10.2); Carbon Dioxide 22 mmol/L (22-30); Chloride 106 mmol/L (98-107); Glucose 115 mg/dL (74-99); Non-African American GFR(CKD) >90 (>60 ml/min/1.73 sqM); Sodium 138 mmol/L (137-145); Total Bilirubin 0.4 mg/dL (0.2-1.3); Total Protein 6.2 g/dL (6.3-8.2)
[2023-10-31 21:31] LABS: Basophils # (A) 0.1 k/uL (0-0.2); Basophils % (A) 1 %; Eosinophils # (A) 0.2 k/uL (0-0.7); Eosinophils % (A) 2 %; HCT 46.8 % (39.0-53.0); HGB 15.8 gm/dL (13.0-17.5); Lymphocytes # (A) 2.5 k/uL (1.0-4.8); Lymphocytes % (A) 26 %; MCH 35.2 pg (25.0-35.0); MCHC 33.8 g/dL (31.0-37.0); Macrocytosis Slight; Monocytes # (A) 0.8 k/uL (0-1.0); Monocytes % (A) 8 %; Neutrophils # (A) 5.8 k/uL (1.3-7.7); Neutrophils % (A) 61 %; Platelet Count 178 k/uL (150-450); RDW 13.6 % (11.5-15.5); WBC 9.4 k/uL (3.8-10.6)
[2023-10-31 21:37] LABS: Amylase 44 U/L (30-110); Lipase 93 U/L (23-300)
[2023-10-31] MEDS ORDERED: KETOROLAC 15 MG/ML 1 ML VIAL IM STA (23:31)
[2023-10-31] MEDS ORDERED: KETOROLAC 15 MG/ML 1 ML VIAL IVP STA (23:38)
[2023-11-01 00:43] LABS: Bacteria,Urine Occasional /hpf; Hyaline Casts,Urine 1 /lpf (0-2); Mucus,Urine Rare /hpf; RBC,Urine 49 /hpf (0-5); Squamous Epithelial Cell,Urine <1 /hpf (0-4); WBC,Urine 4 /hpf (0-5)
[2023-11-01 00:58] LABS: Appearance,Urine Clear (Clear); Color,Urine Yellow
[2023-11-01 00:59] LABS: Bilirubin,Urine Negative (Negative); Blood,Urine Moderate (Negative); Glucose,Urine (UA) Negative (Negative); Ketones,Urine 1+ (Negative); Leukocyte Esterase,Urine Negative (Negative); Nitrite,Urine Negative (Negative); Protein,Urine Trace (Negative); Urobilinogen,Urine <2.0 mg/dL (<2.0)
[2023-11-01] MEDS ORDERED: HYDROmorphone 0.5 MG/0.5 ML SYRINGE IVP STA ×3 (01:25→05:58)
--- NOTE | 2023-11-01 04:28 | CT ---
EXAM: CT Abdomen and Pelvis Without Intravenous Contrast CLINICAL HISTORY: ITS.REASON CT Reason: L flank pain TECHNIQUE: Axial computed tomography images of the abdomen and pelvis without intravenous contrast. CTDI is 7.2 mGy and DLP is 452.7 mGy-cm. This CT exam was performed using one or more of the following dose reduction techniques: automated exposure control, adjustment of the mA and/or kV according to patient size, and/or use of iterative reconstruction technique. COMPARISON: No relevant prior studies available. FINDINGS: Limitations: Limited examination the absence of contrast. Lung bases: Unremarkable. No mass. No consolidation. ABDOMEN: Liver: Unremarkable. Gallbladder and bile ducts: Unremarkable. No calcified stones. No ductal dilation. Pancreas: Unremarkable. No ductal dilation. Spleen: Unremarkable. No splenomegaly. Adrenals: Unremarkable. No mass. Kidneys and ureters: Mild left perinephric and periureteral stranding which likely relates to sequelae of recently passed calculus. Sequelae of ascending urinary tract infection also possible. Simple right renal cyst. No follow-up of this simple cyst is necessary. No hydronephrosis. Stomach and bowel: Unremarkable. No obstruction. No mucosal thickening. PELVIS: Appendix: No findings to suggest acute appendicitis. Bladder: Findings suspicious for recently passed calculus with to limit her calculus in the bladder. Given bladder wall thickening and adjacent stranding, cystitis is also possible. Reproductive: Unremarkable as visualized. ABDOMEN and PELVIS: Intraperitoneal space: Unremarkable. No free air. No significant fluid collection. Bones/joints: Degenerative changes in the spine. No acute fracture. No dislocation. Soft tissues: Unremarkable. Vasculature: Atherosclerotic disease. No abdominal aortic aneurysm. Lymph nodes: Unremarkable. No enlarged lymph nodes. IMPRESSION: 1. Findings suspicious for recently passed calculus with to limit her calculus in the bladder. Given bladder wall thickening and adjacent stranding, cystitis is also possible. 2. Mild left perinephric and periureteral stranding which likely relates to sequelae of recently passed calculus. Sequelae of ascending urinary tract infection also possible. 3. No other acute findings. 4. Incidental findings as described.
[2023-11-01 06:25] VITALS: BP 145/82; PULSE 61; RESP 20
== END 2023-11-01 06:11 | disposition home or self-care (01) ==
LOC: EC 20:37
DX: N20.0 Calculus of kidney (principal); J44.9 Chronic obstructive pulmonary disease, unspecified; F17.200 Nicotine dependence, unspecified, uncomplicated; Z88.5 Allergy status to narcotic agent; Z86.59 Personal history of other mental and behavioral disorders; Z20.822 Contact with and (suspected) exposure to COVID-19
CPT/HCPCS: 36415; 80053; 82150; 83605; 83690; 85025; 81001; 87636; 74176; 99285; 96374; 96375; 96376 ×2; J1885; J1170

== ENCOUNTER 2024-10-14 13:15 | Emergency (ER) | payer OTHER ==
[2024-10-14 13:24] VITALS: RESP 18; TEMP 98.2
--- NOTE | 2024-10-14 13:56 | ED ---
General Adult HPI - General Chief complaint: Fall Stated complaint: FALL Time Seen by Provider: 10/14/24 13:20 Source: patient, EMS, RN notes reviewed Mode of arrival: EMS Limitations: no limitations - History of Present Illness Initial comments: Patient is a 49-year-old male presenting to the emergency department with concerns of a fall. Patient was walking down the steps, more than half of a flight when he tripped. Patient did strike the back of his head. Patient unclear whether or not he lost consciousness. Patient does have some discomfort of his neck and back. Patient also has discomfort of his right hand, right hip and right knee. Patient was able to ambulate a couple of steps. - Related Data Previous Rx's Medication Instructions Recorded Acetaminophen Tab [Tylenol] 650 mg PO Q6HR PRN 7 Days #15 tab 11/06/21 Dicyclomine [Bentyl] 20 mg PO QID PRN #60 tab 11/06/21 Lidocaine 5% Patch [Lidoderm 5% 1 patch TOPICAL DAILY #3 patch 11/06/21 Patch] Ondansetron [Zofran] 4 mg PO Q8HR PRN 2 Days #8 tab 11/06/21 Acetaminophen Tab [Tylenol] 650 mg PO Q6H #30 tab 12/01/21 Docusate [Colace] 100 mg PO BID #20 capsule 12/01/21 Ibuprofen [Motrin] 600 mg PO Q6HR PRN #40 tab 12/01/21 oxyCODONE HCL [OxyIR] 5 mg PO Q6H PRN 3 Days #10 tab 12/01/21 Cyclobenzaprine [Flexeril] 10 mg PO TID PRN #12 tablet 10/14/24 Allergies Allergy/AdvReac Type Severity Reaction Status Date / Time morphine AdvReac Unknown Hallucinati Verified 10/31/23 20:49 ons Review of Systems ROS Statement: Those systems with pertinent positive or pertinent negative responses have been documented in the HPI. ROS Other: All systems not noted in ROS Statement are negative. Constitutional: Denies: fever Eyes: Denies: eye pain ENT: Denies: ear pain Respiratory: Denies: cough Cardiovascular: Denies: chest pain Endocrine: Denies: fatigue Gastrointestinal: Denies: abdominal pain Musculoskeletal: Reports: as per HPI, back pain Neurological: Reports: as per HPI, headache. Denies: weakness, confusion Past Medical History Past Medical History: Chest Pain / Angina, COPD, Deep Vein Thrombosis (DVT), GERD/Reflux Additional Past Medical History / Comment(s): sciatica , pneumothorax x2, emphysema,DJD,KIDNEY STONES,HIATAL HERNIA, DVT in heidy and left side of the neck History of Any Multi-Drug Resistant Organisms: None Reported Past Surgical History: Heart Catheterization Additional Past Surgical History / Comment(s): left lung biopsy, BLEBS REMOVED, spontaneous pneumo X2 requitring c/t. HAD TUBES IN EAR CHILD, ENDOSCOPY Past Anesthesia/Blood Transfusion Reactions: No Reported Reaction Past Psychological History: Anxiety, Depression Smoking Status: Current every day smoker Past Alcohol Use History: Occasional Past Drug Use History: Marijuana - Past Family History Father Family Medical History: Cancer, COPD, Hyperlipidemia, Hypertension, Myocardial Infarction (VT), Renal Disease Additional Family Medical History / Comment(s): DAD AT AGE 67- EMPHYSEMA, VALVE REPLACEMENT 1983, of carcinoma "CUPS" Mother Additional Family Medical History / Comment(s): MOM IS 70 HAS MS General Exam Limitations: no limitations General appearance: alert, in no apparent distress Head exam: Present: other (Questionable soft tissue swelling posterior scalp) Eye exam: Present: normal appearance, PERRL, EOMI ENT exam: Present: normal exam Neck exam: Present: tenderness (Mild diffuse cervical spine) Respiratory exam: Present: normal lung sounds bilaterally Cardiovascular Exam: Present: regular rate, normal rhythm GI/Abdominal exam: Present: soft, tenderness (Minimal epigastric tenderness). Absent: distended, guarding, rebound, rigid Extremities exam: Present: tenderness (Tenderness right distal ulnar hand especially ring finger. Mild tenderness to moderate tenderness right hip and right knee. Distally all extremities are neurovascular intact) Back exam: Present: tenderness (Mild to moderate mid thoracic and lumbar) Neurological exam: Present: alert, oriented X3, CN II-XII intact. Absent: motor sensory deficit Expanded Neurological exam: Present: protecting the airway Patient oriented to: Present: person, place, time Speech: Present: fluid speech Cranial nerves: EOM's Intact: Normal Motor strength exam: RUE: 5, LUE: 5, RLE: 5, LLE: 5 Eye Response: (4) open spontaneously Motor Response: (6) obeys commands Verbal Response: (5) oriented Psychiatric exam: Present: normal affect, normal mood Skin exam: Present: normal color Course Vital Signs 10/14/24 10/14/24 13:18 14:27 Temperature 98.2 F Pulse Rate 74 79 Respiratory 18 18 Rate Blood Pressure 125/85 129/98 O2 Sat by Pulse 96 95 Oximetry Procedures - Orthopedic Splinting/Casting Injury #1 Side: right Upper Extremity Injury Location: finger Upper Extremity Immobilizer: finger (other) (Finger splint fourth right digit) Injury #2 Side: right Upper Extremity Injury Location: finger Upper Extremity Immobilizer: finger (other) (Finger splint also placed right fifth digit) Medical Decision Making - Medical Decision Making Was pt. sent in by a medical professional or institution (, PA, STRAW HAT BRIM CUTTER OPERATOR, urgent care, hospital, or [facility]...) When possible be specific @ -No Did you speak to anyone other than the patient for history (EMS, parent, family, police, friend...)? What history was obtained from this source @ -No Did you review nursing and triage notes (agree or disagree)? Why? @ -I reviewed and agree with nursing and triage notes Were old charts reviewed (outside hosp., previous admission, EMS record, old EKG, old radiological studies, urgent care reports/EKG's, [facility] records)? Report findings @ -No old charts were reviewed Differential Diagnosis (chest pain, altered mental status, abdominal pain women, abdominal pain men, vaginal bleeding, weakness, fever, dyspnea, syncope, headache, dizziness, GI bleed, back pain, seizure, CVA, palpatations, mental health, musculoskeletal)? @ -Differential Musculoskeletal Muscular strain, contusion, ligament sprain, fracture, arthritis, septic arthritis, bursitis, cellulitis, muscle spasm, nerve compression, DVT, arterial occlusion, herpes zoster, electrolyte abnormality, tumor.... This is not meant to be in all inclusive list EKG interpreted by me (3pts min.). @ -As above X-rays interpreted by me (1pt min.). @ -X-ray right knee and right hip and pelvis did not reveal acute abnormality. X-ray right hand shows distal phalanx fingers fracture on the right hand CT interpreted by me (1pt min.). @ -CT scan of the brain, cervical spine, chest abdomen and pelvis did not reveal acute traumatic injury U/S interpreted by me (1pt. min.). @ -None done What testing was considered but not performed or refused? (CT, X-rays, U/S, labs)? Why? @ -None What meds were considered but not given or refused? Why? @ -None Did you discuss the management of the patient with other professionals (professionals i.e. , PA, STR[employer] HAT BRIM CUTTER OPERATOR, lab, RT, psych nurse, health care social worker, hull line crew member, teacher, delinquency prevention officer, case fitter)? Give summary @ -No Was smoking cessation discussed for >3mins.? @ -No Was critical care preformed (if so, how long)? @ -No Were there social determinants of health that impacted care today? How? (Homelessness, low income, unemployed, alcoholism, drug addiction, transportation, low edu. Level, literacy, decrease access to med. care, snf, rehab)? @ -No Was there de-escalation of care discussed even if they declined (Discuss DNR or withdrawal of care, Hospice)? DNR status @ -No What co-morbidities impacted this encounter? (DM, HTN, Smoking, COPD, CAD, Cancer, CVA, ARF, Chemo, Hep., AIDS, mental health diagnosis, sleep apnea, morbid obesity)? @ -Patient states previous hand fracture Was patient admitted / discharged? Hospital course, mention meds given and route, prescriptions, significant lab abnormalities, going to OR and other pertinent info. @ -Patient falls down steps. Evaluation concerning for finger fractures and these were splinted. Patient we discharged and recommended follow-up. Patient updated Undiagnosed new problem with uncertain prognosis? @ -No Drug Therapy requiring intensive monitoring for toxicity (Heparin, Nitro, Insulin, Cardizem)? @ -No Were any procedures done? @ -Finger splint x 2, see above Diagnosis/symptom? @ -Fall, finger fractures Acute, or Chronic, or Acute on Chronic? @ -Acute, acute Uncomplicated (without systemic symptoms) or Complicated (systemic symptoms)? @ -Default Side effects of treatment? @ -No Exacerbation, Progression, or Severe Exacerbation? @ -No Poses a threat to life or bodily function? How? (Chest pain, USA, VT, pneumonia, PE, COPD, DKA, ARF, appy, cholecystitis, CVA, Diverticulitis, Homicidal, Suicidal, threat to staff... and all critical care pts) @ -No - Lab Data Result diagrams: 10/14/24 14:14 10/14/24 14:14 Lab Results 10/14/24 10/14/24 10/14/24 Range/Units 14:14 14:14 14:14 WBC 9.9 (3.8-10.6) k/uL RBC 5.17 (4.30-5.90) m/uL Hgb 17.5 (13.0-17.5) gm/dL Hct 52.5 (39.0-53.0) % MCV 101.6 H (80.0-100.0) fL MCH 33.9 (25.0-35.0) pg MCHC 33.4 (31.0-37.0) g/dL RDW 13.3 (11.5-15.5) % Plt Count 250 (150-450) k/uL MPV 8.7 Neutrophils % 54 % Lymphocytes % 33 % Monocytes % 9 % Eosinophils % 1 % Basophils % 1 % Neutrophils # 5.3 (1.3-7.7) k/uL Lymphocytes # 3.3 (1.0-4.8) k/uL Monocytes # 0.9 (0-1.0) k/uL Eosinophils # 0.1 (0-0.7) k/uL Basophils # 0.1 (0-0.2) k/uL Macrocytosis Slight PT 11.3 (10.0-12.5) sec INR 1.0 (<1.2) APTT 24.3 (22.0-30.0) sec Sodium 139 (137-145) mmol/L Potassium 4.3 (3.5-5.1) mmol/L Chloride 106 (98-107) mmol/L Carbon Dioxide 24 (22-30) mmol/L Anion Gap 9 mmol/L BUN 15 (9-20) mg/dL Creatinine 0.93 (0.66-1.25) mg/dL Est GFR (CKD-EPI)AfAm >90 (>60 ml/min/1.73 sqM) Est GFR (CKD-EPI)NonAf >90 (>60 ml/min/1.73 sqM) Glucose 72 L (74-99) mg/dL Calcium 9.5 (8.4-10.2) mg/dL Total Bilirubin 0.5 (0.2-1.3) mg/dL AST 23 (17-59) U/L ALT 15 (4-49) U/L Alkaline Phosphatase 79 (38-126) U/L Total Protein 7.5 (6.3-8.2) g/dL Albumin 4.6 (3.5-5.0) g/dL Disposition Clinical Impression: Fall, Multiple contusions, Finger fracture, right Disposition: HOME SELF-CARE Condition: Stable Instructions (If sedation given, give patient instructions): Finger Fracture (ED), Fall Prevention (ED) Additional Instructions: Prescription for muscle relaxer sent to pharmacy. Please do follow-up with your primary care physician and orthopedics in the next couple of days for recheck. Return for increased pain, difficulty breathing, confusion, weakness, worsening or changing symptoms or any other concerns. Prescriptions: Cyclobenzaprine [Flexeril] 10 mg PO TID PRN #12 tablet PRN Reason: Pain Is patient prescribed a controlled substance at d/c from ED?: No Referrals: Geoff Tate MD [STAFF PHYSICIAN] - 1-2 days Corey Schultz DO [Doctor of Osteopathic Medicine] - 1-2 days Time of Disposition: 15:49
[2024-10-14] MEDS: HYDROmorphone 1 MG/ML 1 ML SYRINGE IVP STA ×2 (14:08→16:04)
[2024-10-14] MEDS: ONDANSETRON 4 MG/2 ML VIAL IVP STA (14:26)
[2024-10-14 14:48] LABS: Basophils # (A) 0.1 k/uL (0-0.2); Basophils % (A) 1 %; Eosinophils # (A) 0.1 k/uL (0-0.7); Eosinophils % (A) 1 %; HCT 52.5 % (39.0-53.0); HGB 17.5 gm/dL (13.0-17.5); Lymphocytes # (A) 3.3 k/uL (1.0-4.8); Lymphocytes % (A) 33 %; MCH 33.9 pg (25.0-35.0); MCHC 33.4 g/dL (31.0-37.0); MCV 101.6 fL (80.0-100.0); Macrocytosis Slight; Mean Platelet Volume 8.7; Monocytes # (A) 0.9 k/uL (0-1.0); Monocytes % (A) 9 %; Neutrophils # (A) 5.3 k/uL (1.3-7.7); Neutrophils % (A) 54 %; Platelet Count 250 k/uL (150-450); RBC 5.17 m/uL (4.30-5.90); RDW 13.3 % (11.5-15.5); WBC 9.9 k/uL (3.8-10.6)
[2024-10-14 14:51] LABS: ALT 15 U/L (4-49); AST 23 U/L (17-59); African American GFR (CKD) >90 (>60 ml/min/1.73 sqM); Albumin 4.6 g/dL (3.5-5.0); Alkaline Phosphatase 79 U/L (38-126); Anion Gap 9 mmol/L; Blood Urea Nitrogen 15 mg/dL (9-20); Calcium 9.5 mg/dL (8.4-10.2); Carbon Dioxide 24 mmol/L (22-30); Chloride 106 mmol/L (98-107); Glucose 72 mg/dL (74-99); Non-African American GFR(CKD) >90 (>60 ml/min/1.73 sqM); Potassium 4.3 mmol/L (3.5-5.1); Sodium 139 mmol/L (137-145); Total Bilirubin 0.5 mg/dL (0.2-1.3); Total Protein 7.5 g/dL (6.3-8.2)
[2024-10-14 14:59] LABS: Partial Thromboplastin Time 24.3 sec (22.0-30.0); Prothrombin Time 11.3 sec (10.0-12.5)
--- NOTE | 2024-10-14 15:05 | XR ---
EXAMINATION TYPE: XR hand complete RT DATE OF EXAM: 10/14/2024 CLINICAL HISTORY: Pain after falling injury. TECHNIQUE: Frontal, lateral and oblique images of the right hand are obtained. COMPARISON: Right hand x-ray 2017 FINDINGS: Study is suboptimal due to incomplete expansion of the fingers. There is age indeterminate oblique nondisplaced intra-articular type fracture through the dorsal base of the fourth and fifth di stal phalanx. Joint spaces fairly well preserved. The overlying soft tissue appears unremarkable. IMPRESSION: As above. Acute fractures need to be considered. Clinical correlation and Correlation wit h point tenderness at these levels advised [facility], , 10/14/2024 3:03 PM
--- NOTE | 2024-10-14 15:06 | XR ---
EXAMINATION TYPE: XR knee complete RT DATE OF EXAM: 10/14/2024 CLINICAL HISTORY: Pain after falling injury. TECHNIQUE: Three views of the right knee are obtained. COMPARISON: None. FINDINGS: There is no acute fracture/dislocation evident in right knee. Mild tricompartment joint sp ai loss. Overlying clothing or blanket material is present. IMPRESSION: There is no acute fracture or dislocation in the right knee. [facility], Workstation: [id number], 10/14/2024 3:04 PM
--- NOTE | 2024-10-14 15:07 | XR ---
EXAMINATION TYPE: XR Hip RT and AP Pelvis DATE OF EXAM: 10/14/2024 COMPARISON: NONE HISTORY: Smaller trauma injury with pain TECHNIQUE: A single AP view of the pelvis is obtained. Two views of the right hip are obtained. FINDINGS: There is no acute fracture/dislocation evident in the pelvis or right hip. [id number] e axial joint space loss in both hips is seen. Pubic symphysis is intact. Sacroiliac joints are felt within normal limits. Scattered tiny pelvic phleboliths are seen. IMPRESSION: There is no acute fracture or dislocation in the pelvis or right hip. [facility], , 10/14/2024 3:04 PM
--- NOTE | 2024-10-14 15:34 | CT ---
EXAMINATION TYPE: CT brain cspine wo con DATE OF EXAM: 10/14/2024 COMPARISON: Prior, CT 2017 HISTORY: Pt c/o fall down 12 stairs, head, neck, back, right hip and right knee pain. CT DLP: 1086 mGycm. Automated Exposure Control for Dose Reduction was Utilized. TECHNIQUE: CT scan of the head and cervical spine are performed without contrast. FINDINGS: There is no acute intracranial hemorrhage, mass effect, or midline shift identified. The ventricles and sulci are within normal limits in size. Shrestha-white matter differentiation is maintai penelope. The calvarium is intact. The globes are intact and the visualized sinuses are clear. Cervical spine is visualized in its entirety from C1 through upper thoracic levels and demonstrates s atisfactory alignment without evidence of acute fracture or dislocation. Prevertebral soft tissue ap pears within normal limits. The C1-C2 articulation is within normal limits on the coronal images. V ertebral body heights and disc space heights are maintained. Posterior spur disc complex at C6-C7 lev el redemonstrated effacing anterior thecal sac. Thyroid gland is within normal limits. Upper lungs ar e clear without pneumothorax. IMPRESSION: 1. There is no acute fracture or dislocation evident in the cervical spine. 2. No acute intracranial hemorrhage or midline shift is seen. [facility], , 10/14/2024 3:32 PM
--- NOTE | 2024-10-14 15:38 | CT ---
EXAMINATION TYPE: CT ChestAbdPelvis w con DATE OF EXAM: 10/14/2024 COMPARISON: CT abdomen and pelvis November 01, 2023 HISTORY: Pt c/o fall down 12 stairs, head, neck, back, right hip and right knee pain. CT DLP: 1299.4 mGycm. Automated Exposure Control for Dose Reduction was Utilized. CONTRAST: CT scan of the thorax, abdomen and pelvis is performed with IV Contrast, patient injected with 100ml mL of Isovue 300. FINDINGS: LUNGS: The lungs are grossly clear, there is no concerning parenchymal mass or focal consolidation id entified. There is no pleural effusion or pneumothorax seen. The tracheobronchial tree is patent. MEDIASTINUM: There are no greater than 1 cm hilar or mediastinal lymph nodes. No cardiomegaly or pe ricardial effusion is seen. LIVER/GB: Gallbladder not seen and presumed surgically absent similar to prior. PANCREAS: No significant abnormality is seen. SPLEEN: No significant abnormality is seen. ADRENALS: No significant abnormality is seen. KIDNEYS: Incidental 3.5 cm simple cortical cyst right kidney laterally upper pole axial image 70. BOWEL: No significant abnormality is seen. GENITAL ORGANS: No gross abnormality seen. LYMPH NODES: No greater than 1cm abdominal or pelvic lymph nodes are appreciated. OSSEOUS STRUCTURES: No significant abnormality is seen. OTHER: Mild peripheral calcified plaque of the aorta extends into branch vessels. IMPRESSION: No acute posttraumatic finding in particular No acute osseous fracture, abnormal fluid co llection, or evidence of solid organ injury in the thorax, abdomen, or pelvis. [facility], , 10/14/2024 3:36 PM
[2024-10-14] MEDS: ACET/COD 300 MG/30 MG STARTER PACK 6 TAB BTL PO STA (16:03)
[2024-10-14 16:17] VITALS: BP 124/86; PULSE 80
== END 2024-10-14 16:17 | disposition home or self-care (01) ==
LOC: EC 13:15
DX: S62.604A Fracture of unspecified phalanx of right ring finger, initial encounter for closed fracture (principal); F17.200 Nicotine dependence, unspecified, uncomplicated; Z88.5 Allergy status to narcotic agent; W10.9XXA Fall (on) (from) unspecified stairs and steps, initial encounter; Y93.01 Activity, walking, marching and hiking
CPT/HCPCS: 36415; 80053; 85025; 85610; 85730; 73502; 73130; 73562; 72125; 70450; 71260; 74177; 99284; 96374; 96375; 96376; J2405; J1171; Q9967